=== PATIENT | female | born 1950 | race Caucasian/White ===

== ENCOUNTER → 2017-12-26 09:44 | Outpatient (CLI) | payer MEDICARE, BC, SELFPAY ==
--- NOTE | 2017-12-26 | DI.MG.S_ITS ---
BILATERAL DIGITAL SCREENING MAMMOGRAM 3D/2D WITH CAD: 12/26/2017 CLINICAL: Routine screening. Family history of breast cancer. Comparison is made to exams dated: 07/07/2016 mammogram, 05/31/2015 mammogram, and 03/17/2014 mammogram - [facility]. The tissue of both breasts is extremely dense, which lowers the sensitivity of mammography. Current study was also evaluated with a Computer Aided Detection (CAD) system. There is a biopsy clip in the left breast. No significant masses, calcifications, or other findings are seen in either breast. There has been no significant interval change. IMPRESSION: NEGATIVE There is no mammographic evidence of malignancy. A 1 year screening mammogram is recommended. This exam was interpreted at Station ID: [id number]. NOTE: For mammograms, a report in lay terms will be sent to the patient. Approximately 15% of breast malignancies will not be visualized mammographically. In the management of a palpable breast mass, a negative mammogram must not discourage biopsy of a clinically suspicious lesion. Electronically Signed By: Erica han/mikal:12/26/2017 10:27:17 copy to: Erica Jonas letter sent: Normal Exam ACR BI-RADS Category 1: Negative [id number]
== END ==
PROVIDERS: Family Provider Family Medicine; Visit Provider Family Medicine
DX: Z12.31 Encounter for screening mammogram for malignant neoplasm of breast (principal); Z80.3 Family history of malignant neoplasm of breast
CPT/HCPCS: 77063; 77067

== ENCOUNTER → 2018-03-28 11:24 | Outpatient (CLI) | payer MEDICARE, BC, SELFPAY ==
--- NOTE | 2018-03-28 11:29 | DI.RAD.S_ITS ---
PROCEDURE: XR HIP W PEL IF DONE RT 2V INDICATIONS: eval hip and neck of femur as well as acetetabullar match TECHNIQUE: 2 views of the hip were acquired. COMPARISON: [facility], , HIP 2V RIGHT, 04/16/2012, 10:57. FINDINGS: Bones: No fractures or dislocations. No suspicious bony lesions. The visualized pelvic ring appears intact. Moderate narrowing of the hip joint space with subchondral sclerosis and spurring, slightly progressed since 04/16/12 Soft tissues: No suspicious soft tissue calcifications or masses. IMPRESSION: Slight interval progression in moderate right hip joint degeneration since 04/16/12. Dictated by: Vj Palmer M.D. on 03/28/2018 at 13:06 Approved by: Vj Palmer M.D. on 03/28/2018 at 13:07
== END ==
PROVIDERS: PCP Family Medicine; Visit Provider Nurse Practitioner Family
DX: M25.551 Pain in right hip (principal); M16.11 Unilateral primary osteoarthritis, right hip
CPT/HCPCS: 73502

== ENCOUNTER → 2018-11-29 09:14 | Outpatient (CLI) | payer MEDICARE, BC, SELFPAY ==
[2018-11-29 10:11] LABS: Hematocrit 41.4 % (36-46); Hemoglobin 14.1 g/dL (12.0-16.0); Mean Corpuscular Hemoglobin 28.9 PG (26-34); Mean Corpuscular Volume 85.1 fL (80-100); Platelet Count 311 X10^3/uL (150-400); Red Blood Cell Count 4.87 X10^6/uL (4.0-5.2); Red Cell Distribution Width 13.6 % (11.6-14.8); White Blood Cell Count 3.9 X10^3/uL (4.5-11.0)
[2018-11-29 10:23] LABS: Alanine Aminotransferase 21 IU/L (9-52); Albumin 4.2 g/dL (3.5-5.0); Albumin Globulin Ratio 1.4 (1.0-2.8); Alkaline Phosphatase 60 U/L (38-126); Aspartate Aminotransferase 25 IU/L (14-36); BUN Creatinine Ratio 14.3 (6-22); Bilirubin Total 1.4 mg/dL (0.2-1.3); Blood Urea Nitrogen 10 mg/dL (7-17); Calcium 9.2 mg/dL (8.4-10.2); Carbon Dioxide 34 mmol/L (22-32); Chloride 99 mmol/L (98-107); Estimated Glomerular Filt Rate > 60.0 mL/min (>60); Globulin 2.9 g/dL (1.7-4.1); Glucose 87 mg/dL (80-110); HEMOLYSIS < 15 (0-50); Potassium 3.6 mmol/L (3.4-5.1); Sodium 140 mmol/L (137-145); Total Protein 7.1 g/dL (6.3-8.2)
[2018-11-29 11:06] LABS: TSH w/ Reflex to FT4 2.23 uIU/mL (0.47-4.68)
[2018-11-29 11:13] LABS: Vitamin B12 318 pg/mL (239-931)
== END ==
PROVIDERS: PCP Family Medicine; Visit Provider Nurse Practitioner Family
DX: R53.83 Other fatigue (principal)
CPT/HCPCS: 36415; 80053; 82607; 84443; 85027

== ENCOUNTER → 2018-12-30 11:09 | Outpatient (CLI) | payer MEDICARE, BC, SELFPAY ==
--- NOTE | 2018-12-30 11:12 | DI.MG.S_ITS ---
BILATERAL DIGITAL SCREENING MAMMOGRAM 3D/2D WITH CAD: 12/30/2018 CLINICAL: Routine screening. Family history of breast cancer. Comparison is made to exams dated: 12/26/2017 mammogram, 07/07/2016 mammogram, and 05/31/2015 mammogram - [facility]. The tissue of both breasts is extremely dense, which lowers the sensitivity of mammography. Current study was also evaluated with a Computer Aided Detection (CAD) system. There is a benign biopsy clip in the left breast. No significant masses, calcifications, or other findings are seen in either breast. There has been no significant interval change. IMPRESSION: NEGATIVE There is no mammographic evidence of malignancy. A 1 year screening mammogram is recommended. This exam was interpreted at Station ID: [id number]. NOTE: For mammograms, a report in lay terms will be sent to the patient. Approximately 15% of breast malignancies will not be visualized mammographically. In the management of a palpable breast mass, a negative mammogram must not discourage biopsy of a clinically suspicious lesion. Electronically Signed By: Gabriele brown/mikal:12/30/2018 12:01:33 letter sent: Normal Exam ACR BI-RADS Category 1: Negative [id number]
== END ==
PROVIDERS: PCP Family Medicine; Visit Provider Family Medicine
DX: Z12.31 Encounter for screening mammogram for malignant neoplasm of breast (principal); Z80.3 Family history of malignant neoplasm of breast
CPT/HCPCS: 77063; 77067

== ENCOUNTER → 2019-01-13 13:31 | Outpatient (CLI) | payer MEDICARE, BC, SELFPAY ==
--- NOTE | 2019-01-13 13:33 | DI.RAD.S_ITS ---
PROCEDURE: XR CHEST 2V INDICATIONS: Cough TECHNIQUE: 2 views of the chest were acquired. COMPARISON: None. FINDINGS: Surgical changes and devices: There is a surgical clip in the left breast. Lungs and pleura: Lungs are clear. No pleural effusions or pneumothorax. Mediastinum: Mediastinal contours are normal. Heart size is normal. Bones and chest wall: No suspicious bony abnormalities. Soft tissues appear unremarkable. IMPRESSION: No acute cardiopulmonary disease. Dictated by: Mae Samuel M.D. on 01/13/2019 at 14:40 Approved by: Mae Samuel M.D. on 01/13/2019 at 14:41
== END ==
PROVIDERS: PCP Family Medicine; Visit Provider Family Medicine
DX: R05 Cough (principal)
CPT/HCPCS: 71046

== ENCOUNTER → 2019-03-27 10:39 | Outpatient (CLI) | payer MEDICARE, BC, SELFPAY ==
--- NOTE | 2019-03-27 | DI.RAD.S_ITS ---
PROCEDURE: FL BARIUM SWALLOW W SPEECH INDICATIONS: COUGH TECHNIQUE: Examination was conducted in conjunction with speech pathology per standard protocol. In the lateral projection, filming was performed of the patient swallowing. AP projection filming may also be performed with patient swallowing. COMPARISON: CXR 01/13/2019. FINDINGS: Function: The oral preparatory phase appears normal, with proper containment. Increased effort for swallowing is noted. The subsequent oral propulsive phase, pharyngeal phase, and esophageal phase of swallowing are within normal limits with all proffered substances. There is increased residue in the pharynx. Trace intermittent laryngotracheal penetration. No erickson aspiration. Small amount of vallecular and piriform sinus pooling. The patient coughed repeatedly after swallows. Morphology: No cricopharyngeal bar is identified. No cervical esophageal webs. No Zenker's diverticulum. No strictures. IMPRESSION: Trace intermittent laryngotracheal penetration. No erickson aspiration identified. Increased effort with swallowing. The patient repeatedly coughs after swallows. Please see speech pathology report. Dictated by: Lv Garza M.D. on 03/27/2019 at 12:29 Approved by: Lv Garza M.D. on 03/27/2019 at 12:33
--- NOTE | 2019-04-02 15:43 | ST.SWALLOW ---
Visit Care Team Role Provider Type Referring Provider Specialty: Address: Phone: Fax: Email: Oliva Bo DO Primary Care Provider Physician Specialty: Family Practice Address: [address] [place] [address], [address], [place], [address] Email: [email or web address] Neptali Mart MD Attending Provider Non-Staff Specialty: Allergy & Immunology Address: [address] [place] [address], [address] Email: ST Modified Barium Swallow Study CELL RELINER Modified Barium Swallow Study Start: 03/27/19 14:06 Freq: Status: Active Protocol: Document 03/27/19 14:06 LNK (Rec: 03/27/19 14:50 LNK [email or web address]) Modified Barium Swallow Study Total Time Visit Start Time 11:00 Visit Stop Time 11:30 Total Visit Minutes [address] Neptali Mart Reason for Referral cough Setting Setting Outpatient Care Patient Information Identification Type Name,Date of Patient History Tamara Mcdaniel was seen for a Modified Barium Swallow Study (MBSS) at the referral of central lab technician, Dr. Neptali Mart. Tamara had seen Dr. Mart for a recurrent cough and to determine if her allergies were contributing to her cough . Tamara reports that she coughs all the time, especially when eating/ drinking. She reports a long history of chest tightness, occassional wheezing and proximal coughing. She was diagnoses with asthma as a child Tamara has a medical history that included asthma, rhinitis, ongoing reflux and thyroid surgery. In June 2018 she had an MRI following colon surgery. The results of the MRI noted RLL atelectasis/scaring. Tamara reported that she recently had a chest xray at [facility] on 01/13/19 with the results noting no acute cardiopulmonary disease. Subjective Observations Tamara was seated in the fluoroscopy chair. Explanation of the procedure and directions for the test were provided to the patient, who indicated she understood. Patient Positioning Position View Lateral Imaging Lateral View Textures Administered Trials Presented Thin Liquid via Spoon,Thin Liquid via Cup,[place] Liquid via Spoon,[place] Liquid via Cup,Honey Liquid via Spoon, Pudding Thick Liquid via Spoon ,Regular Textures Oral Phase Source: MBSIMP (TM) (C) Bolus Specific Scoring Grid Lip Closure WFL Tongue Control During Bolus Hold WFL Bolus Prep/Mastication WFL Bolus Transport/Lingual Motion WFL A/P Lingual Propulsion Delay No Oral Residue WFL Nasal Regurgitation No Additional Oral Phase Observations Informal observation of the OM structures and function appeared grossly WNL. Natural dentition was adequate in good hygeine. Mastication was WFL with a good rotary chew. No oral residue observed post- swallow. Pharyngeal Phase Source: MBSIMP (TM) (C) Bolus Specific Scoring Grid Delayed Initiation of Pharyngeal Swallow Yes: Bolus head to the valeculla pre-swallow Soft Palate Elevation WFL Residue Along the Tongue Base Yes Clearance of Residue Along Tongue Base Mild Impairment Laryngeal Elevation Mild Impairment Anterior Hyoid Movement Moderate Impairment Epiglottic Range of Motion Moderate Impairment Vallecular Residue Yes Clearance of Vallecular Residue Moderate Impairment Laryngeal Vestibular Closure Moderate Impairment Pharyngeal Stripping Wave Moderate Impairment Posterior Pharyngeal Wall Residue Yes Clearance of Posterior Pharyngeal Wall Moderate Impairment Residue Upper Esophageal Sphincter Opening Mild Impairment Residue in the Pyriform Sinuses No Clearance of Residue in the Pyriform Mild Impairment Sinuses Esophageal Clearance Upright Position Mild Impairment Pharyngoesophageal Backflow Observed No Additional Pharyngeal Phase Observations Premature spillage into the pharyngeal cavity. Swallow response delayed until the bolus head reached the valeculla. Epiglottis did not invert resulting in consistent pooling in the valeculla. Penetration was observed into the laryngeal vestibule several times during the MBSS especially with large and/or consecutive swallows of liquids. Penetration of the residual particulate was observed x1 with solid. No aspiration observed directly. Pharyngeal stripping was incomplete, resulting in poor bolus control to the UES. Hyolaryngeal elevation was incomplete with reduced forward motion of the hyoid bone affecting the epiglottic inversion. Post swallow pooling/residue observed in the valeculla, pyriform sinuses, at the tongue base, along the posterior pharyngeal wall and at the UES. Pt coughed after most swallows . Cough was dry and at times prolonged. Again, no aspiration wa observed. However, though this can be considered normal even in a healthy swallow, there may be some microscopic aspiration that is causing her to cough so much. A double swallow for the residue was recommended along with an ENT consult for further evaluation of the chronic cough. it is possible that the pt may have a hypersensitive larynx, especially when penetration occurs. A/P View Clinical Impressions Dysphagia Type pharyngeal phase dysphagia Rehabilitation Potential Good Patient Appropriate for Therapy Yes: linguapharyngeal exercises to reduce penetration/improve epiglottic inversi Recommendations Diet Liquids Order Thin Diet Order Regular Medication Recommendation As Tolerated Aspiration Precautions Recommended Precautions Upright at 90 Degrees,Small Bites/Sips,Double Swallow, Supraglottic Swallow, Edis Maneuvor Treatment Plan Therapy Recommendations Outpatient Speech Therapy, Lingual Exercises,Base of Tongue Exercises,Compensatory Strategy Education Recommended Referrals ENT Consult Compensatory Strategies Recommendations Double Swallow,Small Bites and Sips
== END ==
PROVIDERS: PCP Family Medicine; Visit Provider Internal Medicine
DX: R05 Cough (principal); R13.10 Dysphagia, unspecified
CPT/HCPCS: 74230; 92611

== ENCOUNTER 2019-08-07 10:30 | Outpatient (RCR) | payer MEDICARE, BC, SELFPAY ==
--- NOTE | 2019-05-21 15:31 | ST.IPDYTX ---
Visit Care Team Role Provider Type Oliva Bo DO Primary Care Provider Physician Specialty: Family Practice Address: [address] [place] [address], [address], [place], [address] Email: [email or web address] Neptali Mart MD Attending Provider Non-Staff Specialty: Allergy & Immunology Address: [address] [place] [address], [address] Email: GRAPHIC USER INTERFACE DESIGNER Dysphagia Treatment GRAPHIC USER INTERFACE DESIGNER Dysphagia Treatment Start: 05/21/19 14:10 Freq: Status: Active Protocol: Document 05/21/19 14:10 LNK (Rec: 05/21/19 14:17 LNK [email or web address]) Dysphagia Treatment Session Time Visit Start Time 14:30 Visit Stop Time 15:15 Total Visit Minutes 45 Visit Information Visit Number 1 Plan of Care Dates 05/21/19-08/20/19 Setting Assessment Location Outpatient Care Visit Type Note Type Initial Evaluation Next Note Type Next Note Type Treatment Note Patient Information Identification Type Name,Picture Subjective Observations Tamara was referred for swallowing assessment and treatment by her physician, Dr Christoph Mart, for a recurrent cough. Tamara reports that she coughs all the time, especially when eating/ drinking. On 03/27/19 Tamara had a Modified Barium Swallow Study which indicated the following: premature spillage into the pharyngeal cavity with the swallow response delayed until the bolus head reached the valeculla. Epiglottis did not invert resulting in consistent pooling in the valleculla. Penetration was observed into the laryngeal vestibule several times during the MBSS especially with large and/or consecutive swallows of liquids. Penetration of the residual particulate was observed x1 with solid. No aspiration observed directly. Linguapharyngeal exercises were discussed with a recommendation for outpatient dysphagia therapy. Treatment Treatment Activities The MBSS was reviewed with Tamara. Anatomy and physiology were described and explained relative to swallowing. Penetration instances into her airway were pointed out as well as the pooling of residue within the pharynx. A graphic video of a typical swallow was also presented as a reference for her MBSS results. Tamara indicated that she understood what the results demonstrated. Therapeutic exercises were introduced to strengthen the linguapharyngeal muscles. The Mussako and Shaker exercises were demonstrated and practiced. Written instructions for each were provided to the pt for HEP. Tamara was instructed to double swallow for each bite/ sip during meals/eating. A double swallow was observed on the MBSS to be effective in reducing pharyngeal residue. Additionally cough suppression exercises were demonstrated and practiced. Written instructions for relaxed abdominal breathing and sniff and blow exercises were provided for HEP. Assessment Patient Response to Treatment Excellent Rehab Potential Excellent Aspiration Precautions Recommended Precautions Double Swallow Treatment Plan Dysphagia Goals Pt will practice HEP for cough and dysphagia daily. The frequency of coughing will be reduced while eating as well as overall during the day per pt report.
--- NOTE | 2019-05-21 15:34 | ST.OPPOC ---
Visit Care Team Role Provider Type Oliva Bo DO Primary Care Provider Physician Address: [address] [place] [address], [address], [place], [address] Neptali Mart MD Attending Provider Non-Staff Address: [address], [address] Speech Pathology Plan of Care Plan of Care Dates 05/21/19-08/20/19 Rehabilitation Potential Excellent Please Sign and Return: I have reviewed this Plan of Care and certify that the skilled therapy services above are required to meet the patient?s needs. Physician Signature Date Printed Name and Credentials Clinical Instructor Signature Printed Name and Credentials
--- NOTE | 2019-06-02 16:20 | ST.IPDYTX ---
Visit Care Team Role Provider Type Oliva Bo DO Primary Care Provider Physician Specialty: Family Practice Address: [address] [place] [address], [address], [place], [address] Email: [email or web address] Neptali Mart MD Attending Provider Non-Staff Specialty: Allergy & Immunology Address: [address] [place] [address], [address] Email: TANK PUMPER PANELBOARD Dysphagia Treatment TANK PUMPER PANELBOARD Dysphagia Treatment Start: 05/21/19 14:10 Freq: Status: Active Protocol: Document 06/02/19 15:35 LNK (Rec: 06/02/19 16:20 LNK [email or web address]) Dysphagia Treatment Session Time Visit Start Time 15:30 Visit Stop Time 16:15 Total Visit Minutes 45 Visit Information Visit Number 1 Plan of Care Dates 05/21/19-08/20/19 Setting Assessment Location Outpatient Care Visit Type Note Type Initial Evaluation Next Note Type Next Note Type Treatment Note Patient Information Identification Type Name,Picture Subjective Observations Tamara was referred for swallowing assessment and treatment by her physician, Dr Christoph Mart, for a recurrent cough. Tamara reports that she coughs all the time, especially when eating/ drinking. On 03/27/19 Tamara had a Modified Barium Swallow Study which indicated the following: premature spillage into the pharyngeal cavity with the swallow response delayed until the bolus head reached the valeculla. Epiglottis did not invert resulting in consistent pooling in the valleculla. Penetration was observed into the laryngeal vestibule several times during the MBSS especially with large and/or consecutive swallows of liquids. Penetration of the residual particulate was observed x1 with solid. No aspiration observed directly. Lingua-pharyngeal exercises were discussed with a recommendation for outpatient dysphagia therapy. Treatment Treatment Activities Cough suppression exercises were reviewed. Abdominal breathing was difficult for Tamara. using gravity as assist, and in a reclined position. Tamara placed a heavy book on her abdomen. Targeting expansion of the abdomen vs the chest, she was eventually able to be successful with abd. breathing . Sitting up, she has more difficulty maintaining the abd . breathing. Set up hierarchy of breathing in reclined, slightly elevated, etc until she is able to maintain breathing adb. while sitting upright. Tamara was unable to practice her laryngo-pharyngeal exercises secondary to oral surgery and pain. Written instructions for relaxed abdominal breathing and sniff and blow exercises were provided for HEP. Assessment Patient Response to Treatment Excellent Rehab Potential Excellent Diet Recommendations Liquids Order Thin Diet Order Regular Medication Recommendations As Tolerated Aspiration Precautions Recommended Precautions Double Swallow Treatment Plan Dysphagia Goals Pt will practice HEP for cough and dysphagia daily. The frequency of coughing will be reduced while eating as well as overall during the day per pt report. Referrals/Other Recommended Referrals ENT Consult
--- NOTE | 2019-06-09 10:41 | ST.OPTN ---
Visit Care Team Role Provider Type Oliva Bo DO Primary Care Provider Physician Address: [address] [place] [address], [address], [place], [address] Neptali Mart MD Attending Provider Non-Staff Address: [address] [place] [address], [address]
--- NOTE | 2019-07-10 11:30 | ST.IPDYTX ---
Visit Care Team Role Provider Type Oliva Bo DO Primary Care Provider Physician Specialty: Family Practice Address: [address] [place] [address], [address], [place], [address] Email: [email or web address] Neptali Mart MD Attending Provider Non-Staff Specialty: Allergy & Immunology Address: [address] [place] [address], [address] Email: RURAL CARRIER ASSOCIATE Dysphagia Treatment RURAL CARRIER ASSOCIATE Dysphagia Treatment Start: 05/21/19 14:10 Freq: Status: Active Protocol: Document 07/10/19 09:33 LNK (Rec: 07/10/19 11:30 LNK [email or web address]) Dysphagia Treatment Session Time Visit Start Time 09:30 Visit Stop Time 10:00 Total Visit Minutes 30 Visit Information Visit Number 4 Plan of Care Dates 05/21/19-08/20/19 Setting Assessment Location Outpatient Care Visit Type Note Type Treatment Note Next Note Type Next Note Type Treatment Note Patient Information Identification Type Name,Picture Subjective Observations Tamara was referred for swallowing assessment and treatment by her physician, Dr Christoph Mart, for a recurrent cough. Tamara reports that she coughs all the time, especially when eating/ drinking. On 03/27/19 Tamara had a Modified Barium Swallow Study which indicated the following: premature spillage into the pharyngeal cavity with the swallow response delayed until the bolus head reached the valeculla. Epiglottis did not invert resulting in consistent pooling in the valleculla. Penetration was observed into the laryngeal vestibule several times during the MBSS especially with large and/or consecutive swallows of liquids. Penetration of the residual particulate was observed x1 with solid. No aspiration observed directly. Linguapharyngeal exercises were discussed with a recommendation for outpatient dysphagia therapy. Treatment Treatment Activities Tamara reported that her cough/throat clearing has nearly stopped. She has noticed a big improvement. She is continuing to do the Shaker exercise and the Mussako. Evidence/research is not supporting the Mussako. I discussed the literature an we have eliminated that exercise. However, there is evidence that rapid jaw opening (max opening) is effective in hyolaryngeal elevation; The pt is to open/ close the jaw x20 over 3 sets with 10 second rests between each set. Researchers have found a significant improvement in hyolaryngeal elevation in elderly population. Abdominal breathing has improved and she is able to use abdominal breathing sitting up in a chair. Tamara does not need a heavy book on her abdomen. Continued to target the expansion of the abdomen vs the chest, she demonstrated success with abd. breathing. breathing. Tamara was unable to practice her layngopharyngeal exercises secondary to oral surgery and pain. She reported her mouth is feeling better and she anticipates starting those exercises soon. This RURAL CARRIER ASSOCIATE observed and the pt reported that she is coughing and clearing her throat less frequently Written instructions for relaxed abdominal breathing and sniff and blow exercises were provided for HEP. Assessment Patient Response to Treatment Excellent Rehab Potential Excellent Diet Recommendations Liquids Order Thin Diet Order Regular Medication Recommendations As Tolerated Aspiration Precautions Recommended Precautions Double Swallow Treatment Plan Appropriate for Continued Therapy Yes Dysphagia Goals Pt will practice HEP for cough and dysphagia daily. The frequency of coughing will be reduced while eating as well as overall during the day per pt report. Referrals/Other Recommended Referrals ENT Consult
--- NOTE | 2019-08-07 11:40 | ST.IPDYTX ---
Visit Care Team Role Provider Type Oliva Bo DO Primary Care Provider Physician Specialty: Family Practice Address: [address] [place] [address], [address], [place], [address] Email: [email or web address] Neptali Mart MD Attending Provider Non-Staff Specialty: Allergy & Immunology Address: [address] [place] [address], [address] Email: PROGRESSIVE CARE UNIT REGISTERED NURSE Dysphagia Treatment PROGRESSIVE CARE UNIT REGISTERED NURSE Dysphagia Treatment Start: 05/21/19 14:10 Freq: Status: Active Protocol: Document 08/07/19 11:24 LNK (Rec: 08/07/19 11:40 LNK [id number]) Dysphagia Treatment Session Time Visit Start Time 10:30 Visit Stop Time 11:15 Total Visit Minutes 45 Visit Information Visit Number 5 Plan of Care Dates 05/21/19-08/20/19 Setting Assessment Location Outpatient Care Visit Type Note Type Treatment Note Next Note Type Next Note Type Treatment Note Patient Information Identification Type Name,Picture Subjective Observations Tamara was referred for swallowing assessment and treatment by her physician, Dr Christoph Mart, for a recurrent cough. Tamara reports that she coughs all the time, especially when eating/ drinking. On 03/27/19 Tamara had a Modified Barium Swallow Study which indicated the following: premature spillage into the pharyngeal cavity with the swallow response delayed until the bolus head reached the valeculla. Epiglottis did not invert resulting in consistent pooling in the valleculla. Penetration was observed into the laryngeal vestibule several times during the MBSS especially with large and/or consecutive swallows of liquids. Penetration of the residual particulate was observed x1 with solid. No aspiration observed directly. Linguapharyngeal exercises were discussed with a recommendation for outpatient dysphagia therapy. Treatment Treatment Activities Tamara reported that her cough/throat clearing has nearly stopped. She did note that when she talks on the phone, she begins to have a recurring cough. Suggested her posture while on the phone may be contributing to her cough. Additionally, she may be speaking more rapidly when on the phone. Suggested she examine possible contributory factors. Also suggested that she keep water by the phone. When she feels an urge to cough, drink water. She agreed she would examine these factors. She has noticed a big improvement in swallowing and cough reduction. She is continuing to do the Shaker exercise. She is no longer doing the Mussako exercise. She tried the rapid jaw opening, but it irritated her jaw, so she stopped that exercise. Assessment Patient Response to Treatment Excellent Rehab Potential Excellent Assessment of Improvement Big improvement. Anticipate discharge next session. Diet Recommendations Liquids Order Thin Diet Order Regular Medication Recommendations As Tolerated Aspiration Precautions Recommended Precautions Double Swallow Treatment Plan Appropriate for Continued Therapy Yes Dysphagia Goals Pt will practice HEP for cough and dysphagia daily. The frequency of coughing will be reduced while eating as well as overall during the day per pt report. Referrals/Other Recommended Referrals ENT Consult
== END 2020-01-14 10:58 ==
LOC: SP 10:30
PROVIDERS: PCP Family Medicine; Visit Provider Internal Medicine
DX: R05 Cough (principal)
CPT/HCPCS: 92507; 92610

== ENCOUNTER → 2020-02-17 09:29 | Outpatient (CLI) | payer MEDICARE, BC, SELFPAY ==
[2020-02-18 09:45] LABS: COVID19 Sendout Not Detected (Not Detect)
== END ==
PROVIDERS: PCP Family Medicine; Visit Provider Nurse Practitioner
DX: Z20.828 Contact with and (suspected) exposure to other viral communicable diseases (principal)
CPT/HCPCS: 87635

== ENCOUNTER → 2020-02-21 15:12 | Outpatient (CLI) | payer MEDICARE, BC, SELFPAY ==
--- NOTE | 2020-02-21 15:45 | DI.MG.S_ITS ---
Patient Name: FLORESITA GARNICA date: 1950 Sex: F Attending Physician: Linwood Indications: Date: 02/21/2020 15:40 At the request of: FLAVIA RAMOS Procedure: MM screening mammo BI BILATERAL DIGITAL SCREENING MAMMOGRAM 3D/2D WITH CAD: 02/21/2020 CLINICAL: Routine screening. Family history of breast cancer. Comparison is made to exams dated: 12/30/2018 mammogram, 12/26/2017 mammogram, and 07/07/2016 mammogram - [facility]. The tissue of both breasts is extremely dense, which lowers the sensitivity of mammography. Current study was also evaluated with a Computer Aided Detection (CAD) system. There is a biopsy clip in the left breast. No significant masses, calcifications, or other findings are seen in either breast. There has been no significant interval change. IMPRESSION: NEGATIVE There is no mammographic evidence of malignancy. A 1 year screening mammogram is recommended. This exam was interpreted at Station ID: [id number]. NOTE: For mammograms, a report in lay terms will be sent to the patient. Approximately 15% of breast malignancies will not be visualized mammographically. In the management of a palpable breast mass, a negative mammogram must not discourage biopsy of a clinically suspicious lesion. Electronically Signed By: Neptali maciel/mikal:02/24/2020 08:38:29 letter sent: Normal Exam ACR BI-RADS Category 1: Negative [id number]
== END ==
PROVIDERS: PCP Family Medicine; Referring Provider Family Medicine; Visit Provider Family Medicine
DX: Z12.31 Encounter for screening mammogram for malignant neoplasm of breast (principal); Z80.3 Family history of malignant neoplasm of breast
CPT/HCPCS: 77063; 77067

== ENCOUNTER → 2020-07-09 08:34 | Outpatient (CLI) | payer MEDICARE, BC, SELFPAY ==
[2020-07-09] MEDS: COVID-19 VACC #1, MRNA(MOD) 100 MCG/0.5 ML VIAL IM (08:38)
== END ==
PROVIDERS: PCP Family Medicine; Visit Provider Internal Medicine
DX: Z23 Encounter for immunization (principal)
CPT/HCPCS: 0011A; 91301

== ENCOUNTER → 2020-08-06 08:28 | Outpatient (CLI) | payer MEDICARE, BC, SELFPAY ==
[2020-08-06] MEDS: COVID-19 VACC #2, MRNA(MOD) 100 MCG/0.5 ML VIAL IM (08:32)
== END ==
PROVIDERS: PCP Family Medicine; Visit Provider Internal Medicine
DX: Z23 Encounter for immunization (principal)
CPT/HCPCS: 0012A; 91301

== ENCOUNTER → 2021-03-04 08:47 | Outpatient (CLI) | payer MEDICARE, BC, SELFPAY ==
--- NOTE | 2021-03-04 08:48 | DI.MG.S_ITS ---
BILATERAL DIGITAL SCREENING MAMMOGRAM 3D/2D WITH CAD: 03/04/2021 CLINICAL: Routine screening. Family history of breast cancer. Comparison is made to exams dated: 02/21/2020 mammogram, 12/30/2018 mammogram, and 12/26/2017 mammogram - [facility]. The tissue of both breasts is extremely dense, which lowers the sensitivity of mammography. Current study was also evaluated with a Computer Aided Detection (CAD) system. There is a cluster of masses in the left breast at 12 o'clock middle depth. No other significant masses, calcifications, or other findings are seen in either breast. IMPRESSION: INCOMPLETE: NEEDS ADDITIONAL IMAGING EVALUATION The cluster of masses in the left breast is indeterminate. Additional views with possible ultrasound are recommended. This exam was interpreted at Station ID: [id number]. NOTE: For mammograms, a report in lay terms will be sent to the patient. Approximately 15% of breast malignancies will not be visualized mammographically. In the management of a palpable breast mass, a negative mammogram must not discourage biopsy of a clinically suspicious lesion. Electronically Signed By: Michael Velasquez M.D., jr/mikal:03/04/2021 12:31:13 letter sent: Additional Imaging Needed ACR BI-RADS Category 0: Incomplete [id number]
== END ==
PROVIDERS: PCP Family Medicine; Referring Provider Family Medicine; Visit Provider Family Medicine
DX: Z12.31 Encounter for screening mammogram for malignant neoplasm of breast (principal)
CPT/HCPCS: 77063; 77067

== ENCOUNTER → 2021-03-21 13:11 | Outpatient (CLI) | payer MEDICARE, BC, SELFPAY ==
--- NOTE | 2021-03-21 13:13 | DI.MG.S_ITS ---
UNILATERAL LEFT DIGITAL DIAGNOSTIC MAMMOGRAM 3D/2D WITH ADDITIONAL VIEWS: 03/21/2021 CLINICAL: Additional evaluation requested from prior study. Comparison is made to exams dated: 03/04/2021 mammogram, 02/21/2020 mammogram, and 12/30/2018 mammogram - [facility]. The tissue of left breast is extremely dense, which lowers the sensitivity of mammography. There is a focal asymmetry in the left breast at 11 o'clock middle depth. The small clustered asymmetries in the central breast are unchanged from the previous screening mammogram. No other significant masses or calcifications are seen in the breast. IMPRESSION: INCOMPLETE: NEEDS ADDITIONAL IMAGING EVALUATION There is a focal asymmetry in the left breast at the 11 o'clock position. The small clustered asymmetries in the central breast are unchanged from the previous screening mammogram. The abnormalities are indeterminate. An ultrasound is recommended. This exam was interpreted at Station ID: [id number]. NOTE: For mammograms, a report in lay terms will be sent to the patient. Approximately 15% of breast malignancies will not be visualized mammographically. In the management of a palpable breast mass, a negative mammogram must not discourage biopsy of a clinically suspicious lesion. Electronically Signed By: Michael Velasquez M.D. jr/:03/21/2021 15:27:13 ACR BI-RADS Category 0: Incomplete [id number]
--- NOTE | 2021-03-21 13:13 | DI.US.S_ITS ---
LIMITED ULTRASOUND OF LEFT BREAST: 03/21/2021 CLINICAL: Patient returns today to evaluate a focal asymmetry in the left breast. Comparison is made to exams dated: 03/21/2021 mammogram, 03/04/2021 mammogram, 02/21/2020 mammogram, 12/30/2018 mammogram, 12/26/2017 mammogram, and 07/07/2016 mammogram - [facility]. Ultrasound of the left breast 1 o'clock and 5-7 o'clock regions was performed. There is a 0.7 cm irregular solid mass with an angular margin in the left breast at 11 o'clock middle depth 5 cm from the nipple. This irregular solid mass is hypoechoic with posterior acoustic shadowing. IMPRESSION: SUSPICIOUS OF MALIGNANCY The 0.7 cm irregular solid mass in the left breast is suspicious of malignancy. An ultrasound guided biopsy is recommended. There is no sonographic correlate for the small cluster of asymmetries in the central-inferior breast, thought to represent small cysts. These should be followed with diagnostic mammogram in 6 months if the biopsy results are negative. This exam was interpreted at Station ID: [id number]. Electronically Signed By: Michael Velasquez M.D., jr/:03/21/2021 15:30:09 letter sent: Biopsy Required Ultrasound BI-RADS: 4 Suspicious for malignancy
== END ==
PROVIDERS: PCP Family Medicine; Referring Provider Family Medicine; Visit Provider Family Medicine
DX: R92.8 Other abnormal and inconclusive findings on diagnostic imaging of breast (principal); Z80.3 Family history of malignant neoplasm of breast; N63.22 Unspecified lump in the left breast, upper inner quadrant
CPT/HCPCS: 76642; 77065; G0279

== ENCOUNTER → 2021-04-07 14:02 | Outpatient (CLI) | payer MEDICARE, BC, SELFPAY ==
--- NOTE | 2021-04-07 | DI.MG.S_ITS ---
UNILATERAL LEFT DIGITAL DIAGNOSTIC MAMMOGRAM 3D/2D: 04/07/2021 CLINICAL: Left post clip. Comparison is made to exams dated: 03/21/2021 mammogram, 03/04/2021 mammogram, and 02/21/2020 mammogram - [facility]. The tissue of left breast is extremely dense, which lowers the sensitivity of mammography. There is a marker clip in the appropriate position in the left breast at 11 o'clock middle depth. This marker clip placement is at the biopsy site. IMPRESSION: POST PROCEDURE MAMMOGRAM FOR MARKER PLACEMENT There was a successful marker clip placement in the left breast middle depth. This exam was interpreted at Station ID: [id number]. NOTE: For mammograms, a report in lay terms will be sent to the patient. Approximately 15% of breast malignancies will not be visualized mammographically. In the management of a palpable breast mass, a negative mammogram must not discourage biopsy of a clinically suspicious lesion. Electronically Signed By: Tasha Musa M.D. [facility]/:04/07/2021 15:42:34 ACR BI-RADS Category Post-procedure mammogram for marker placement
--- NOTE | 2021-04-07 | PATH_ITS ---
[facility] Accession Number: [id number] . 01 Material submitted: . breast - LEFT BREAST MASS 11:00 5 CMFN . 02 Diagnosis: Left Breast Mass, 11 o'clock, 5 cm FN, Needle Core Biopsies: Benign breast parenchyma. Negative for atypical hyperplasia, in situ or invasive carcinoma. Numerous deeper levels examined. MRV 04/13/2021 1421 Local . 02 Electronically signed: . Gurmeet Garcia MD, PhD, Pathologist NPI- [id number] . 01 Gross description: . Received in formalin, labeled with the patient's name and left breast mass 11 o'clock, 5 cm FN is a filter trap containing three yellow-flores fibrofatty cores, 0.6-1.5 cm length, 0.3 cm diameter, entirely submitted. . Sections: A1: Three pieces. ([id number]) /MRV 04/08/2021 1041 Local . 02 Pathologist provided ICD-10: R92.8 . 02 CPT . 110456 Performed at: 01 [facility] [address] [facility], [place], [place] [id number] MD Андрей Mosley MD Phone: [phone] Performed at: 02 [facility] [place] [place] [address] [place], [place] [id number] MD Aurelia Shen MD Phone: [phone]
--- NOTE | 2021-04-07 14:04 | DI.US.S_ITS ---
ULTRASOUND GUIDED BIOPSY LEFT BREAST USING VACUUM DEVICE WITH MARKING DEVICE INSERTED: 04/07/2021 CLINICAL: Left breast mass. PATIENT CONSENT: Risks (minor bleeding, infection, vasovagal reaction and repeat procedure), benefits and alternatives were explained to the patient and written informed consent was obtained. Correlation is made to exams dated: 03/21/2021 ultrasound, 03/21/2021 mammogram, 03/04/2021 mammogram, 02/21/2020 mammogram, 12/30/2018 mammogram, and 12/26/2017 mammogram - [facility]. An ultrasound guided biopsy using real-time ultrasound was performed for the irregular shaped mass located in the left breast at 11 o'clock middle depth. The skin was prepped in the usual manner. A 13 gauge biopsy needle was placed adjacent to the abnormality under ultrasound guidance. Once the needle was documented to be in the correct location, three specimens were obtained using the Mammotome biopsy system. A Vision biopsy clip was inserted into the biopsy cavity. The specimens were sent to the laboratory for pathological analysis. IMPRESSION: ULTRASOUND GUIDED BIOPSY BENIGN Ultrasound guided biopsy of the mass in the left breast at 11 o'clock middle depth was performed and images documented biopsy needle at site of interest labeled at the 11 o'clock position 5cm from nipple in the left breast. Post biopsy clip placement mammogram demonstrated that the biopsy marker is in close proximity to site of prior intervention as noted by a clip in the left breast. The current biopsy marker is noted in region of minimal architectural distortion and may represent sequela of prior intervention. However, pathology indicates benign breast parenchyma. Pathology results are discordant with imaging findings. Recommend follow up left breast ultrasound to re-evaluate location of biopsy marker relative to prior mass. If they are in the same location, then recommend follow up mammogram and ultrasound in 6 months to document stability of findings. If not, re-biopsy is recommended. This exam was interpreted at Station ID: [id number]. Tasha Gandhi M.D. [facility]/:04/18/2021 18:08:52
== END ==
PROVIDERS: PCP Family Medicine; Referring Provider Family Medicine; Visit Provider Family Medicine
DX: N63.22 Unspecified lump in the left breast, upper inner quadrant
CPT/HCPCS: 19083; 77065

== ENCOUNTER → 2021-04-20 15:39 | Outpatient (CLI) | payer MEDICARE, BC, SELFPAY ==
--- NOTE | 2021-04-20 15:42 | DI.US.S_ITS ---
LIMITED ULTRASOUND OF LEFT BREAST: 04/20/2021 CLINICAL: Post left breast ultrasound biopsy, clip placment imaging. Comparison is made to exams dated: 04/07/2021 ultrasound biopsy, 04/07/2021 mammogram, 03/21/2021 ultrasound, 03/21/2021 mammogram, 03/04/2021 mammogram, and 02/21/2020 mammogram - [facility]. Real-time ultrasound of the left breast 11 o'clock region was performed on the area of interest. There is a 0.3 cm x 0.3 cm x 0.3 cm oval mass with an indistinct margin in the left breast at 11 o'clock middle depth 5 cm from the nipple. This oval mass is hypoechoic. Color flow imaging demonstrates that there is no vascularity present. This appears similar to the prior ultrasound study preceding the biopsy. The biopsy marker is visualized slightly posterior and lateral to the mass. IMPRESSION: SUSPICIOUS OF MALIGNANCY The 0.3 cm x 0.3 cm x 0.3 cm oval mass in the left breast is suspicious of malignancy. A re-biopsy is recommended given discordant pathology findings. The findings were personally discussed with the patient at the conclusion of the study by telephone. This exam was interpreted at Station ID: [id number]. Electronically Signed By: Андрей ward/:04/20/2021 16:23:52 letter sent: Biopsy Required Ultrasound BI-RADS: 4 Suspicious for malignancy
== END ==
PROVIDERS: PCP Family Medicine; Referring Provider Family Medicine; Visit Provider Family Medicine
DX: N63.22 Unspecified lump in the left breast, upper inner quadrant (principal); Z98.890 Other specified postprocedural states
CPT/HCPCS: 76642

== ENCOUNTER → 2021-05-03 | Outpatient (CLI) | payer MEDICARE, BC, SELFPAY ==
--- NOTE | 2021-05-03 | DI.MG.S_ITS ---
UNILATERAL LEFT DIGITAL DIAGNOSTIC MAMMOGRAM 3D/2D POST-NEEDLE BIOPSY: 05/03/2021 CLINICAL: Post clip placement. Comparison is made to exams dated: 04/20/2021 ultrasound, 04/07/2021 ultrasound biopsy, 04/07/2021 mammogram, 03/21/2021 mammogram, and 03/04/2021 mammogram - [facility]. The tissue of left breast is extremely dense, which lowers the sensitivity of mammography. There is a marker clip in the appropriate position in the left breast at 11 o'clock This marker clip placement is at the biopsy site. IMPRESSION: POST PROCEDURE MAMMOGRAM FOR MARKER PLACEMENT There was a successful marker clip placement in the left breast This exam was interpreted at Station ID: [id number]. NOTE: For mammograms, a report in lay terms will be sent to the patient. Approximately 15% of breast malignancies will not be visualized mammographically. In the management of a palpable breast mass, a negative mammogram must not discourage biopsy of a clinically suspicious lesion. Electronically Signed By: Vj lundberg/:05/03/2021 15:10:34 ACR BI-RADS Category Post-procedure mammogram for marker placement
--- NOTE | 2021-05-03 | PATH_ITS ---
[facility] Accession Number: [id number] . 01 Material submitted: . breast - LEFT BREAST MASS 11:00 5CMFN RE-BIOPSY . 02 Diagnosis: Left Breast, Mass 11 o'clock 5 cm FN, Core Needle Biopsies: Benign breast parenchyma with fibrosis, adenosis, and focally disordered fibrous and adipose tissue. Please see comment. Microcalcifications present in association with nonneoplastic breast tissue. Negative for atypical hyperplasia, in situ and invasive carcinoma. MRV 05/06/2021 1427 Local . 02 Comment: Additional deeper levels were examined. A few areas in this benign breast tissue show dense fibrous breast tissue with admixed adipocytes and benign non-compressed ductules without a sharply demarcated border. The differential diganosis includes fibroadenomatoid changes or possibly a hamartoma, in the appropriate clinical and radiologic setting. . As part of routine assistant manager quality management. Dr. Luna also reviewed this case and agrees with the interpretation. . 02 Electronically signed: . Aurelia Shen MD, Pathologist NPI- [id number] . 01 Gross description: . Received in formalin and labeled with the patient's name and biopsy breast are multiple pieces of flores adipose tissue ranging in size from 1.4 x 0.5 x 0.4 to 0.5 x 0.3 x 0.2 cm. All tissue is entirely submitted in cassette A1. Collection date and time is listed as 05/03/2021 at 1426 hours for a total fixation time after processing of approximately 16 hours. (BJ:[id number]) /MRV 05/04/2021 0859 Local . 02 Pathologist provided ICD-10: N63.0 . 02 CPT . 788865 Performed at: 01 [facility] [address] [place] [address], [place], [place] [id number] MD Андрей Mosley MD Phone: [phone] Performed at: [address] [place] [id number] [place], [place] [id number] MD Aurelia Shen MD Phone: [phone]
--- NOTE | 2021-05-03 13:08 | DI.US.S_ITS ---
ULTRASOUND GUIDED BIOPSY LEFT BREAST USING VACUUM DEVICE WITH MARKING DEVICE INSERTED AND POST DIGITAL MAMMOGRAPHIC IMAGIN05/03/2021 CLINICAL: Left breast mass 11:00 5cmfn repeat. PATIENT CONSENT: Risks (minor bleeding, infection, vasovagal reaction and repeat procedure), benefits and alternatives were explained to the patient and written informed consent was obtained. Correlation is made to exams dated: 04/20/2021 ultrasound, 04/07/2021 ultrasound biopsy, 04/07/2021 mammogram, 03/21/2021 ultrasound, 03/21/2021 mammogram, and 03/04/2021 mammogram - [facility]. An ultrasound guided biopsy using real-time ultrasound was performed for the irregular shaped mass located in the left breast at 11 o'clock. The skin was prepped in the usual manner. Local anesthetic was administered to the access site. A small incision was made in the breast. The abnormality was approached from the lateral aspect. A biopsy needle was placed adjacent to the abnormality under ultrasound guidance. Once the needle was documented to be in the correct location, multiple specimens were obtained using the Mammotome biopsy system. A CELERO clip was inserted into the biopsy cavity. The specimens were sent to the laboratory for pathological analysis. IMPRESSION: ULTRASOUND GUIDED BIOPSY BENIGN Ultrasound guided re-biopsy of the mass in the left breast at 11 o'clock was successful (with CELERO clip placement). Pathology demonstrate Benign breast parenchyma with fibrosis, adenosis, and focally disordered fibrous and adipose tissue. Pathology results are concordant with imaging findings. Recommend left breast mammogram and possible ultrasound in 6 months for asymmetries described on prior US 03/21/2021. This exam was interpreted at Station ID: [id number]. Vj lundberg,slc/:05/11/2021 10:44:08
== END ==
LOC: US 13:08
PROVIDERS: PCP Family Medicine; Referring Provider Family Medicine; Visit Provider Family Medicine
DX: N60.32 Fibrosclerosis of left breast (principal); N60.22 Fibroadenosis of left breast
CPT/HCPCS: 77065

== ENCOUNTER → 2021-11-11 09:25 | Outpatient (CLI) | payer MEDICARE, BC, SELFPAY ==
--- NOTE | 2021-11-11 09:26 | DI.MG.S_ITS ---
UNILATERAL LEFT DIGITAL DIAGNOSTIC MAMMOGRAM 3D/2D: 11/11/2021 CLINICAL: Short term follow up for the left breast. Comparison is made to exams dated: 05/03/2021 ultrasound biopsy, 05/03/2021 mammogram, 04/20/2021 ultrasound, 04/07/2021 ultrasound biopsy, 04/07/2021 mammogram, and 03/21/2021 mammogram - [facility]. The tissue of left breast is extremely dense, which lowers the sensitivity of mammography. Prior asymmetry is no longer seen in the left breast central to the nipple. There is a focal asymmetry biopsy proven to be fibrosis and adenosis in the left breast at 12 o'clock middle depth. This is not significantly changed. There are biopsy clips and architectural distortion associated with the focal asymmetry. Other clustered asymmetries in the central breast are not seen on the current exam. No other significant masses or calcifications are seen in the breast. IMPRESSION: PROBABLY BENIGN The biopsied architectural distortion and focal asymmetry in the left breast are consistent with fibrosis and adenosis and are stable. No other definite asymmetries. A follow-up left mammogram in 6 months is recommended to demonstrate stability. Findings and recommendations were conveyed to the patient at time of exam. This exam was interpreted at Station ID: [id number]. NOTE: For mammograms, a report in lay terms will be sent to the patient. Approximately 15% of breast malignancies will not be visualized mammographically. In the management of a palpable breast mass, a negative mammogram must not discourage biopsy of a clinically suspicious lesion. Electronically Signed By: Shanna sanches/:11/11/2021 10:31:02 letter sent: Followup Recommended ACR BI-RADS Category 3: Probably benign [id number]
== END ==
PROVIDERS: PCP Family Medicine; Referring Provider Family Medicine; Visit Provider Family Medicine
DX: N63.20 Unspecified lump in the left breast, unspecified quadrant (principal); Z98.890 Other specified postprocedural states; N64.89 Other specified disorders of breast
CPT/HCPCS: 77065; G0279

== ENCOUNTER → 2021-12-23 17:40 | Outpatient (CLI) | payer MEDICARE, BC, SELFPAY ==
[2021-12-23 18:01] LABS: Add Manual Diff / Slide Review NO; Basophils Absolute Auto 0 /uL (0-100); Basophils Percent Auto 0.6 % (0-2); Eosinophils Absolute Auto 100 /uL (0-450); Eosinophils Percent Auto 1.2 % (2-4); Hematocrit 40.1 % (36-46); Hemoglobin 13.7 g/dL (12.0-16.0); Lymphocytes Absolute Auto 1700 /uL (1100-4500); Lymphocytes Percent Auto 33.5 % (25-40); Mean Corpuscular HGB Conc 34.3 % (30-36); Mean Corpuscular Hemoglobin 30.2 PG (26-34); Monocytes Absolute Auto 500 /uL (0-900); Monocytes Percent Auto 9.6 % (3-14); Neutrophils Absolute Auto 2700 /uL (1500-7000); Neutrophils Percent Auto 55.1 % (50-75); Platelet Count 292 X10^3/uL (150-400); Red Blood Cell Count 4.55 X10^6/uL (4.0-5.2); Red Cell Distribution Width 13.3 % (11.6-14.8)
[2021-12-23 18:15] LABS: Alanine Aminotransferase 20 IU/L (<35); Albumin 4.4 g/dL (3.5-5.0); Albumin Globulin Ratio 1.5 (1.0-2.8); Alkaline Phosphatase 70 U/L (38-126); Aspartate Aminotransferase 30 IU/L (14-36); BUN Creatinine Ratio 16.1 (6-22); Bilirubin Total 1.5 mg/dL (0.2-1.3); Blood Urea Nitrogen 10 mg/dL (7-17); Carbon Dioxide 35 mmol/L (22-32); Chloride 100 mmol/L (98-107); Estimated Glomerular Filt Rate > 60 mL/min (>60); Globulin 2.9 g/dL (1.7-4.1); Glucose 82 mg/dL (80-110); HEMOLYSIS < 15 (0-50); Potassium 3.6 mmol/L (3.4-5.1); Sodium 140 mmol/L (137-145); Total Protein 7.3 g/dL (6.3-8.2)
[2021-12-23 18:33] LABS: Appearance Urine UA CLEAR; Bilirubin Urine UA NEGATIVE (NEGATIVE); Color Urine UA YELLOW; Glucose Urine UA NEGATIVE (Negative); Ketones Urine UA TRACE (NEGATIVE); Leukocyte Esterase Urine UA TRACE (NEGATIVE); Nitrite Urine UA NEGATIVE (Negative); Occult Blood Urine UA NEGATIVE (Negative); Protein Urine UA NEGATIVE (Negative); Specific Gravity Urine UA <=1.005 (1.000-1.035); Urobilinogen Urine UA 0.2 E.U./dL (0.2)
[2021-12-23 18:46] LABS: pH Urine UA 6.5 (4.5-8.0)
[2021-12-23 18:47] LABS: Bacteria Urine Occasional (0-1); Culture Indicated Urine Cult Not Indicated; RBC Urine 0-1/HPF (0-5/HPF); Squamous Epithelial Cell Urine 1-5 /HPF (0-5/HPF); WBC Urine 0-1/HPF (0-5/HPF)
[2021-12-23 20:56] LABS: TSH w/ Reflex to FT4 1.88 uIU/mL (0.47-4.68)
== END ==
PROVIDERS: PCP Family Medicine; Referring Provider Pediatrics; Visit Provider Pediatrics
DX: R03.0 Elevated blood-pressure reading, without diagnosis of hypertension (principal); R53.83 Other fatigue
CPT/HCPCS: 36415; 80053; 81001; 84443; 85025

== ENCOUNTER → 2022-05-02 13:17 | Outpatient (CLI) | payer MEDICARE, BC, SELFPAY ==
--- NOTE | 2022-05-02 13:19 | DI.MG.S_ITS ---
BILATERAL DIGITAL DIAGNOSTIC MAMMOGRAM 3D/2D SHORT-TERM FOLLOW-UP: 05/02/2022 CLINICAL: Short term follow up of the left breast, due for bilateral imaging. Comparison is made to exams dated: 11/11/2021 mammogram, 03/21/2021 mammogram, 03/04/2021 mammogram, and 02/21/2020 mammogram - [facility]. Both breasts are extremely dense, which lowers the sensitivity of mammography (category d />75% glandular tissue). There is a stable focal asymmetry in the left breast at 11 o'clock middle depth. This is demonstrated by prior biopsy to be benign fibrosis. There are biopsy clips and architectural distortion associated with the focal asymmetry. No other significant masses, calcifications, or other findings are seen in either breast. Mammograms are otherwise stable. IMPRESSION: BENIGN The focal asymmetry in the left breast is stable, consistent with fibrosis and is benign. There is no mammographic evidence of malignancy. Return to annual mammogram screening schedule is recommended. Findings and recommendations were conveyed to the patient at time of exam. Based on the Tyrer Cuzick model (a risk assessment model) the patient's lifetime risk is 12.6% and her 10 year risk is 7.5%. According to the ACR, ACS, and NCCN guidelines, an annual breast MRI exam along with mammogram is recommended if the patient's lifetime risk is 20% or greater. This exam was interpreted at Station ID: [id number]. NOTE: For mammograms, a report in lay terms will be sent to the patient. Approximately 15% of breast malignancies will not be visualized mammographically. In the management of a palpable breast mass, a negative mammogram must not discourage biopsy of a clinically suspicious lesion. Electronically Signed By: Shanna sanches/:05/02/2022 13:59:13 letter sent: Normal Exam ACR BI-RADS Category 2: Benign Finding(s) 3342F
== END ==
PROVIDERS: PCP Family Medicine; Referring Provider Family Medicine; Visit Provider Family Medicine
DX: R92.8 Other abnormal and inconclusive findings on diagnostic imaging of breast (principal); N64.89 Other specified disorders of breast
CPT/HCPCS: 77066; G0279

== ENCOUNTER → 2023-01-03 12:04 | Outpatient (CLI) | payer MEDICARE, BC, SELFPAY ==
[2023-01-03 13:32] LABS: Add Manual Diff / Slide Review NO; Basophils Absolute Auto 0 /uL (0-100); Basophils Percent Auto 0.4 % (0-2); Eosinophils Absolute Auto 100 /uL (0-450); Eosinophils Percent Auto 1.9 % (2-4); Hematocrit 38.9 % (36-46); Hemoglobin 13.4 g/dL (12.0-16.0); Lymphocytes Absolute Auto 1800 /uL (1100-4500); Lymphocytes Percent Auto 39.4 % (25-40); Mean Corpuscular HGB Conc 34.4 % (30-36); Mean Corpuscular Hemoglobin 29.8 PG (26-34); Mean Corpuscular Volume 86.6 fL (80-100); Monocytes Absolute Auto 400 /uL (0-900); Monocytes Percent Auto 9.7 % (3-14); Neutrophils Absolute Auto 2200 /uL (1500-7000); Neutrophils Percent Auto 48.6 % (50-75); Platelet Count 294 X10^3/uL (150-400); Red Blood Cell Count 4.49 X10^6/uL (4.0-5.2); Red Cell Distribution Width 13.4 % (11.6-14.8); White Blood Cell Count 4.5 X10^3/uL (4.5-11.0)
[2023-01-03 13:42] LABS: Alanine Aminotransferase 19 IU/L (<35); Albumin 3.9 g/dL (3.5-5.0); Albumin Globulin Ratio 1.4 (1.0-2.8); Alkaline Phosphatase 67 U/L (38-126); Aspartate Aminotransferase 24 IU/L (14-36); BUN Creatinine Ratio 17.7 (6-22); Bilirubin Total 1.5 mg/dL (0.2-1.3); Blood Urea Nitrogen 11 mg/dL (7-17); Calcium 8.8 mg/dL (8.4-10.2); Carbon Dioxide 34 mmol/L (22-32); Chloride 100 mmol/L (98-107); Cholesterol 201 mg/dL (140-199); Estimated Glomerular Filt Rate > 60 mL/min (>60); Globulin 2.7 g/dL (1.7-4.1); Glucose 95 mg/dL (80-110); HDL Cholesterol 81 mg/dL (40-60); HEMOLYSIS < 15 (0-50); LDL Cholesterol Calculated 107 mg/dL (<100); Potassium 3.9 mmol/L (3.4-5.1); Sodium 136 mmol/L (137-145); Total Protein 6.6 g/dL (6.3-8.2); Triglycerides 64 mg/dL (35-150)
== END ==
PROVIDERS: PCP Family Medicine; Referring Provider Family Medicine; Visit Provider Family Medicine
DX: I10 Essential (primary) hypertension (principal)
CPT/HCPCS: 36415; 80053; 80061; 85025

== ENCOUNTER → 2023-05-01 11:31 | Outpatient (CLI) | payer MEDICARE, BC, SELFPAY ==
--- NOTE | 2023-05-01 11:32 | DI.RAD.S_ITS ---
Bone Density Report Name: FLORESITA GARNICA Age: 72 Sex: Female Ethnicity: White Date of : 1950 Indication: postmenopausal; screening for osteoporosis; Referring Provider: MICHAEL RAMOS Study: Bone densitometry was performed. Exam Date: May 01, 2023 Accession number: [id number] Bone Density: Region BMD T-score Z-score Classification AP Spine(L1-L4) 1.244 1.8 3.9 Normal Femoral Neck (Left) 0.604 -2.2 -0.4 Osteopenia Total Hip (Left) 0.758 -1.5 0.0 Osteopenia Femoral Neck (Right) 0.606 -2.2 -0.4 Osteopenia Total Hip (Right) 0.752 -1.6 0.0 Osteopenia Total Hip Mean 0.755 -1.6 0.0 Osteopenia World Health Organization criteria for BMD impression classify patients as: Normal (T-score at or above -1.0), Osteopenia (T-score between -1.0 and -2.5), or Osteoporosis (T-score at or below -2.5). 10-year Fracture Risk(1): Major Osteoporotic Fracture 13% Hip Fracture 2.7% Reported Risk Factors: [place] (), Neck BMD=0.604, BMI=24.3 (1) FRAX(R) Version 3.08. Fracture probability calculated for an untreated patient. Fracture probability may be lower if the patient has received treatment. Impression: The patient has low bone mass, based on the Left Femoral Neck T-score. The patient has an estimated ten-year risk of hip fracture of 2.7% and an estimated ten-year risk of major fracture of 13%, based on the WHO FRAX algorithm. Discussion: BONE DENSITY IS LOW AT ONE OR MORE SKELETAL SITES. This patient's lowest T-score is low at one or more skeletal sites. It meets the World Health Organization's (WHO) criteria for low bone mass (T-score between -1.0 and -2.5). The patient's 10-year risk of fracture as calculated by FRAX is less than the threshold where pharmacological therapy is recommended by the National Osteoporosis Foundation (NOF). However, all treatment decisions require clinical judgment and consideration of individual patient factors, including patient preferences, comorbidities, previous drug use, risk factors not captured in the FRAX model (e.g., frailty, falls, vitamin D deficiency, increased bone turnover, interval significant decline in bone density) and possible under or overestimation of fracture risk by FRAX. The patient should follow a healthful lifestyle (good nutrition with adequate calcium and vitamin D, and appropriate weight-bearing exercise). Follow-Up: Consider repeating this study in 2 to 3 years to reassess this patient's status, or sooner if there is some new clinical indication. Reported by: MIKE GANNON M.D. on 05/01/2023 11:47:00 AM.
== END ==
PROVIDERS: PCP Family Medicine; Referring Provider Family Medicine; Visit Provider Family Medicine
DX: M85.88 Other specified disorders of bone density and structure, other site (principal); Z13.820 Encounter for screening for osteoporosis
CPT/HCPCS: 77080

== ENCOUNTER → 2023-05-08 17:12 | Outpatient (CLI) | payer MEDICARE, BC, SELFPAY ==
--- NOTE | 2023-05-08 17:15 | DI.MG.S_ITS ---
BILATERAL DIGITAL SCREENING MAMMOGRAM 3D/2D WITH CAD: 05/08/2023 CLINICAL: Routine screening. Family history of breast cancer. Comparison is made to exams dated: 05/02/2022 mammogram, 11/11/2021 mammogram, 03/21/2021 mammogram, 03/04/2021 mammogram, 02/21/2020 mammogram, and 12/30/2018 mammogram - [facility]. Both breasts are extremely dense, which lowers the sensitivity of mammography (category d />75% glandular tissue). Current study was also evaluated with a Computer Aided Detection (CAD) system. There are benign vascular calcifications in both breasts. There also are benign post operative findings and biopsy clip in the left breast. No significant masses, calcifications, or other findings are seen in either breast. There has been no significant interval change. IMPRESSION: BENIGN There is no mammographic evidence of malignancy. A 1 year screening mammogram is recommended. Based on the Tyrer Cuzick model (a risk assessment model) the patient's lifetime risk is 11.9% and her 10 year risk is 7.6%. According to the ACR, ACS, and NCCN guidelines, an annual breast MRI exam along with mammogram is recommended if the patient's lifetime risk is 20% or greater. This exam was interpreted at Station ID: [id number]. NOTE: For mammograms, a report in lay terms will be sent to the patient. Approximately 15% of breast malignancies will not be visualized mammographically. In the management of a palpable breast mass, a negative mammogram must not discourage biopsy of a clinically suspicious lesion. Electronically Signed By: Lv leigh/mikal:05/09/2023 09:04:59 letter sent: Normal Exam ACR BI-RADS Category 2: Benign Finding(s) 3342F
== END ==
PROVIDERS: PCP Family Medicine; Referring Provider Family Medicine; Visit Provider Family Medicine
DX: Z12.31 Encounter for screening mammogram for malignant neoplasm of breast (principal); Z80.3 Family history of malignant neoplasm of breast
CPT/HCPCS: 77063; 77067

== ENCOUNTER → 2023-05-25 10:23 | Outpatient (CLI) | payer MEDICARE, BC, SELFPAY ==
--- NOTE | 2023-05-25 10:24 | DI.RAD.S_ITS ---
PROCEDURE: XR LUMBAR SPINE 2-3V INDICATIONS: back pain TECHNIQUE: 3 views of the lumbar spine were acquired. COMPARISON: [facility], , -SPINE 2-3 VIEWS, 10/10/2016, 12:46. FINDINGS: Bones: 5 [id number] vertebrae are present. There is normal bony alignment. No vertebral body compression fractures. No suspicious bony lesions. Disc space narrowing hypertrophic facet joints noted the lower lumbar spine Soft tissues: Overlying bowel gas pattern is normal. No suspicious soft tissue calcifications. IMPRESSION: Lower lumbar spine degenerative disc disease and arthropathy without fracture or malalignment Approved by: Santhosh Wagner M.D. on 05/25/2023 at 18:41
== END ==
PROVIDERS: PCP Family Medicine; Referring Provider Family Medicine; Visit Provider Family Medicine
DX: M51.36 Other intervertebral disc degeneration, lumbar region (principal); M47.816 Spondylosis without myelopathy or radiculopathy, lumbar region; M54.9 Dorsalgia, unspecified
CPT/HCPCS: 72100

== ENCOUNTER 2023-09-27 14:30 | Outpatient (RCR) | payer MEDICARE, BC, SELFPAY ==
--- NOTE | 2023-07-10 17:35 | PT.OIE ---
Current Diagnoses Other chronic pain (07/10/23) Low back pain, unspecified (07/10/23) Past Medical History (Last Updated 04/27/23 @ 09:58 by Anne Marie Lynch DO) Bilateral low back pain without sciatica Body posture problem Breast mass, left Cervical somatic dysfunction Chronic back pain Chronic pelvic pain in female Chronic recurrent sinusitis Chronic zinc deficiency Colon cancer (~2018) Cranial somatic dysfunction Dehydration after exertion Dupuytren's contracture of left hand Episodic lightheadedness Fatigue Fingernail abnormalities Grief Hypertension Iliotibial band syndrome, left leg Inflamed seborrheic keratosis Lumbar region somatic dysfunction Nevus Pelvic somatic dysfunction Piriformis syndrome of left side Sacral region somatic dysfunction Segmental and somatic dysfunction of abdomen and other regions Somatic dysfunction of lower extremity Strain of gluteus medius Swallowing problem Thoracic region somatic dysfunction TMJ dysfunction Viral respiratory illness Past Surgical History (Last Updated 04/27/23 @ 09:58 by Anne Marie Lynch DO) History of colectomy (~2018) Status post breast biopsy Visit Care Team Role Provider Type Naldo Palumbo DO Attending Provider Physician Family Provider Primary Care Provider Referring Provider Specialty: Family Practice Address: [address] [place] [address], [facility] Email: Physical Therapy Initial Evaluation PT-OP-A Visit Information Start: 07/05/23 16:16 Freq: Status: Active Protocol: Document 07/10/23 13:48 LRN (Rec: 07/10/23 14:33 LRN [id number]) Out-Patient Physical Therapy Visit Information Visit Information Visit Type Initial Evaluation Visit Start Time 13:48 Visit Stop Time 14:32 Total Visit Minutes 44 Visit Number 1 Evaluation Information Evaluation Date 07/10/23 Precautions Precautions Colon CA with resection 2019, back/neck pain history, HBP controlled by meds PT-OP-B Current Condition Start: 07/05/23 16:16 Freq: Status: Active Protocol: Document 07/10/23 13:48 LRN (Rec: 07/10/23 14:33 LRN [id number]) Current Condition History of Current Condition Onset Date 05/2023 Current Complaints Sciatic pain in rashawn hips, sharp stabbing. History of Current Condition Last week saw Cancer MD and is scheduled 07/20/[address] scan of pelvis and MRI of back . Has pain in L ASIS all the time that is dull achy, but with pressure pain is sharp. States that is the location of the colon resection incision (10 removal of descending colon for cancer removal, 2019 ). Developmental History Developmental History Week before Xmas was helping to decorate the [facility] ( helping little kids making snowflakes & was leaning over a lot), next day in kitchen twisted and had sharp stabbing pain. Pain decreased with rest and Advil & Alleve. A week later was sitting wrong on high bar stool (@ kitchen counter) had return of sharp pain return and had to use walker and raised toilet seat for a couple of days. R ASIS pain onset within the past 2 weeks. PMH: Per intake form: Mild high BP controlled by meds, TMJ pain, Neck pain from computer work. Treatment Goals Patient/Caregiver Goals PT goal: Finish washing dishes without onset of back pain. Have a ex program to improve hip mobility to move around in bed without pain. Vacuuming with modified posturing. Current Functional Impairments (Reported) Functional Limitations- ADL's Not able to complete washing dishes unless she takes a break, because of sharp pain. Able to last 10 minutes. Personal Factors Other Personal Factors That May Effect Colon CA 2019 w/resection of Therapy/Recovery descending colon. PT-OP-C Subjective Start: 07/05/23 16:16 Freq: Status: Active Protocol: Document 07/10/23 13:48 LRN (Rec: 07/10/23 14:33 LRN [id number]) Patient Questionnaires Oswestry Low Back Index Oswestry Score 30/100 Oswestry Impairment 20 to 39% Impaired (Score 20- 39) OP-PT Pain Assessment Pain Assessment Grid Paper Pain Assessment Grid Completed Yes Location L ASIS Pain Location Details L ASIS Intensity 5 Scale Used Numeric (0 - 10) Description Aching,Sharp Description- Other Touch/poke sharp, Achy pain is 2/10. Frequency Constant Low Back Pain Location Details Across LB/butoock pain bilaterally Intensity 4 Scale Used Numeric (0 - 10) Description Sharp Pain Aggravating Factors Lifting PT-OP-J Posture/Palpation/Skin Start: 07/05/23 16:16 Freq: Status: Active Protocol: Document 07/10/23 13:48 LRN (Rec: 07/10/23 14:33 LRN [id number]) Posture Evaluation Position Standing Head/C-Spine Posture Forward Head T-Spine Posture Increased Kyphosis L-Spine Posture Decreased Lordosis Shoulder Posture (R) Elevated Pelvis Posture (R) PSIS Posterior,(L) PSIS Inferior,(R) ASIS Inferior Weight Distribution Balanced Knee Posture (L) Genu Valgus,(R) Genu Valgus Comments Posture Comments L innominate is posterly rotated and inflared. Palpation Assessment Location ASIS' Palpation Location Rashawn ASIS, L>R Palpation Findings Tenderness Low Back Palpation Findings Tenderness PT-OP-K Range of Motion Start: 07/05/23 16:16 Freq: Status: Active Protocol: Document 07/10/23 13:48 LRN (Rec: 07/10/23 14:33 LRN [id number]) Lumbar Spine Range of Motion Lumbar Spine Active Degrees Testing Position Standing Flexion 50 Extension 7 Rotation Left 10 Rotation Right 10 Lateral Flexion Left 8 Lateral Flexion Right 8 ROM Limitations Pain Comments Flex, rot & L SB is painful. Hip Goniometric Range of Motion Hip Right Passive Testing Position Supine Internal Rotation 20 External Rotation 45 Left Passive Testing Position Supine Internal Rotation 20 External Rotation 40 PT-OP-L Special Tests Start: 07/05/23 16:16 Freq: Status: Active Protocol: Document 07/10/23 13:48 LRN (Rec: 07/10/23 14:33 LRN [id number]) Special Tests Lumbar Spine Special Tests Miky Test Results + bilaterally Comments Mild hip flexor tightnesss Prone Press Up Test Results - Manual Traction Test Results - Straight Leg Raise Test Results + at 45 deg's left, + 60 right Comments L: lat hip pain, R: gastroc pain Slump Test Results - bilaterally Vertical Spine Loading Test Results - PT-OP-M Strength Start: 07/05/23 16:16 Freq: Status: Active Protocol: Document 07/10/23 13:48 LRN (Rec: 07/10/23 14:33 LRN [id number]) Trunk Strength Trunk Manual Muscle Testing Extension 3 Fair Rotation Right 3 Fair Comments Strength is 5/5 except as indicated above. Hip Strength Hip Manual Muscle Testing Right External Rotation 3+ Fair+ Internal Rotation 5 Normal Left External Rotation 3 Fair Internal Rotation 5 Normal PT-OP-Q Treatments Start: 07/05/23 16:16 Freq: Status: Active Protocol: Document 07/10/23 13:48 LRN (Rec: 07/10/23 14:33 LRN [id number]) Therapeutic Exercises Sitting Exercises Gluteal stretch Sitting Exercise Name KTC stretch Side left Reps/Minutes 1' Comments Pt I/S to do bilaterally Hip ER stretch Sitting Exercise Name Ankle over knee stretch Side right Reps/Minutes 1' Comments Pt I/S to do bilaterally Self-Care/Home Management Treatment Education Patient Education Home Exercise Program Other Education Discussed results of evaluation, goals, and plan of care (POC). Pt agreeable to goals and POC. Activities Self-Care/Home Management Activities I/S pt in self care stretches: Sitting hip ER (knee over ankle) stretch and KTC stretch . PT-OP-T Assessment and Plan Start: 07/05/23 16:16 Freq: Status: Active Protocol: Document 07/10/23 13:48 LRN (Rec: 07/10/23 14:33 LRN [id number]) Physical Therapy Assessment Rehab Potential Rehabilitation Potential Good Evaluation Complexity Number of Personal Factors/Comorbidities 1-2 Number of Body Systems Impaired 4 or More Clinical Presentation at Evaluation Evolving Impairments Impairments Activity Tolerance,Pain, Posture,ROM,Soft Tissue Mobility,Strength,Transfers Goals Three Impairment Decreased function per TAL score of 30/100 (20-39% impaired, score 20-). Impairment TAL score of 30/100 (20-39% impaired, score 20-39). Short Term Goal (STG) Improve core/hip/pelvic stability and strength with pt able to wash dishes > 10 minutes to finish dishes without back pain. STG Duration 4 wks-08/10/23 Avionics Systems Engineer Goal (LTG) Pt is able to vacuum with proper body mechanics without LBP/R hip pain, TAL score 1-19 (1-19% impaired). LTG Duration 8 wks-09/04/23 Two Impairment Decreased core/hip mobility Impairment Pain with moving around in bed . Short Term Goal (STG) Pt will be educated in self soft tissue mob to hips abdomen and educated in pain management techniques. STG Duration 4 wks-08/10/23 Avionics Systems Engineer Goal (LTG) Pt will improve hip mobility to be able to move around in bed without pain. LTG Duration 8 wks-09/04/23 One Impairment Pt lacks appropriate self care HEP. Short Term Goal (STG) Pt will be educated in log roll transfers, proper body mechanics for ADLs, proper sitting/standing posture. STG Duration 2 wks-07/27/23 Custodial Goal (LTG) Pt will be independent in an effective self care HEP for LB /abdomen/hip mobility and LB/ core/hip strengthening, L/S, and shoulder/scapular stabilization. LTG Duration 10/02/23 Assessment Summary Assessment Pt is a 72 yo female who presents soft tissue dysfunction of the spine and abdomen, with onset of LBP and bilateral ASIS pain with palpation, probably associated with her colon resection. She is negative for neural tissue provocation of lumbar spine, but demonstrates abdominal soft tissue tenderness and exteme LE soft tissue tension with PSLR 45 deg's L, 60 deg's R. Her trunk and hip mobility is decreased as well as trunk and hip strength. Further testing for L/S radiculopathy will be done at her next visit . The pt will benefit from skilled physical therapy to reduce soft tissue dysfunction and reduce pain with core/LE strengthening. Physical Therapy Plan Frequency and Duration Frequency of Treatment 2x/Week Duration of treatment (weeks) 12 Plan of Care Start Date 07/10/23 Plan of Care End Date 10/02/23 Therapeutic Interventions Therapeutic Interventions Home Exercise Program,Joint Mobilizations,Manual Therapy, Neuromuscular Re-education, Self-Care/Home Management,Soft Tissue Mobilization, Therapeutic Activities, Therapeutic Exercises Modalities Cold Pack/Ice Massage,Hot Packs Next Visit Focus/Plan Next Note Type Treatment Note Next Visit Plan Next: Assess LE DTR's, sensation, & LE myotomal strength. POC: Manual therapy & exer to improve LB/abdomen/hip mobility and LB/core/hip strengthening for C/S, L/S, hips and shoulder/scapular stabilization, HEP, Modalities as needed for pain relief, education fof body proper mechanics and posturing (sit, stand).
--- NOTE | 2023-07-10 17:35 | PT.OPPOC ---
Physical, Occupational & Speech Therapy At [facility] Current Diagnoses Other chronic pain (07/10/23) Low back pain, unspecified (07/10/23) Visit Care Team Role Provider Type Naldo Palumbo DO Attending Provider Physician Family Provider Primary Care Provider Referring Provider Specialty: Family Practice Address: [address] [place] [address], [facility] Email: Plan Of Care PT-OP-T Assessment and Plan Start: 07/05/23 16:16 Freq: Status: Active Protocol: Document 07/10/23 13:48 LRN (Rec: 07/10/23 14:33 LRN [id number]) Physical Therapy Assessment Rehab Potential Rehabilitation Potential Good Evaluation Complexity Number of Personal Factors/Comorbidities 1-2 Number of Body Systems Impaired 4 or More Clinical Presentation at Evaluation Evolving Impairments Impairments Activity Tolerance,Pain, Posture,ROM,Soft Tissue Mobility,Strength,Transfers Goals Three Impairment Decreased function per TAL score of 30/100 (20-39% impaired, score 20-). Impairment TAL score of 30/100 (20-39% impaired, score 20-39). Short Term Goal (STG) Improve core/hip/pelvic stability and strength with pt able to wash dishes > 10 minutes to finish dishes without back pain. STG Duration 4 wks-08/10/23 Soybean Specialties Cook Goal (LTG) Pt is able to vacuum with proper body mechanics without LBP/R hip pain, TAL score 1-19 (1-19% impaired). LTG Duration 8 wks-09/04/23 Two Impairment Decreased core/hip mobility Impairment Pain with moving around in bed . Short Term Goal (STG) Pt will be educated in self soft tissue mob to hips abdomen and educated in pain management techniques. STG Duration 4 wks-08/10/23 Alf Goal (LTG) Pt will improve hip mobility to be able to move around in bed without pain. LTG Duration 8 wks-09/04/23 One Impairment Pt lacks appropriate self care HEP. Short Term Goal (STG) Pt will be educated in log roll transfers, proper body mechanics for ADLs, proper sitting/standing posture. STG Duration 2 wks-07/27/23 [employer]oybean Specialties Cook Goal (LTG) Pt will be independent in an effective self care HEP for LB /abdomen/hip mobility and LB/ core/hip strengthening, L/S, and shoulder/scapular stabilization. LTG Duration 10/02/23 Assessment Summary Assessment Pt is a 72 yo female who presents soft tissue dysfunction of the spine and abdomen, with onset of LBP and bilateral ASIS pain with palpation, probably associated with her colon resection. She is negative for neural tissue provocation of lumbar spine, but demonstrates abdominal soft tissue tenderness and exteme LE soft tissue tension with PSLR 45 deg's L, 60 deg's R. Her trunk and hip mobility is decreased as well as trunk and hip strength. Further testing for L/S radiculopathy will be done at her next visit . The pt will benefit from skilled physical therapy to reduce soft tissue dysfunction and reduce pain with core/LE strengthening. Physical Therapy Plan Frequency and Duration Frequency of Treatment 2x/Week Duration of treatment (weeks) 12 Plan of Care Start Date 07/10/23 Plan of Care End Date 10/02/23 Therapeutic Interventions Therapeutic Interventions Home Exercise Program,Joint Mobilizations,Manual Therapy, Neuromuscular Re-education, Self-Care/Home Management,Soft Tissue Mobilization, Therapeutic Activities, Therapeutic Exercises Modalities Cold Pack/Ice Massage,Hot Packs Next Visit Focus/Plan Next Note Type Treatment Note Next Visit Plan Next: Assess LE DTR's, sensation, & LE myotomal strength. POC: Manual therapy & exer to improve LB/abdomen/hip mobility and LB/core/hip strengthening for C/S, L/S, hips and shoulder/scapular stabilization, HEP, Modalities as needed for pain relief, education fof body proper mechanics and posturing (sit, stand). Plan of Care Dates Plan of Care Start Date 07/10/23 Plan of Care End Date 10/02/23 Electronically Signed by: Erica Vickers, PT 07/10/23 9203 If you are in agreement with this Plan of Care, please return a signed and dated copy. I have reviewed this Plan of Care and certify that the skilled therapy services above are required to meet the patient?s needs. Physician Signature Date Printed Name and Credentials Clinical Instructor Signature Printed Name and Credentials
--- NOTE | 2023-07-12 13:47 | PT.OTN ---
Current Diagnoses Other chronic pain (07/17/23) Low back pain, unspecified (07/17/23) Physical Therapy Treatment Note PT-OP-A Visit Information Start: 07/05/23 16:16 Freq: Status: Active Protocol: Document 07/17/23 13:47 LRN (Rec: 07/12/23 14:30 LRN [id number]) Out-Patient Physical Therapy Visit Information Visit Information Visit Start Time 13:47 Visit Stop Time 14:25 Visit Number 2 Evaluation Information Evaluation Date 07/10/23 Precautions Precautions Colon CA with resection 2019, back/neck pain history, HBP controlled by meds PT-OP-B Current Condition Start: 07/05/23 16:16 Freq: Status: Active Protocol: Document 07/10/23 13:48 LRN (Rec: 07/10/23 14:33 LRN [id number]) Current Condition History of Current Condition Onset Date 05/2023 Current Complaints Sciatic pain in vazquez hips, sharp stabbing. History of Current Condition Last week saw Cancer MD and is scheduled 07/20/[address] scan of pelvis and MRI of back . Has pain in L ASIS all the time that is dull achy, but with pressure pain is sharp. States that is the location of the colon resection incision (10 removal of descending colon for cancer removal, 2019 ). Developmental History Developmental History Week before Xmas was helping to decorate the [employer] ( helping little kids making snowflakes & was leaning over a lot), next day in kitchen twisted and had sharp stabbing pain. Pain decreased with rest and Advil & Alleve. A week later was sitting wrong on high bar stool (@ kitchen counter) had return of sharp pain return and had to use walker and raised toilet seat for a couple of days. R ASIS pain onset within the past 2 weeks. PMH: Per intake form: Mild high BP controlled by meds, TMJ pain, Neck pain from computer work. Treatment Goals Patient/Caregiver Goals PT goal: Finish washing dishes without onset of back pain. Have a ex program to improve hip mobility to move around in bed without pain. Vacuuming with modified posturing. Current Functional Impairments (Reported) Functional Limitations- ADL's Not able to complete washing dishes unless she takes a break, because of sharp pain. Able to last 10 minutes. Personal Factors Other Personal Factors That May Effect Colon CA 2019 w/resection of Therapy/Recovery descending colon. PT-OP-C Subjective Start: 07/05/23 16:16 Freq: Status: Active Protocol: Document 07/17/23 13:47 LRN (Rec: 07/12/23 14:30 LRN [id number]) OP-PT Subjective Patient Comments Patient Reported Progress Same PT-OP-H Neuro Start: 07/05/23 16:16 Freq: Status: Active Protocol: Document 07/17/23 13:47 LRN (Rec: 07/12/23 17:29 LRN [id number]) Sensation Evaluation Gross Sensation Gross Sensation WNL Deep Tendon Reflex & Clonus Assessment Deep Tendon Reflex Bilateral Achilles Deep Tendon Reflex 3+ Normal But Brisk Bilateral Patellar Deep Tendon Reflex 3+ Normal But Brisk PT-OP-J Posture/Palpation/Skin Start: 07/05/23 16:16 Freq: Status: Active Protocol: Document 07/10/23 13:48 LRN (Rec: 07/10/23 14:33 LRN [id number]) Posture Evaluation Position Standing Head/C-Spine Posture Forward Head T-Spine Posture Increased Kyphosis L-Spine Posture Decreased Lordosis Shoulder Posture (R) Elevated Pelvis Posture (R) PSIS Posterior,(L) PSIS Inferior,(R) ASIS Inferior Weight Distribution Balanced Knee Posture (L) Genu Valgus,(R) Genu Valgus Comments Posture Comments L innominate is posterly rotated and inflared. Palpation Assessment Location ASIS' Palpation Location Vazquez ASIS, L>R Palpation Findings Tenderness Low Back Palpation Findings Tenderness PT-OP-K Range of Motion Start: 07/05/23 16:16 Freq: Status: Active Protocol: Document 07/10/23 13:48 LRN (Rec: 07/10/23 14:33 LRN [id number]) Lumbar Spine Range of Motion Lumbar Spine Active Degrees Testing Position Standing Flexion 50 Extension 7 Rotation Left 10 Rotation Right 10 Lateral Flexion Left 8 Lateral Flexion Right 8 ROM Limitations Pain Comments Flex, rot & L SB is painful. Hip Goniometric Range of Motion Hip Right Passive Testing Position Supine Internal Rotation 20 External Rotation 45 Left Passive Testing Position Supine Internal Rotation 20 External Rotation 40 PT-OP-L Special Tests Start: 07/05/23 16:16 Freq: Status: Active Protocol: Document 07/10/23 13:48 LRN (Rec: 07/10/23 14:33 LRN [id number]) Special Tests Lumbar Spine Special Tests Miky Test Results + bilaterally Comments Mild hip flexor tightnesss Prone Press Up Test Results - Manual Traction Test Results - Straight Leg Raise Test Results + at 45 deg's left, + 60 right Comments L: lat hip pain, R: gastroc pain Slump Test Results - bilaterally Vertical Spine Loading Test Results - PT-OP-M Strength Start: 07/05/23 16:16 Freq: Status: Active Protocol: Document 07/17/23 13:47 LRN (Rec: 07/12/23 17:31 LRN [id number]) Hip Strength Hip Manual Muscle Testing Right Flexion (L2) 5 Normal External Rotation 3+ Fair+ Internal Rotation 5 Normal Left Flexion (L2) 5 Normal External Rotation 3 Fair Internal Rotation 5 Normal Knee Strength Knee Manual Muscle Testing Right Flexion (S2) 4+ Good+ Extension (L3) 5 Normal Left Comments 5/5 in all ms groups Ankle/Foot Strength Ankle and Foot Manual Muscle Testing Right Comments 5/5 in all ms groups Left Comments 5/5 in all ms groups PT-OP-Q Treatments Start: 07/05/23 16:16 Freq: Status: Active Protocol: Document 07/17/23 13:47 LRN (Rec: 07/12/23 14:30 LRN [id number]) Therapeutic Exercises Supine Exercises Lateral hip stretch Side bilateral Reps/Minutes 4' Piriformis stretch Side right Reps/Minutes 3' Comments Both hips tight KTC stretch Side right Reps/Minutes 3' Sitting Exercises Gluteal stretch Sitting Exercise Name KTC stretch Side left Reps/Minutes 2x Comments Pt I/S to do bilaterally, retrain on ex Hip ER stretch Sitting Exercise Name Ankle over knee stretch Side right Reps/Minutes 2x Comments Pt I/S to do bilaterally, cuing to not overstretch Other Exercises Transfer training sit<>stand Other Exercise Name Sit<>stand with stick Equipment Used cane Reps/Minutes 8' Comments Much cuing and phy cues to keep back straight and pivot at hips Transfers sit<>sup Other Exercise Name Transfer training sit<>sup w/ log roll method. Reps/Minutes x 3 Self-Care/Home Management Treatment Education Patient Education Home Exercise Program Activities Self-Care/Home Management Activities HEP: R>L Hip ER stretch (Fig 4), Piformis stretch, and lateral hip stretch. Gluteal L>R KTC stretch. I/S pt in HEP of hip hinge exer with stick. I/S Self care: log roll transfer in/out of bed. PT-OP-T Assessment and Plan Start: 07/05/23 16:16 Freq: Status: Active Protocol: Document 07/17/23 13:47 LRN (Rec: 07/12/23 14:30 LRN [id number]) Physical Therapy Assessment Goals Three Impairment Decreased function per TAL score of 30/100 (20-39% impaired, score 20-). Impairment TAL score of 30/100 (20-39% impaired, score 20-39). Short Term Goal (STG) Improve core/hip/pelvic stability and strength with pt able to wash dishes > 10 minutes to finish dishes without back pain. STG Duration 4 wks-08/10/23 Animal Scientist Goal (LTG) Pt is able to vacuum with proper body mechanics without LBP/R hip pain, TAL score 1-19 (1-19% impaired). LTG Duration 8 wks-09/04/23 Two Impairment Decreased core/hip mobility Impairment Pain with moving around in bed . Short Term Goal (STG) Pt will be educated in self soft tissue mob to hips abdomen and educated in pain management techniques. STG Duration 4 wks-08/10/23 Correction Goal (LTG) Pt will improve hip mobility to be able to move around in bed without pain. LTG Duration 8 wks-09/04/23 One Impairment Pt lacks appropriate self care HEP. Short Term Goal (STG) Pt will be educated in log roll transfers, proper body mechanics for ADLs, proper sitting/standing posture. 07/12/23: Pt educated in log roll technique for transfers in/out of bed and for hip hinging with sit<>stand. STG Duration 2 wks-07/27/23 progressed (need body mech ADLs, ed posture) Correction Goal (LTG) Pt will be independent in an effective self care HEP for LB /abdomen/hip mobility and LB/ core/hip strengthening, L/S, and shoulder/scapular stabilization. 07/12/23: HEP: R>L Hip ER stretch (Fig 4), Piformis stretch, and lateral hip stretch. 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 She tolerated hip stretches well, but shows poor ability to hip hinge for sit<>stand transfers. She needed much repetitive training before being able to perform a log roll transfer in/out of bed for LBP. Physical Therapy Plan Frequency and Duration Frequency of Treatment 2x/Week Duration of treatment (weeks) 12 Plan of Care Start Date 07/10/23 Plan of Care End Date 10/02/23 Next Visit Focus/Plan Next Note Type Treatment Note Next Visit Plan Next: Review log roll and hip hinging for transfers. Add body [facility] ADLs & posture (sit/ stand) training. Start manual therapy to improve abdominal/ LB mobility. POC: Manual therapy & exer to improve LB/abdomen/hip mobility and LB/core/hip strengthening for C/S, L/S, hips and shoulder/scapular stabilization, HEP, Modalities as needed for pain relief, education fof body proper mechanics and posturing (sit, stand).
--- NOTE | 2023-07-17 13:45 | PT.OTN ---
Current Diagnoses Other chronic pain (07/17/23) Low back pain, unspecified (07/17/23) Physical Therapy Treatment Note PT-OP-A Visit Information Start: 07/05/23 16:16 Freq: Status: Active Protocol: Document 07/17/23 13:07 SP (Rec: 07/17/23 13:47 SP [id number]) Out-Patient Physical Therapy Visit Information Visit Information Visit Type Treatment Note Visit Start Time 13:07 Visit Stop Time 13:45 Visit Number 3 Number of ETHANOL OPERATOR Visits 1 Evaluation Information Evaluation Date 07/10/23 Precautions Precautions Colon CA with resection 2018, back/neck pain history, HBP controlled by meds PT-OP-B Current Condition Start: 07/05/23 16:16 Freq: Status: Active Protocol: Document 07/10/23 13:48 LRN (Rec: 07/10/23 14:33 LRN [id number]) Current Condition History of Current Condition Onset Date 05/2023 Current Complaints Sciatic pain in vazquez hips, sharp stabbing. History of Current Condition Last week saw Cancer MD and is scheduled 07/20/[address] scan of pelvis and MRI of back . Has pain in L ASIS all the time that is dull achy, but with pressure pain is sharp. States that is the location of the colon resection incision (10 removal of descending colon for cancer removal, 2019 ). Developmental History Developmental History Week before Xmas was helping to decorate the [employer] ( helping little kids making snowflakes & was leaning over a lot), next day in kitchen twisted and had sharp stabbing pain. Pain decreased with rest and Advil & Alleve. A week later was sitting wrong on high bar stool (@ kitchen counter) had return of sharp pain return and had to use walker and raised toilet seat for a couple of days. R ASIS pain onset within the past 2 weeks. PMH: Per intake form: Mild high BP controlled by meds, TMJ pain, Neck pain from computer work. Treatment Goals Patient/Caregiver Goals PT goal: Finish washing dishes without onset of back pain. Have a ex program to improve hip mobility to move around in bed without pain. Vacuuming with modified posturing. Current Functional Impairments (Reported) Functional Limitations- ADL's Not able to complete washing dishes unless she takes a break, because of sharp pain. Able to last 10 minutes. Personal Factors Other Personal Factors That May Effect Colon CA 2019 w/resection of Therapy/Recovery descending colon. PT-OP-C Subjective Start: 07/05/23 16:16 Freq: Status: Active Protocol: Document 07/17/23 13:07 SP (Rec: 07/17/23 13:47 SP [id number]) OP-PT Subjective Patient Comments Patient Comments Pt reports doing well, brought HOs. This Fri appt [place]/ [place] MRI, CT scan. PT-OP-H Neuro Start: 07/05/23 16:16 Freq: Status: Active Protocol: Document 07/12/23 13:47 LRN (Rec: 07/12/23 17:29 LRN [id number]) Sensation Evaluation Gross Sensation Gross Sensation WNL Deep Tendon Reflex & Clonus Assessment Deep Tendon Reflex Bilateral Achilles Deep Tendon Reflex 3+ Normal But Brisk Bilateral Patellar Deep Tendon Reflex 3+ Normal But Brisk PT-OP-J Posture/Palpation/Skin Start: 07/05/23 16:16 Freq: Status: Active Protocol: Document 07/10/23 13:48 LRN (Rec: 07/10/23 14:33 LRN [id number]) Posture Evaluation Position Standing Head/C-Spine Posture Forward Head T-Spine Posture Increased Kyphosis L-Spine Posture Decreased Lordosis Shoulder Posture (R) Elevated Pelvis Posture (R) PSIS Posterior,(L) PSIS Inferior,(R) ASIS Inferior Weight Distribution Balanced Knee Posture (L) Genu Valgus,(R) Genu Valgus Comments Posture Comments L innominate is posterly rotated and inflared. Palpation Assessment Location ASIS' Palpation Location Vazquez ASIS, L>R Palpation Findings Tenderness Low Back Palpation Findings Tenderness PT-OP-K Range of Motion Start: 07/05/23 16:16 Freq: Status: Active Protocol: Document 07/10/23 13:48 LRN (Rec: 07/10/23 14:33 LRN [id number]) Lumbar Spine Range of Motion Lumbar Spine Active Degrees Testing Position Standing Flexion 50 Extension 7 Rotation Left 10 Rotation Right 10 Lateral Flexion Left 8 Lateral Flexion Right 8 ROM Limitations Pain Comments Flex, rot & L SB is painful. Hip Goniometric Range of Motion Hip Right Passive Testing Position Supine Internal Rotation 20 External Rotation 45 Left Passive Testing Position Supine Internal Rotation 20 External Rotation 40 PT-OP-L Special Tests Start: 07/05/23 16:16 Freq: Status: Active Protocol: Document 07/10/23 13:48 LRN (Rec: 07/10/23 14:33 LRN [id number]) Special Tests Lumbar Spine Special Tests Miky Test Results + bilaterally Comments Mild hip flexor tightnesss Prone Press Up Test Results - Manual Traction Test Results - Straight Leg Raise Test Results + at 45 deg's left, + 60 right Comments L: lat hip pain, R: gastroc pain Slump Test Results - bilaterally Vertical Spine Loading Test Results - PT-OP-M Strength Start: 07/05/23 16:16 Freq: Status: Active Protocol: Document 07/12/23 13:47 LRN (Rec: 07/12/23 17:31 LRN [id number]) Hip Strength Hip Manual Muscle Testing Right Flexion (L2) 5 Normal External Rotation 3+ Fair+ Internal Rotation 5 Normal Left Flexion (L2) 5 Normal External Rotation 3 Fair Internal Rotation 5 Normal Knee Strength Knee Manual Muscle Testing Right Flexion (S2) 4+ Good+ Extension (L3) 5 Normal Left Comments 5/5 in all ms groups Ankle/Foot Strength Ankle and Foot Manual Muscle Testing Right Comments 5/5 in all ms groups Left Comments 5/5 in all ms groups PT-OP-Q Treatments Start: 07/05/23 16:16 Freq: Status: Active Protocol: Document 07/17/23 13:07 SP (Rec: 07/17/23 13:47 SP [id number]) Therapeutic Exercises Supine Exercises FIg 4 Side bilateral Equipment Used pillow under head Reps/Minutes 60 each Comments reviewed opp pelvis toward table awareness Lateral hip stretch Supine Exercise Name reviewed Side bilateral Equipment Used pillow under head Reps/Minutes 60 Comments cued opp LE straight, keep hip toward table/not lumbar roll Piriformis stretch Supine Exercise Name reviewed Side right Equipment Used pillow under head Reps/Minutes 3' Comments Both hips tight KTC stretch Supine Exercise Name reviewed Side right Equipment Used pillow under head Reps/Minutes 60 Comments reviewed, good form Sitting Exercises Hip ER stretch Sitting Exercise Name Ankle over knee stretch Side bilateral Reps/Minutes 60 Comments Pt I/S to do bilaterally, cuing to not overstretch Other Exercises Transfer training sit<>stand Other Exercise Name Sit<>stand posture Equipment Used dowel along spine> grasp hands behind back (similar) Reps/Minutes 4' Comments Mod cues / head up/neutral CS- improves with reps by end tx Transfers sit<>sup Other Exercise Name Transfer training sit<>sup w/ log roll method. 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 Impairment TAL score of 30/100 (20-39% impaired, score 20-39). Short Term Goal (STG) Improve core/hip/pelvic stability and strength with pt able to wash dishes > 10 minutes to finish dishes without back pain. STG Duration 4 wks-08/10/23 Care Home Goal (LTG) Pt is able to vacuum with proper body mechanics without LBP/R hip pain, TAL score 1-19 (1-19% impaired). LTG Duration 8 wks-09/04/23 Two Impairment Decreased core/hip mobility Impairment Pain with moving around in bed . Short Term Goal (STG) Pt will be educated in self soft tissue mob to hips abdomen and educated in pain management techniques. STG Duration 4 wks-08/10/23 Prune Washer Goal (LTG) Pt will improve hip mobility to be able to move around in bed without pain. LTG Duration 8 wks-09/04/23 One Impairment Pt lacks appropriate self care HEP. Short Term Goal (STG) Pt will be educated in log roll transfers, proper body mechanics for ADLs, proper sitting/standing posture. 07/12/23: Pt educated in log roll technique for transfers in/out of bed and for hip hinging with sit<>stand. STG Duration 2 wks-07/27/23 progressed [facility], ed posture) Prune Washer Goal (LTG) Pt will be independent in an effective self care HEP for LB /abdomen/hip mobility and LB/ core/hip strengthening, L/S, and shoulder/scapular stabilization. 07/12/23: HEP: R>L Hip ER stretch (Fig 4), Piformis stretch, and lateral hip stretch. Gluteal L>R KTC stretch LTG Duration 10/02/23 progressed 07/12/23 Assessment Summary Assessment Pt good response to stretching HEP review, feels helping with less hip tension, cues as needed for set up and use HOs . Pt improved postural alignment, better STS use of stick with cues for head up/ forward and demonstrates similarity with grasp behind back BUEs for carryover home, not having small enough dowel. Some time spent use of postural alignment into proper body mechanics squat and lifting wt laundry basket and asd/desc stair as has to do at home, able to progress receiprocal stepping in PT ( can see step between slits in basket) without UE support, cued R LE TKE/heel/glut drive ascend without need for UE support today. Pt stated felt more confident with review HEP today and continue use during ADLs. Physical Therapy Plan Frequency and Duration Frequency of Treatment 2x/Week Duration of treatment (weeks) 12 Plan of Care Start Date 07/10/23 Plan of Care End Date 10/02/23 Therapeutic Interventions Therapeutic Interventions Home Exercise Program,Joint Mobilizations,Manual Therapy, Neuromuscular Re-education, Self-Care/Home Management,Soft Tissue Mobilization, Therapeutic Activities, Therapeutic Exercises Modalities Cold Pack/Ice Massage,Hot Packs Next Visit Focus/Plan Next Note Type Treatment Note Next Visit Plan Review body mechanics lifting laundry basket and stair mgt. Next: Start manual therapy to improve abdominal/LB mobility . POC: Manual therapy & exer to improve LB/abdomen/hip mobility and LB/core/hip strengthening for C/S, L/S, hips and shoulder/scapular stabilization, HEP, Modalities as needed for pain relief, education fof body proper mechanics and posturing (sit, stand).
--- NOTE | 2023-07-19 16:05 | PT.OTN ---
Current Diagnoses Other chronic pain (07/19/23) Low back pain, unspecified (07/19/23) Physical Therapy Treatment Note PT-OP-A Visit Information Start: 07/05/23 16:16 Freq: Status: Active Protocol: Document 07/19/23 13:48 LRN (Rec: 07/19/23 14:32 LRN [id number]) Out-Patient Physical Therapy Visit Information Visit Information Visit Type Treatment Note Visit Start Time 13:48 Visit Stop Time 14:27 Visit Number 4 Evaluation Information Evaluation Date 07/10/23 Precautions Precautions Colon CA with resection 2019, back/neck pain history, HBP controlled by meds PT-OP-B Current Condition Start: 07/05/23 16:16 Freq: Status: Active Protocol: Document 07/10/23 13:48 LRN (Rec: 07/10/23 14:33 LRN [id number]) Current Condition History of Current Condition Onset Date 05/2023 Current Complaints Sciatic pain in rashawn hips, sharp stabbing. History of Current Condition Last week saw Cancer MD and is scheduled 07/20/[address] scan of pelvis and MRI of back . Has pain in L ASIS all the time that is dull achy, but with pressure pain is sharp. States that is the location of the colon resection incision (10 removal of descending colon for cancer removal, 2019 ). Developmental History Developmental History Week before Xmas was helping to decorate the [employer] ( helping little kids making snowflakes & was leaning over a lot), next day in kitchen twisted and had sharp stabbing pain. Pain decreased with rest and Advil & Alleve. A week later was sitting wrong on high bar stool (@ kitchen counter) had return of sharp pain return and had to use walker and raised toilet seat for a couple of days. R ASIS pain onset within the past 2 weeks. PMH: Per intake form: Mild high BP controlled by meds, TMJ pain, Neck pain from computer work. Treatment Goals Patient/Caregiver Goals PT goal: Finish washing dishes without onset of back pain. Have a ex program to improve hip mobility to move around in bed without pain. Vacuuming with modified posturing. Current Functional Impairments (Reported) Functional Limitations- ADL's Not able to complete washing dishes unless she takes a break, because of sharp pain. Able to last 10 minutes. Personal Factors Other Personal Factors That May Effect Colon CA 2019 w/resection of Therapy/Recovery descending colon. PT-OP-C Subjective Start: 07/05/23 16:16 Freq: Status: Active Protocol: Document 07/19/23 13:48 LRN (Rec: 07/19/23 14:32 LRN [id number]) OP-PT Subjective Patient Comments Patient Comments States she has not been using a pole for transfers sit<> stand but has been practicing sit<>supine. PT-OP-H Neuro Start: 07/05/23 16:16 Freq: Status: Active Protocol: Document 07/12/23 13:47 LRN (Rec: 07/12/23 17:29 LRN [id number]) Sensation Evaluation Gross Sensation Gross Sensation WNL Deep Tendon Reflex & Clonus Assessment Deep Tendon Reflex Bilateral Achilles Deep Tendon Reflex 3+ Normal But Brisk Bilateral Patellar Deep Tendon Reflex 3+ Normal But Brisk PT-OP-J Posture/Palpation/Skin Start: 07/05/23 16:16 Freq: Status: Active Protocol: Document 07/10/23 13:48 LRN (Rec: 07/10/23 14:33 LRN [id number]) Posture Evaluation Position Standing Head/C-Spine Posture Forward Head T-Spine Posture Increased Kyphosis L-Spine Posture Decreased Lordosis Shoulder Posture (R) Elevated Pelvis Posture (R) PSIS Posterior,(L) PSIS Inferior,(R) ASIS Inferior Weight Distribution Balanced Knee Posture (L) Genu Valgus,(R) Genu Valgus Comments Posture Comments L innominate is posterly rotated and inflared. Palpation Assessment Location ASIS' Palpation Location Rashawn ASIS, L>R Palpation Findings Tenderness Low Back Palpation Findings Tenderness PT-OP-K Range of Motion Start: 07/05/23 16:16 Freq: Status: Active Protocol: Document 07/10/23 13:48 LRN (Rec: 07/10/23 14:33 LRN [id number]) Lumbar Spine Range of Motion Lumbar Spine Active Degrees Testing Position Standing Flexion 50 Extension 7 Rotation Left 10 Rotation Right 10 Lateral Flexion Left 8 Lateral Flexion Right 8 ROM Limitations Pain Comments Flex, rot & L SB is painful. Hip Goniometric Range of Motion Hip Right Passive Testing Position Supine Internal Rotation 20 External Rotation 45 Left Passive Testing Position Supine Internal Rotation 20 External Rotation 40 PT-OP-L Special Tests Start: 07/05/23 16:16 Freq: Status: Active Protocol: Document 07/10/23 13:48 LRN (Rec: 07/10/23 14:33 LRN [id number]) Special Tests Lumbar Spine Special Tests Miky Test Results + bilaterally Comments Mild hip flexor tightnesss Prone Press Up Test Results - Manual Traction Test Results - Straight Leg Raise Test Results + at 45 deg's left, + 60 right Comments L: lat hip pain, R: gastroc pain Slump Test Results - bilaterally Vertical Spine Loading Test Results - PT-OP-M Strength Start: 07/05/23 16:16 Freq: Status: Active Protocol: Document 07/12/23 13:47 LRN (Rec: 07/12/23 17:31 LRN [id number]) Hip Strength Hip Manual Muscle Testing Right Flexion (L2) 5 Normal External Rotation 3+ Fair+ Internal Rotation 5 Normal Left Flexion (L2) 5 Normal External Rotation 3 Fair Internal Rotation 5 Normal Knee Strength Knee Manual Muscle Testing Right Flexion (S2) 4+ Good+ Extension (L3) 5 Normal Left Comments 5/5 in all ms groups Ankle/Foot Strength Ankle and Foot Manual Muscle Testing Right Comments 5/5 in all ms groups Left Comments 5/5 in all ms groups PT-OP-Q Treatments Start: 07/05/23 16:16 Freq: Status: Active Protocol: Document 07/19/23 13:48 LRN (Rec: 07/19/23 14:32 LRN [id number]) Therapeutic Exercises Supine Exercises Thoracic Ext Supine Exercise Name Thoracic ext, pivoting at shoulders and LB. Reps/Minutes 6' Standing Exercises Scap retract/arms ER Standing Exercise Name Thoracic Ext: Scap retract/ arms ER Side bilateral Reps/Minutes 5' Comments Extra time for determining max rossy stretch, using model to teach mvmt Other Exercises Transfers sit<>sup Other Exercise Name Transfer training sit<>sup w/ log roll method. Reps/Minutes 3x Comments good form Manual Therapy Treatment Soft Tissue Mobilization L abdomen Body Location L abdominal upper quadrant, static and MWM knee rolls R Mobilization Type Myofascial Release,Sustained Pressure Intensity/Depth Superficial Body Position Hooklying Comments H hand on L upper and upper lateral trunk Neuro Re-Education Treatment Movement Re-Education Movement Re-education Activities Postural training with sit<> stand (hip hinging, as neutral as possible in spine), with dowel along spine> grasp hands behind back (similar). Sitting & standing postural training. : Hands behind back , rolling shoulders back and into ER. PT-OP-T Assessment and Plan Start: 07/05/23 16:16 Freq: Status: Active Protocol: Document 07/19/23 13:48 LRN (Rec: 07/19/23 14:32 LRN [id number]) Physical Therapy Assessment Goals Three Impairment Decreased function per TAL score of 30/100 (20-39% impaired, score 20-). Impairment TAL score of 30/100 (20-39% impaired, score 20-39). Short Term Goal (STG) Improve core/hip/pelvic stability and strength with pt able to wash dishes > 10 minutes to finish dishes without back pain. STG Duration 4 wks-08/10/23 Stained Glass Artist Goal (LTG) Pt is able to vacuum with proper body mechanics without LBP/R hip pain, TAL score 1-19 (1-19% impaired). LTG Duration 8 wks-09/04/23 Two Impairment Decreased core/hip mobility Impairment Pain with moving around in bed . Short Term Goal (STG) Pt will be educated in self soft tissue mob to hips, abdomen and educated in pain management techniques. 07/19/23: Pt educated in self manual MFR to L abdominal upper quadrant. STG Duration 4 wks-08/10/23 progressed (need mobs of hips and pn mgmt educ) Mcfp Goal (LTG) Pt will improve hip mobility to be able to move around in bed without pain. LTG Duration 8 wks-09/04/23 One Impairment Pt lacks appropriate self care HEP. Short Term Goal (STG) Pt will be educated in log roll transfers, proper body mechanics for ADLs, proper sitting/standing posture. 07/12/23: Pt educated in log roll technique for transfers in/out of bed and for hip hinging with sit<>stand. 07/19/23: Pt educated in ex to promote proper sit/stand posture. STG Duration 2 wks-07/27/23 progressed (need body mech ADLs, ed posture) Stained Glass Artist Goal (LTG) Pt will be independent in an effective self care HEP for LB /abdomen/hip mobility and LB/ core/hip strengthening, L/S, and shoulder/scapular stabilization. 07/12/23: HEP: R>L Hip ER stretch (Fig 4), Piriformis stretch, and lateral hip stretch. Gluteal L>R KTC stretch 07/19/23: HEP I/S: Sup/stand T/S ext and LTG Duration 10/02/23 progressed 07/12/23 Assessment Summary Assessment Pt has soft tissue tightness of spine and abdomen into flexion, causing LBP; and bilateral ASIS pain, probably associated with her colon resection. Pt not able to fully hip hinge with neutral spine with sit<>stand. She has difficulty with thoracic ext as expected. Physical Therapy Plan Frequency and Duration Frequency of Treatment 2x/Week Duration of treatment (weeks) 12 Plan of Care Start Date 07/10/23 Plan of Care End Date 10/02/23 Next Visit Focus/Plan Next Note Type Treatment Note Next Visit Plan Review body mechanics lifting laundry basket and stair mgt. Review hip hinging for sit<> supine. Next: Cont manual therapy to improve abdominal/LB mobility. POC: Manual therapy & exer to improve LB/abdomen/hip mobility and LB/core/hip strengthening for C/S, L/S, hips and shoulder/scapular stabilization, HEP, Modalities as needed for pain relief.
--- NOTE | 2023-07-23 15:15 | PT.OTN ---
Current Diagnoses Other chronic pain (07/23/23) Low back pain, unspecified (07/23/23) Physical Therapy Treatment Note PT-OP-A Visit Information Start: 07/05/23 16:16 Freq: Status: Active Protocol: Document 07/23/23 14:34 SP (Rec: 07/23/23 15:42 SP [id number]) Out-Patient Physical Therapy Visit Information Visit Information Visit Type Treatment Note Visit Start Time 14:34 Visit Stop Time 15:15 Visit Number 5 Number of KALSOMINER Visits 1 Evaluation Information Evaluation Date 07/10/23 Precautions Precautions Colon CA with resection 2018, back/neck pain history, HBP controlled by meds PT-OP-B Current Condition Start: 07/05/23 16:16 Freq: Status: Active Protocol: Document 07/10/23 13:48 LRN (Rec: 07/10/23 14:33 LRN [id number]) Current Condition History of Current Condition Onset Date 05/2023 Current Complaints Sciatic pain in rashawn hips, sharp stabbing. History of Current Condition Last week saw Cancer MD and is scheduled 07/20/[address] scan of pelvis and MRI of back . Has pain in L ASIS all the time that is dull achy, but with pressure pain is sharp. States that is the location of the colon resection incision (10 removal of descending colon for cancer removal, 2019 ). Developmental History Developmental History Week before Xmas was helping to decorate the [employer] ( helping little kids making snowflakes & was leaning over a lot), next day in kitchen twisted and had sharp stabbing pain. Pain decreased with rest and Advil & Alleve. A week later was sitting wrong on high bar stool (@ kitchen counter) had return of sharp pain return and had to use walker and raised toilet seat for a couple of days. R ASIS pain onset within the past 2 weeks. PMH: Per intake form: Mild high BP controlled by meds, TMJ pain, Neck pain from computer work. Treatment Goals Patient/Caregiver Goals PT goal: Finish washing dishes without onset of back pain. Have a ex program to improve hip mobility to move around in bed without pain. Vacuuming with modified posturing. Current Functional Impairments (Reported) Functional Limitations- ADL's Not able to complete washing dishes unless she takes a break, because of sharp pain. Able to last 10 minutes. Personal Factors Other Personal Factors That May Effect Colon CA 2019 w/resection of Therapy/Recovery descending colon. PT-OP-C Subjective Start: 07/05/23 16:16 Freq: Status: Active Protocol: Document 07/23/23 14:34 SP (Rec: 07/23/23 15:42 SP [id number]) OP-PT Subjective Patient Comments Patient Comments Pt reports got MRI and CT abdomen completed, printed to scan into EMR from [facility]. PT-OP-H Neuro Start: 07/05/23 16:16 Freq: Status: Active Protocol: Document 07/12/23 13:47 LRN (Rec: 07/12/23 17:29 LRN [id number]) Sensation Evaluation Gross Sensation Gross Sensation WNL Deep Tendon Reflex & Clonus Assessment Deep Tendon Reflex Bilateral Achilles Deep Tendon Reflex 3+ Normal But Brisk Bilateral Patellar Deep Tendon Reflex 3+ Normal But Brisk PT-OP-J Posture/Palpation/Skin Start: 07/05/23 16:16 Freq: Status: Active Protocol: Document 07/10/23 13:48 LRN (Rec: 07/10/23 14:33 LRN [id number]) Posture Evaluation Position Standing Head/C-Spine Posture Forward Head T-Spine Posture Increased Kyphosis L-Spine Posture Decreased Lordosis Shoulder Posture (R) Elevated Pelvis Posture (R) PSIS Posterior,(L) PSIS Inferior,(R) ASIS Inferior Weight Distribution Balanced Knee Posture (L) Genu Valgus,(R) Genu Valgus Comments Posture Comments L innominate is posterly rotated and inflared. Palpation Assessment Location ASIS' Palpation Location Rashawn ASIS, L>R Palpation Findings Tenderness Low Back Palpation Findings Tenderness PT-OP-K Range of Motion Start: 07/05/23 16:16 Freq: Status: Active Protocol: Document 07/10/23 13:48 LRN (Rec: 07/10/23 14:33 LRN [id number]) Lumbar Spine Range of Motion Lumbar Spine Active Degrees Testing Position Standing Flexion 50 Extension 7 Rotation Left 10 Rotation Right 10 Lateral Flexion Left 8 Lateral Flexion Right 8 ROM Limitations Pain Comments Flex, rot & L SB is painful. Hip Goniometric Range of Motion Hip Right Passive Testing Position Supine Internal Rotation 20 External Rotation 45 Left Passive Testing Position Supine Internal Rotation 20 External Rotation 40 PT-OP-L Special Tests Start: 01/18/24 16:16 Freq: Status: Active Protocol: Document 07/10/23 13:48 LRN (Rec: 07/10/23 14:33 LRN [id number]) Special Tests Lumbar Spine Special Tests Miky Test Results + bilaterally Comments Mild hip flexor tightnesss Prone Press Up Test Results - Manual Traction Test Results - Straight Leg Raise Test Results + at 45 deg's left, + 60 right Comments L: lat hip pain, R: gastroc pain Slump Test Results - bilaterally Vertical Spine Loading Test Results - PT-OP-M Strength Start: 07/05/23 16:16 Freq: Status: Active Protocol: Document 07/12/23 13:47 LRN (Rec: 07/12/23 17:31 LRN [id number]) Hip Strength Hip Manual Muscle Testing Right Flexion (L2) 5 Normal External Rotation 3+ Fair+ Internal Rotation 5 Normal Left Flexion (L2) 5 Normal External Rotation 3 Fair Internal Rotation 5 Normal Knee Strength Knee Manual Muscle Testing Right Flexion (S2) 4+ Good+ Extension (L3) 5 Normal Left Comments 5/5 in all ms groups Ankle/Foot Strength Ankle and Foot Manual Muscle Testing Right Comments 5/5 in all ms groups Left Comments 5/5 in all ms groups PT-OP-Q Treatments Start: 07/05/23 16:16 Freq: Status: Active Protocol: Document 07/23/23 14:34 SP (Rec: 07/23/23 15:42 SP [id number]) Therapeutic Exercises Supine Exercises Miky stretch Supine Exercise Name trialed in PT Side left Equipment Used LLE off table Reps/Minutes 60 Comments good feedback prox quad and TFL stretch painfree Thoracic Ext Supine Exercise Name Thoracic ext, pivoting at shoulders and LB. Equipment Used hooklying, arms at side press into table Reps/Minutes 10 SH x10 Comments cued rhomboid & post arm/ posterior chain engagment- no LB arch FIg 4 Side left Equipment Used pillow under head Reps/Minutes 60 each Comments reviewed opp pelvis toward table awareness Standing Exercises Scap retract/arms ER Standing Exercise Name Thoracic Ext: Scap retract/ arms ER Side bilateral Resistance AROM> TB #1- added to HEP Reps/Minutes 5 SH x10 Comments improved elongated alignment LS/TS/CS neutral, humeral ER- good rhomboid fa Other Exercises Transfers sit<>sup Other Exercise Name Transfer training sit<>sup w/ log roll method. Reps/Minutes 3 Comments good form Therapeutic Activity Therapeutic Activity body mechanics Name laundry basket Reps/Minutes crate + 5 lbs Comments 1.log roll sup>sit 2 reps- good form I 2.hip hinge pick and shovel man from floor 3.carrying up/down MAP bldg 28 stairs- receiprocal stepping -Cues for straight back/head neutral, hip hinge, lift legs. Manual Therapy Treatment Soft Tissue Mobilization L hip Body Location L TFL Mobilization Type Strumming,Sustained Pressure, Other Intensity/Depth Moderate Body Position Hooklying & Standing Comments manual strumming, reports little tingle feeling over TFL hooklying, good response painfree and no tingling ball at wall self STMs L abdomen Body Location L abdominal upper quadrant, static and MWM knee rolls R Mobilization Type Myofascial Release,Sustained Pressure Intensity/Depth Superficial Body Position Hooklying Comments L upper and upper lateral trunk, breath sink depth rossy with exhale PT-OP-T Assessment and Plan Start: 07/05/23 16:16 Freq: Status: Active Protocol: Document 07/23/23 14:34 SP (Rec: 07/23/23 15:42 SP [id number]) Physical Therapy Assessment Goals Three Impairment Decreased function per TAL score of 30/100 (20-39% impaired, score 20-). Impairment TAL score of 30/100 (20-39% impaired, score 20-39). Short Term Goal (STG) Improve core/hip/pelvic stability and strength with pt able to wash dishes > 10 minutes to finish dishes without back pain. STG Duration 4 wks-08/10/23 Mcfp Goal (LTG) Pt is able to vacuum with proper body mechanics without LBP/R hip pain, TAL score 1-19 (1-19% impaired). LTG Duration 8 wks-09/04/23 Two Impairment Decreased core/hip mobility Impairment Pain with moving around in bed . Short Term Goal (STG) Pt will be educated in self soft tissue mob to hips, abdomen and educated in pain management techniques. 07/19/23: Pt educated in self manual MFR to L abdominal upper quadrant. 07/23/23: self STM L TFL decreased anterior hip tension . STG Duration 4 wks-08/10/23 progressed (need mobs of hips and pn mgmt educ) Mold Chipper Goal (LTG) Pt will improve hip mobility to be able to move around in bed without pain. LTG Duration 8 wks-09/04/23 One Impairment Pt lacks appropriate self care HEP. Short Term Goal (STG) Pt will be educated in log roll transfers, proper body mechanics for ADLs, proper sitting/standing posture. 07/12/23: Pt educated in log roll technique for transfers in/out of bed and for hip hinging with sit<>stand. 07/19/23: Pt educated in ex to promote proper sit/stand posture. 07/23/23: ed for continued seated and standing posture, use wall and added TB resisted shld ER, improved self corrections. STG Duration 2 wks-07/27/23 progressed (need body mech ADLs, ed posture) Mold Chipper Goal (LTG) Pt will be independent in an effective self care HEP for LB /abdomen/hip mobility and LB/ core/hip strengthening, L/S, and shoulder/scapular stabilization. 07/12/23: HEP: R>L Hip ER stretch (Fig 4), Piriformis stretch, and lateral hip stretch. Gluteal L>R KTC stretch 07/19/23: HEP I/S: Sup/stand T/S ext and 07/23/23: added postural TB #1 to shld ER. LTG Duration 10/02/23 progressed 07/23/23 Assessment Summary Assessment Pt improved muscle tension softening post manual L abdominal quadrant by KALSOMINER releases with breath instruction and TFL manual then self demo use bal wall good response painfree, I will use my tennis ball at home. Pt demonstrated more elongated posture by end tx post issued resisted band and postural corrections self by pt, no pain reports leaving tx . Continue ed on body mechanics to support activity without pain increased. Recheck MRI & CT scan reports disc bulging and spinal canal narrowing. Physical Therapy Plan Frequency and Duration Frequency of Treatment 2x/Week Duration of treatment (weeks) 12 Plan of Care Start Date 07/10/23 Plan of Care End Date 10/02/23 Therapeutic Interventions Therapeutic Interventions Home Exercise Program,Joint Mobilizations,Manual Therapy, Neuromuscular Re-education, Self-Care/Home Management,Soft Tissue Mobilization, Therapeutic Activities, Therapeutic Exercises Modalities Cold Pack/Ice Massage,Hot Packs Next Visit Focus/Plan Next Note Type Treatment Note Next Visit Plan Review scanned in/hard copy MRI LS, CT scan abdomen. Next: Cont manual therapy to improve abdominal/LB mobility. POC: Manual therapy & exer to improve LB/abdomen/hip mobility and LB/core/hip strengthening for C/S, L/S, hips and shoulder/scapular stabilization, HEP, Modalities as needed for pain relief.
--- NOTE | 2023-07-25 15:24 | PT.OTN ---
Current Diagnoses Other chronic pain (07/25/23) Low back pain, unspecified (07/25/23) Physical Therapy Treatment Note PT-OP-A Visit Information Start: 07/05/23 16:16 Freq: Status: Active Protocol: Document 07/25/23 14:36 SP (Rec: 07/25/23 15:56 SP [id number]) Out-Patient Physical Therapy Visit Information Visit Information Visit Type Treatment Note Visit Start Time 14:34 Visit Stop Time 15:24 Visit Number 6 Number of SKOOG OPERATOR Visits 2 Evaluation Information Evaluation Date 07/10/23 Precautions Precautions Colon CA with resection 2018, back/neck pain history, HBP controlled by meds PT-OP-B Current Condition Start: 07/05/23 16:16 Freq: Status: Active Protocol: Document 07/10/23 13:48 LRN (Rec: 07/10/23 14:33 LRN [id number]) Current Condition History of Current Condition Onset Date 05/2023 Current Complaints Sciatic pain in rashawn hips, sharp stabbing. History of Current Condition Last week saw Cancer MD and is scheduled 07/20/[address] scan of pelvis and MRI of back . Has pain in L ASIS all the time that is dull achy, but with pressure pain is sharp. States that is the location of the colon resection incision (10 removal of descending colon for cancer removal, 2019 ). Developmental History Developmental History Week before Xmas was helping to decorate the [employer] ( helping little kids making snowflakes & was leaning over a lot), next day in kitchen twisted and had sharp stabbing pain. Pain decreased with rest and Advil & Alleve. A week later was sitting wrong on high bar stool (@ kitchen counter) had return of sharp pain return and had to use walker and raised toilet seat for a couple of days. R ASIS pain onset within the past 2 weeks. PMH: Per intake form: Mild high BP controlled by meds, TMJ pain, Neck pain from computer work. Treatment Goals Patient/Caregiver Goals PT goal: Finish washing dishes without onset of back pain. Have a ex program to improve hip mobility to move around in bed without pain. Vacuuming with modified posturing. Current Functional Impairments (Reported) Functional Limitations- ADL's Not able to complete washing dishes unless she takes a break, because of sharp pain. Able to last 10 minutes. Personal Factors Other Personal Factors That May Effect Colon CA 2019 w/resection of Therapy/Recovery descending colon. PT-OP-C Subjective Start: 07/05/23 16:16 Freq: Status: Active Protocol: Document 07/25/23 14:36 SP (Rec: 07/25/23 15:56 SP [id number]) OP-PT Subjective Patient Comments Patient Comments Pt reports got results of MRI and CT scan. L5 seems to be poking spinal cord, L1 as well . Having a Pet Scan Fri with results on Wed at [facility]. She stated was sore after last tx , good stretch though. PT-OP-H Neuro Start: 07/05/23 16:16 Freq: Status: Active Protocol: Document 07/12/23 13:47 LRN (Rec: 07/12/23 17:29 LRN [id number]) Sensation Evaluation Gross Sensation Gross Sensation WNL Deep Tendon Reflex & Clonus Assessment Deep Tendon Reflex Bilateral Achilles Deep Tendon Reflex 3+ Normal But Brisk Bilateral Patellar Deep Tendon Reflex 3+ Normal But Brisk PT-OP-J Posture/Palpation/Skin Start: 07/05/23 16:16 Freq: Status: Active Protocol: Document 07/10/23 13:48 LRN (Rec: 07/10/23 14:33 LRN [id number]) Posture Evaluation Position Standing Head/C-Spine Posture Forward Head T-Spine Posture Increased Kyphosis L-Spine Posture Decreased Lordosis Shoulder Posture (R) Elevated Pelvis Posture (R) PSIS Posterior,(L) PSIS Inferior,(R) ASIS Inferior Weight Distribution Balanced Knee Posture (L) Genu Valgus,(R) Genu Valgus Comments Posture Comments L innominate is posterly rotated and inflared. Palpation Assessment Location ASIS' Palpation Location [place] ASIS, L>R Palpation Findings Tenderness Low Back Palpation Findings Tenderness PT-OP-K Range of Motion Start: 07/05/23 16:16 Freq: Status: Active Protocol: Document 07/10/23 13:48 LRN (Rec: 07/10/23 14:33 LRN [id number]) Lumbar Spine Range of Motion Lumbar Spine Active Degrees Testing Position Standing Flexion 50 Extension 7 Rotation Left 10 Rotation Right 10 Lateral Flexion Left 8 Lateral Flexion Right 8 ROM Limitations Pain Comments Flex, rot & L SB is painful. Hip Goniometric Range of Motion Hip Right Passive Testing Position Supine Internal Rotation 20 External Rotation 45 Left Passive Testing Position Supine Internal Rotation 20 External Rotation 40 PT-OP-L Special Tests Start: 07/05/23 16:16 Freq: Status: Active Protocol: Document 07/10/23 13:48 LRN (Rec: 07/10/23 14:33 LRN [id number]) Special Tests Lumbar Spine Special Tests Miky Test Results + bilaterally Comments Mild hip flexor tightnesss Prone Press Up Test Results - Manual Traction Test Results - Straight Leg Raise Test Results + at 45 deg's left, + 60 right Comments L: lat hip pain, R: gastroc pain Slump Test Results - bilaterally Vertical Spine Loading Test Results - PT-OP-M Strength Start: 07/05/23 16:16 Freq: Status: Active Protocol: Document 07/12/23 13:47 LRN (Rec: 07/12/23 17:31 LRN [id number]) Hip Strength Hip Manual Muscle Testing Right Flexion (L2) 5 Normal External Rotation 3+ Fair+ Internal Rotation 5 Normal Left Flexion (L2) 5 Normal External Rotation 3 Fair Internal Rotation 5 Normal Knee Strength Knee Manual Muscle Testing Right Flexion (S2) 4+ Good+ Extension (L3) 5 Normal Left Comments 5/5 in all ms groups Ankle/Foot Strength Ankle and Foot Manual Muscle Testing Right Comments 5/5 in all ms groups Left Comments 5/5 in all ms groups PT-OP-Q Treatments Start: 07/05/23 16:16 Freq: Status: Active Protocol: Document 07/25/23 14:36 SP (Rec: 07/25/23 15:56 SP [id number]) Therapeutic Exercises Supine Exercises Miky stretch Supine Exercise Name added to HEP: Side left Equipment Used LLE off table Reps/Minutes 30 x2 for recovery between sets Comments good feedback prox quad and TFL stretch painfree Thoracic Ext Supine Exercise Name Thoracic ext, posture press Resistance towel roll under neck Equipment Used hooklying, arms at side press into table Reps/Minutes 10 SH x10 Comments cued rhomboid & post arm engage into table- no LB arch FIg 4 Supine Exercise Name HEP reviewed Side left Equipment Used pillow under head Reps/Minutes 30 x2 for recovery between sets Comments reviewed opp pelvis toward table awareness Lateral hip stretch Supine Exercise Name reviewed HEP Side bilateral Equipment Used pillow under head Reps/Minutes 30 x2 for recovery between sets Comments cued opp LE straight, keep hip toward table/not lumbar roll Piriformis stretch Supine Exercise Name reviewed Side right Equipment Used pillow under head Reps/Minutes 30 x2 for recovery between sets Comments Both hips tight KTC stretch Supine Exercise Name reviewed HEP Side right Equipment Used pillow under head Reps/Minutes 30 x2 for recovery between sets Comments reviewed, good form Sidelying Exercises hip abd Sidelying Exercise Name added to HEP Side bilateral Resistance top hand front ont able kickstand Reps/Minutes x10 each Comments cued stacked on side, B legs straight, core and hip abd engage- painfre Standing Exercises Scap retract/arms ER Standing Exercise Name Thoracic Ext: Scap retract/ arms ER- HEP reviewed Side bilateral Resistance AROM> TB #1- added to HEP Equipment Used back to wall, towel roll behind head Reps/Minutes 5 SH x10 Comments improved elongated alignment LS/TS/CS neutral, humeral ER- good rhomboid fa Manual Therapy Treatment Soft Tissue Mobilization L hip Body Location L TFL Mobilization Type Strumming,Sustained Pressure, Other Intensity/Depth Moderate Body Position Hooklying & Standing Comments manual strumming, reports no tingling feeling over TFL today. Hasn't tried self ball at wall STMs yet. L abdomen Body Location L abdominal upper quadrant, static and MWM knee rolls R Mobilization Type Myofascial Release,Sustained Pressure Intensity/Depth Superficial Body Position Hooklying Comments Manual and hand over had self application for home carryover : L upper and upper lateral trunk, breath sink depth rossy with exhale Self-Care/Home Management Treatment Education Other Education added TA hip abd on side, reviewed resisted shld ER with wall posture support and unlocked knees allowed decrease lumbar recruitment and increase TA engagement. Continued education for postural alignment seated/ standing in conversation carryover to support decrease lumbar strain against gravity. PT-OP-T Assessment and Plan Start: 07/05/23 16:16 Freq: Status: Active Protocol: Document 07/25/23 14:36 SP (Rec: 07/25/23 15:56 SP [id number]) Physical Therapy Assessment Goals Three Impairment Decreased function per TAL score of 30/100 (20-39% impaired, score 20-). Impairment TAL score of 30/100 (20-39% impaired, score 20-39). Short Term Goal (STG) Improve core/hip/pelvic stability and strength with pt able to wash dishes > 10 minutes to finish dishes without back pain. STG Duration 4 wks-08/10/23 Halfway Goal (LTG) Pt is able to vacuum with proper body mechanics without LBP/R hip pain, TAL score 1-19 (1-19% impaired). LTG Duration 8 wks-09/04/23 Two Impairment Decreased core/hip mobility Impairment Pain with moving around in bed . Short Term Goal (STG) Pt will be educated in self soft tissue mob to hips, abdomen and educated in pain management techniques. 07/19/23: Pt educated in self manual MFR to L abdominal upper quadrant. 07/23/23: self STM L TFL decreased anterior hip tension . STG Duration 4 wks-08/10/23 progressed (need mobs of hips and pn mgmt educ) Skin Carver Goal (LTG) Pt will improve hip mobility to be able to move around in bed without pain. LTG Duration 8 wks-09/04/23 One Impairment Pt lacks appropriate self care HEP. Short Term Goal (STG) Pt will be educated in log roll transfers, proper body mechanics for ADLs, proper sitting/standing posture. 07/12/23: Pt educated in log roll technique for transfers in/out of bed and for hip hinging with sit<>stand. 07/19/23: Pt educated in ex to promote proper sit/stand posture. 07/23/23: ed for continued seated and standing posture, use wall and added TB resisted shld ER, improved self corrections. 07/25/23: continued ed stand/sit posture. STG Duration 2 wks-07/27/23 progressed (need body mech ADLs, ed posture) Halfway Goal (LTG) Pt will be independent in an effective self care HEP for LB /abdomen/hip mobility and LB/ core/hip strengthening, L/S, and shoulder/scapular stabilization. 07/12/23: HEP: R>L Hip ER stretch (Fig 4), Piriformis stretch, and lateral hip stretch. Gluteal L>R KTC stretch 07/19/23: HEP I/S: Sup/stand T/S ext and 07/23/23: added postural TB #1 to shld ER. 07/25/23: added side hip abd AROM. LTG Duration 10/02/23 progressed 07/25/23 Assessment Summary Assessment Pt improved scapular and TA engagement during posture press and added hip abd this tx. Discussed and performed decrease length stretches to 30 and 2nd set vs 60 sec and see if improves decrease soreness. Improved postural alignment and TA/periscapular strengthening resisted shld ER with use towel behind head, cued unlock knees allowed for TA and neutral LS reports. Pt reports felt better alignment end tx. Education carryover seated and standing in conversation awareness. Physical Therapy Plan Frequency and Duration Frequency of Treatment 2x/Week Duration of treatment (weeks) 12 Plan of Care Start Date 07/10/23 Plan of Care End Date 10/02/23 Therapeutic Interventions Therapeutic Interventions Home Exercise Program,Joint Mobilizations,Manual Therapy, Neuromuscular Re-education, Self-Care/Home Management,Soft Tissue Mobilization, Therapeutic Activities, Therapeutic Exercises Modalities Cold Pack/Ice Massage,Hot Packs Next Visit Focus/Plan Next Note Type Treatment Note Next Visit Plan *Show posture/pounds image for alignment. Review HEP: hip abd added, hip stretching PRN. Next: Cont manual therapy to improve abdominal/LB mobility. POC: Manual therapy & exer to improve LB/abdomen/hip mobility and LB/core/hip strengthening for C/S, L/S, hips and shoulder/scapular stabilization, HEP, Modalities as needed for pain relief.
--- NOTE | 2023-07-31 10:25 | PT.OTN ---
Current Diagnoses Other chronic pain (07/31/23) Low back pain, unspecified (07/31/23) Physical Therapy Treatment Note PT-OP-A Visit Information Start: 07/05/23 16:16 Freq: Status: Active Protocol: Document 07/31/23 08:08 AB (Rec: 07/31/23 10:25 AB [id number]) Out-Patient Physical Therapy Visit Information Visit Information Visit Type Treatment Note Visit Note Access Code: [email or web address] for HEP Visit Start Time 09:00 Visit Stop Time 09:51 Visit Number 7 Number of PHYSICIAN SCRIBE Visits 3 Evaluation Information Evaluation Date 07/10/23 Precautions Precautions Colon CA with resection 2018, back/neck pain history, HBP controlled by meds PT-OP-B Current Condition Start: 07/05/23 16:16 Freq: Status: Active Protocol: Document 07/10/23 13:48 LRN (Rec: 07/10/23 14:33 LRN [id number]) Current Condition History of Current Condition Onset Date 05/2023 Current Complaints Sciatic pain in [place]quez hips, sharp stabbing. History of Current Condition Last week saw Cancer MD and is scheduled 07/20/[address] scan of pelvis and MRI of back . Has pain in L ASIS all the time that is dull achy, but with pressure pain is sharp. States that is the location of the colon resection incision (10 removal of descending colon for cancer removal, 2019 ). Developmental History Developmental History Week before Xmas was helping to decorate the [employer] ( helping little kids making snowflakes & was leaning over a lot), next day in kitchen twisted and had sharp stabbing pain. Pain decreased with rest and Advil & Alleve. A week later was sitting wrong on high bar stool (@ kitchen counter) had return of sharp pain return and had to use walker and raised toilet seat for a couple of days. R ASIS pain onset within the past 2 weeks. PMH: Per intake form: Mild high BP controlled by meds, TMJ pain, Neck pain from computer work. Treatment Goals Patient/Caregiver Goals PT goal: Finish washing dishes without onset of back pain. Have a ex program to improve hip mobility to move around in bed without pain. Vacuuming with modified posturing. Current Functional Impairments (Reported) Functional Limitations- ADL's Not able to complete washing dishes unless she takes a break, because of sharp pain. Able to last 10 minutes. Personal Factors Other Personal Factors That May Effect Colon CA 2019 w/resection of Therapy/Recovery descending colon. PT-OP-C Subjective Start: 07/05/23 16:16 Freq: Status: Active Protocol: Document 07/31/23 08:08 AB (Rec: 07/31/23 10:25 AB [id number]) OP-PT Subjective Patient Comments Patient Comments Patient into session with PET results, reports no cancer, nothing wrong with bones. Patient comments she didn't do a lot of exercises last weekend, but did do stretches. PT-OP-H Neuro Start: 07/05/23 16:16 Freq: Status: Active Protocol: Document 07/12/23 13:47 LRN (Rec: 07/12/23 17:29 LRN [id number]) Sensation Evaluation Gross Sensation Gross Sensation WNL Deep Tendon Reflex & Clonus Assessment Deep Tendon Reflex Bilateral Achilles Deep Tendon Reflex 3+ Normal But Brisk Bilateral Patellar Deep Tendon Reflex 3+ Normal But Brisk PT-OP-J Posture/Palpation/Skin Start: 07/05/23 16:16 Freq: Status: Active Protocol: Document 07/10/23 13:48 LRN (Rec: 07/10/23 14:33 LRN [id number]) Posture Evaluation Position Standing Head/C-Spine Posture Forward Head T-Spine Posture Increased Kyphosis L-Spine Posture Decreased Lordosis Shoulder Posture (R) Elevated Pelvis Posture (R) PSIS Posterior,(L) PSIS Inferior,(R) ASIS Inferior Weight Distribution Balanced Knee Posture (L) Genu Valgus,(R) Genu Valgus Comments Posture Comments L innominate is posterly rotated and inflared. Palpation Assessment Location ASIS' Palpation Location [place] ASIS, L>R Palpation Findings Tenderness Low Back Palpation Findings Tenderness PT-OP-K Range of Motion Start: 07/05/23 16:16 Freq: Status: Active Protocol: Document 07/10/23 13:48 LRN (Rec: 07/10/23 14:33 LRN [id number]) Lumbar Spine Range of Motion Lumbar Spine Active Degrees Testing Position Standing Flexion 50 Extension 7 Rotation Left 10 Rotation Right 10 Lateral Flexion Left 8 Lateral Flexion Right 8 ROM Limitations Pain Comments Flex, rot & L SB is painful. Hip Goniometric Range of Motion Hip Right Passive Testing Position Supine Internal Rotation 20 External Rotation 45 Left Passive Testing Position Supine Internal Rotation 20 External Rotation 40 PT-OP-L Special Tests Start: 07/05/23 16:16 Freq: Status: Active Protocol: Document 07/10/23 13:48 LRN (Rec: 07/10/23 14:33 LRN [id number]) Special Tests Lumbar Spine Special Tests Miky Test Results + bilaterally Comments Mild hip flexor tightnesss Prone Press Up Test Results - Manual Traction Test Results - Straight Leg Raise Test Results + at 45 deg's left, + 60 right Comments L: lat hip pain, R: gastroc pain Slump Test Results - bilaterally Vertical Spine Loading Test Results - PT-OP-M Strength Start: 07/05/23 16:16 Freq: Status: Active Protocol: Document 07/12/23 13:47 LRN (Rec: 07/12/23 17:31 LRN [id number]) Hip Strength Hip Manual Muscle Testing Right Flexion (L2) 5 Normal External Rotation 3+ Fair+ Internal Rotation 5 Normal Left Flexion (L2) 5 Normal External Rotation 3 Fair Internal Rotation 5 Normal Knee Strength Knee Manual Muscle Testing Right Flexion (S2) 4+ Good+ Extension (L3) 5 Normal Left Comments 5/5 in all ms groups Ankle/Foot Strength Ankle and Foot Manual Muscle Testing Right Comments 5/5 in all ms groups Left Comments 5/5 in all ms groups PT-OP-Q Treatments Start: 07/05/23 16:16 Freq: Status: Active Protocol: Document 07/31/23 08:08 AB (Rec: 07/31/23 10:25 AB [id number]) Therapeutic Exercises Supine Exercises hamstring stretch Supine Exercise Name from hooklying post manual therapy Side bilateral Reps/Minutes 60 seconds left and right X 2 Miky stretch Supine Exercise Name post manual therapy Side bilateral Equipment Used off side of table Reps/Minutes 90 sec X 2 left LE X 1 right LE Comments Verbal cues and tactile cues for breathing from diaphragm Standing Exercises squat with hip hinge Standing Exercise Name Squat !/2 to 1[address] chair Side bilateral Reps/Minutes X10 Comments Verbal cues to hip hinge and squat 1/2 to chair seat ( raised seat) Therapeutic Activity Therapeutic Activity sit to stand Name sit to stand with hip hinge Reps/Minutes X7 Comments Verbal cues to flex knees just past 90 deg, patient ed use of self tactile cues for hip hinge Manual Therapy Treatment Soft Tissue Mobilization STM hip flexor Body Location left hip flexor Mobilization Type Cross-Friction Intensity/Depth Moderate Body Position Hooklying Comments monitored for pain, performed prior to stretch STM hamstring Body Location hamstring left Mobilization Type Cross-Friction,Rolling Intensity/Depth Moderate Body Position Prone Comments monitored for pain, prior to stretch STM to piriformis Body Location left gluteal /piriformis area Mobilization Type Cross-Friction,Rolling Intensity/Depth Moderate Comments monitored for pain, prior to stretch Manual Techniques contract relax into left hip IR Type PROM contract relax into IR Body Location left hip Body Position Prone Reps/Duration X1 Comments Verbal cues Self-Care/Home Management Treatment Activities Self-Care/Home Management Activities hip hinge squat, breathing from diaphragm, and hamstring stretch from hooklying added to HEP PT-OP-T Assessment and Plan Start: 07/05/23 16:16 Freq: Status: Active Protocol: Document 07/31/23 08:08 AB (Rec: 07/31/23 10:25 AB [id number]) Physical Therapy Assessment Goals Three Impairment Decreased function per TAL score of 30/100 (20-39% impaired, score 20-). Impairment TAL score of 30/100 (20-39% impaired, score 20-39). Short Term Goal (STG) Improve core/hip/pelvic stability and strength with pt able to wash dishes > 10 minutes to finish dishes without back pain. STG Duration 4 wks-08/10/23 Jail Goal (LTG) Pt is able to vacuum with proper body mechanics without LBP/R hip pain, TAL score 1-19 (1-19% impaired). LTG Duration 8 wks-09/04/23 Two Impairment Decreased core/hip mobility Impairment Pain with moving around in bed . Short Term Goal (STG) Pt will be educated in self soft tissue mob to hips, abdomen and educated in pain management techniques. 07/19/23: Pt educated in self manual MFR to L abdominal upper quadrant. 07/23/23: self STM L TFL decreased anterior hip tension . STG Duration 4 wks-08/10/23 progressed (need mobs of hips and pn mgmt educ) Jail Goal (LTG) Pt will improve hip mobility to be able to move around in bed without pain. 07/31/2023 Observed patient perform log roll with good tech no grimacing during session LTG Duration 8 wks-09/04/23 One Impairment Pt lacks appropriate self care HEP. Short Term Goal (STG) Pt will be educated in log roll transfers, proper body mechanics for ADLs, proper sitting/standing posture. 07/12/23: Pt educated in log roll technique for transfers in/out of bed and for hip hinging with sit<>stand. 07/19/23: Pt educated in ex to promote proper sit/stand posture. 07/23/23: ed for continued seated and standing posture, use wall and added TB resisted shld ER, improved self corrections. 07/25/23: continued ed stand/sit posture. STG Duration 2 wks-07/27/23 progressed (need body mech ADLs, ed posture) Jail Goal (LTG) Pt will be independent in an effective self care HEP for LB /abdomen/hip mobility and LB/ core/hip strengthening, L/S, and shoulder/scapular stabilization. 07/12/23: HEP: R>L Hip ER stretch (Fig 4), Piriformis stretch, and lateral hip stretch. Gluteal L>R KTC stretch 07/19/23: HEP I/S: Sup/stand T/S ext and 07/23/23: added postural TB #1 to shld ER. 07/25/23: added side hip abd AROM. LTG Duration 10/02/23 progressed 07/25/23 Assessment Summary Assessment Patient reports feeling a little light headed end of session. BP 140/71 HR 58 BP. Patient reports she didn't take her heart medication yet or eat much. Patient reports back feels good ambulating out of session and was able to transfer sit to stand with improved mechanics end of session ( increased hip hinge, knees flexed just past 90 deg ) Physical Therapy Plan Frequency and Duration Frequency of Treatment 2x/Week Duration of treatment (weeks) 12 Plan of Care Start Date 07/10/23 Plan of Care End Date 10/02/23 Next Visit Focus/Plan Next Note Type Treatment Note Next Visit Plan *Show posture/pounds image for alignment. Review HEP: hip abd added, hip stretching PRN. Next: Cont manual therapy to improve abdominal/LB mobility. POC: Manual therapy & exer to improve LB/abdomen/hip mobility and LB/core/hip strengthening for C/S, L/S, hips and shoulder/scapular stabilization, HEP, Modalities as needed for pain relief.
--- NOTE | 2023-08-02 10:16 | PT.OTN ---
Current Diagnoses Other chronic pain (08/02/23) Low back pain, unspecified (08/02/23) Physical Therapy Treatment Note PT-OP-A Visit Information Start: 07/05/23 16:16 Freq: Status: Active Protocol: Document 08/02/23 09:10 LRN (Rec: 08/02/23 10:15 LRN [id number]) Out-Patient Physical Therapy Visit Information Visit Information Visit Type Treatment Note Visit Start Time 09:10 Visit Stop Time 09:56 Visit Number 8 Evaluation Information Evaluation Date 07/10/23 Precautions Precautions Colon CA with resection 2019, back/neck pain history, HBP controlled by meds PT-OP-B Current Condition Start: 07/05/23 16:16 Freq: Status: Active Protocol: Document 07/10/23 13:48 LRN (Rec: 07/10/23 14:33 LRN [id number]) Current Condition History of Current Condition Onset Date 05/2023 Current Complaints Sciatic pain in vazquez hips, sharp stabbing. History of Current Condition Last week saw Cancer MD and is scheduled 07/20/[address] scan of pelvis and MRI of back . Has pain in L ASIS all the time that is dull achy, but with pressure pain is sharp. States that is the location of the colon resection incision (10 removal of descending colon for cancer removal, 2019 ). Developmental History Developmental History Week before Xmas was helping to decorate the [facility] ( helping little kids making snowflakes & was leaning over a lot), next day in kitchen twisted and had sharp stabbing pain. Pain decreased with rest and Advil & Alleve. A week later was sitting wrong on high bar stool (@ kitchen counter) had return of sharp pain return and had to use walker and raised toilet seat for a couple of days. R ASIS pain onset within the past 2 weeks. PMH: Per intake form: Mild high BP controlled by meds, TMJ pain, Neck pain from computer work. Treatment Goals Patient/Caregiver Goals PT goal: Finish washing dishes without onset of back pain. Have a ex program to improve hip mobility to move around in bed without pain. Vacuuming with modified posturing. Current Functional Impairments (Reported) Functional Limitations- ADL's Not able to complete washing dishes unless she takes a break, because of sharp pain. Able to last 10 minutes. Personal Factors Other Personal Factors That May Effect Colon CA 2019 w/resection of Therapy/Recovery descending colon. PT-OP-C Subjective Start: 07/05/23 16:16 Freq: Status: Active Protocol: Document 08/02/23 09:10 LRN (Rec: 08/02/23 10:15 LRN [id number]) OP-PT Subjective Patient Comments Patient Comments Pt states doing sit<>stands is doable if she has the right posture. PT-OP-H Neuro Start: 07/05/23 16:16 Freq: Status: Active Protocol: Document 07/12/23 13:47 LRN (Rec: 07/12/23 17:29 LRN [id number]) Sensation Evaluation Gross Sensation Gross Sensation WNL Deep Tendon Reflex & Clonus Assessment Deep Tendon Reflex Bilateral Achilles Deep Tendon Reflex 3+ Normal But Brisk Bilateral Patellar Deep Tendon Reflex 3+ Normal But Brisk PT-OP-J Posture/Palpation/Skin Start: 07/05/23 16:16 Freq: Status: Active Protocol: Document 07/10/23 13:48 LRN (Rec: 07/10/23 14:33 LRN [id number]) Posture Evaluation Position Standing Head/C-Spine Posture Forward Head T-Spine Posture Increased Kyphosis L-Spine Posture Decreased Lordosis Shoulder Posture (R) Elevated Pelvis Posture (R) PSIS Posterior,(L) PSIS Inferior,(R) ASIS Inferior Weight Distribution Balanced Knee Posture (L) Genu Valgus,(R) Genu Valgus Comments Posture Comments L innominate is posterly rotated and inflared. Palpation Assessment Location ASIS' Palpation Location Vazquez ASIS, L>R Palpation Findings Tenderness Low Back Palpation Findings Tenderness PT-OP-K Range of Motion Start: 07/05/23 16:16 Freq: Status: Active Protocol: Document 07/10/23 13:48 LRN (Rec: 07/10/23 14:33 LRN [id number]) Lumbar Spine Range of Motion Lumbar Spine Active Degrees Testing Position Standing Flexion 50 Extension 7 Rotation Left 10 Rotation Right 10 Lateral Flexion Left 8 Lateral Flexion Right 8 ROM Limitations Pain Comments Flex, rot & L SB is painful. Hip Goniometric Range of Motion Hip Right Passive Testing Position Supine Internal Rotation 20 External Rotation 45 Left Passive Testing Position Supine Internal Rotation 20 External Rotation 40 PT-OP-L Special Tests Start: 07/05/23 16:16 Freq: Status: Active Protocol: Document 07/10/23 13:48 LRN (Rec: 07/10/23 14:33 LRN [id number]) Special Tests Lumbar Spine Special Tests Miky Test Results + bilaterally Comments Mild hip flexor tightnesss Prone Press Up Test Results - Manual Traction Test Results - Straight Leg Raise Test Results + at 45 deg's left, + 60 right Comments L: lat hip pain, R: gastroc pain Slump Test Results - bilaterally Vertical Spine Loading Test Results - PT-OP-M Strength Start: 07/05/23 16:16 Freq: Status: Active Protocol: Document 07/12/23 13:47 LRN (Rec: 07/12/23 17:31 LRN [id number]) Hip Strength Hip Manual Muscle Testing Right Flexion (L2) 5 Normal External Rotation 3+ Fair+ Internal Rotation 5 Normal Left Flexion (L2) 5 Normal External Rotation 3 Fair Internal Rotation 5 Normal Knee Strength Knee Manual Muscle Testing Right Flexion (S2) 4+ Good+ Extension (L3) 5 Normal Left Comments 5/5 in all ms groups Ankle/Foot Strength Ankle and Foot Manual Muscle Testing Right Comments 5/5 in all ms groups Left Comments 5/5 in all ms groups PT-OP-Q Treatments Start: 07/05/23 16:16 Freq: Status: Active Protocol: Document 08/02/23 09:10 LRN (Rec: 08/02/23 10:15 LRN [id number]) Therapeutic Exercises Supine Exercises hamstring stretch Supine Exercise Name from hooklying post manual therapy Side bilateral Reps/Minutes 60 seconds right, then sitting (see sitting ex) Miky stretch Supine Exercise Name Hip flexor stretch Side bilateral Equipment Used off side of table Reps/Minutes 90 sec X 2 left LE X 1 right LE Comments Cuing for PPT and opp KTC to prevent LBP, FIg 4 Supine Exercise Name HEP reviewed Side left Equipment Used pillow under head Reps/Minutes 30 x2 for recovery between sets Comments reviewed opp pelvis toward table awareness Sidelying Exercises hip abd Sidelying Exercise Name added to HEP Side bilateral Resistance top hand front ont able kickstand Reps/Minutes x10 each Comments Cued to move leg towards ceiling and not fwd, extra time needed for trainin Sitting Exercises SL long sit Sitting Exercise Name SL on plinth for long sit stretch Side bilateral Reps/Minutes 60SH each Comments Cuing to keep arch in back and to do ankle pumps after each 10 sec hold Therapeutic Activity Therapeutic Activity sit to stand Name sit to stand with hip hinge Reps/Minutes 10' Comments EXTra time taken for education and training for getting feet under her COG in standing before she tries to stand. Much verbal cues to start of flexed knees just past 90 deg, patient ed use of self tactile cues for hip hinge Neuro Re-Education Treatment Coordination Activities Deep breathing coordinating abdominal breathing Details Coordininating abdominal excursion with inhale and relaxation of abdomen Equipment self palp, PT palp of posterior LB, and use of mirror for feedback. Reps/Duration 21' Comments Positions of treatment: Sup, Mostly in sidelie & 4 pt. Pt able to somewhat coordinate breath with belly breathing after much training and pt self palp of abominals during breath (mainly tightening with inhale in order to relax with exhale). PT-OP-T Assessment and Plan Start: 07/05/23 16:16 Freq: Status: Active Protocol: Document 08/02/23 09:10 LRN (Rec: 08/02/23 10:15 LRN [id number]) Physical Therapy Assessment Goals Three Impairment Decreased function per TAL score of 30/100 (20-39% impaired, score 20-). Impairment TAL score of 30/100 (20-39% impaired, score 20-39). Short Term Goal (STG) Improve core/hip/pelvic stability and strength with pt able to wash dishes > 10 minutes to finish dishes without back pain. STG Duration 4 wks-08/10/23 Assisted Goal (LTG) Pt is able to vacuum with proper body mechanics without LBP/R hip pain, TAL score 1-19 (1-19% impaired). LTG Duration 8 wks-09/04/23 Two Impairment Decreased core/hip mobility Impairment Pain with moving around in bed . Short Term Goal (STG) Pt will be educated in self soft tissue mob to hips, abdomen and educated in pain management techniques. 07/19/23: Pt educated in self manual MFR to L abdominal upper quadrant. 07/23/23: self STM L TFL decreased anterior hip tension . STG Duration 4 wks-08/10/23 progressed (need mobs of hips and pn mgmt educ) Sample Maker Hand Goal (LTG) Pt will improve hip mobility to be able to move around in bed without pain. 07/31/2023 Observed patient perform log roll with good tech no grimacing during session LTG Duration 8 wks-09/04/23 One Impairment Pt lacks appropriate self care HEP. Short Term Goal (STG) Pt will be educated in log roll transfers, proper body mechanics for ADLs, proper sitting/standing posture. 07/12/23: Pt educated in log roll technique for transfers in/out of bed and for hip hinging with sit<>stand. 07/19/23: Pt educated in ex to promote proper sit/stand posture. 07/23/23: ed for continued seated and standing posture, use wall and added TB resisted shld ER, improved self corrections. 07/25/23: continued ed stand/sit posture. STG Duration 2 wks-07/27/23 progressed (need body mech ADLs, ed posture) Assisted Goal (LTG) Pt will be independent in an effective self care HEP for LB /abdomen/hip mobility and LB/ core/hip strengthening, L/S, and shoulder/scapular stabilization. 07/12/23: HEP: R>L Hip ER stretch (Fig 4), Piriformis stretch, and lateral hip stretch. Gluteal L>R KTC stretch 07/19/23: HEP I/S: Sup/stand T/S ext and 07/23/23: added postural TB #1 to shld ER. 07/25/23: added side hip abd AROM. LTG Duration 10/02/23 progressed 07/25/23 Assessment Summary Assessment Pt with soft tissue dysfunction of spine & abdomen , resulting in LBP and vazquez ASIS pain with palpation, probably associated with her descending colon resection. Pt needed much coordination training for hip hinging with sit<>stand transfers to start and was able to perform with much greater ease afterwards. Deep breathing, abdominal breathing is extremely difficult due to not being able to relax abdominals on command for excursion during breath. Hamstrings are very tight and too difficult to hold stretch in supine; better tolerated in long sit with postural cuing. Not able to do posture education today due to extended time taken on training for deep breathing. Physical Therapy Plan Frequency and Duration Frequency of Treatment 2x/Week Duration of treatment (weeks) 12 Plan of Care Start Date 07/10/23 Plan of Care End Date 10/02/23 Next Visit Focus/Plan Next Note Type Treatment Note Next Visit Plan Next: Review HEP: hip stretching (hamstring long sit ) PRN. *Show posture/pounds image for alignment and educ body mech ADLs (STG 1). Educ: Pain management - RICE, discuss use of hot pack/ex use (STG 2) Cont manual therapy to improve abdominal/LB mobility. POC: Manual therapy & exer to improve LB/abdomen/hip mobility and LB/core/hip strengthening for C/S, L/S, hips and shoulder/scapular stabilization, HEP, Modalities as needed for pain relief.
--- NOTE | 2023-08-08 13:42 | PT.OTN ---
Current Diagnoses Other chronic pain (08/08/23) Low back pain, unspecified (08/08/23) Physical Therapy Treatment Note PT-OP-A Visit Information Start: 07/05/23 16:16 Freq: Status: Active Protocol: Document 08/08/23 13:02 SP (Rec: 08/08/23 13:48 SP [id number]) Out-Patient Physical Therapy Visit Information Visit Information Visit Type Treatment Note Visit Start Time 13:02 Visit Stop Time 13:42 Visit Number 9 Number of COOLER SERVICER Visits 1 Evaluation Information Evaluation Date 07/10/23 Precautions Precautions Colon CA with resection 2018, back/neck pain history, HBP controlled by meds PT-OP-B Current Condition Start: 07/05/23 16:16 Freq: Status: Active Protocol: Document 07/10/23 13:48 LRN (Rec: 07/10/23 14:33 LRN [id number]) Current Condition History of Current Condition Onset Date 05/2023 Current Complaints Sciatic pain in rashawn hips, sharp stabbing. History of Current Condition Last week saw Cancer MD and is scheduled 07/20/[address] scan of pelvis and MRI of back . Has pain in L ASIS all the time that is dull achy, but with pressure pain is sharp. States that is the location of the colon resection incision (10 removal of descending colon for cancer removal, 2019 ). Developmental History Developmental History Week before Xmas was helping to decorate the [employer] ( helping little kids making snowflakes & was leaning over a lot), next day in kitchen twisted and had sharp stabbing pain. Pain decreased with rest and Advil & Alleve. A week later was sitting wrong on high bar stool (@ kitchen counter) had return of sharp pain return and had to use walker and raised toilet seat for a couple of days. R ASIS pain onset within the past 2 weeks. PMH: Per intake form: Mild high BP controlled by meds, TMJ pain, Neck pain from computer work. Treatment Goals Patient/Caregiver Goals PT goal: Finish washing dishes without onset of back pain. Have a ex program to improve hip mobility to move around in bed without pain. Vacuuming with modified posturing. Current Functional Impairments (Reported) Functional Limitations- ADL's Not able to complete washing dishes unless she takes a break, because of sharp pain. Able to last 10 minutes. Personal Factors Other Personal Factors That May Effect Colon CA 2019 w/resection of Therapy/Recovery descending colon. PT-OP-C Subjective Start: 07/05/23 16:16 Freq: Status: Active Protocol: Document 08/08/23 13:02 SP (Rec: 08/08/23 13:48 SP [id number]) OP-PT Subjective Patient Comments Patient Comments Pt reports didnt perform STS and breathing HEP since last tx. She said woke up and L hip hurting, not sure what did. Her PET scans came out ok, blob in middle continue to assess more testing MRI LS, October. PT-OP-H Neuro Start: 07/05/23 16:16 Freq: Status: Active Protocol: Document 07/12/23 13:47 LRN (Rec: 07/12/23 17:29 LRN [id number]) Sensation Evaluation Gross Sensation Gross Sensation WNL Deep Tendon Reflex & Clonus Assessment Deep Tendon Reflex Bilateral Achilles Deep Tendon Reflex 3+ Normal But Brisk Bilateral Patellar Deep Tendon Reflex 3+ Normal But Brisk PT-OP-J Posture/Palpation/Skin Start: 07/05/23 16:16 Freq: Status: Active Protocol: Document 07/10/23 13:48 LRN (Rec: 07/10/23 14:33 LRN [id number]) Posture Evaluation Position Standing Head/C-Spine Posture Forward Head T-Spine Posture Increased Kyphosis L-Spine Posture Decreased Lordosis Shoulder Posture (R) Elevated Pelvis Posture (R) PSIS Posterior,(L) PSIS Inferior,(R) ASIS Inferior Weight Distribution Balanced Knee Posture (L) Genu Valgus,(R) Genu Valgus Comments Posture Comments L innominate is posterly rotated and inflared. Palpation Assessment Location ASIS' Palpation Location Rashawn ASIS, L>R Palpation Findings Tenderness Low Back Palpation Findings Tenderness PT-OP-K Range of Motion Start: 07/05/23 16:16 Freq: Status: Active Protocol: Document 07/10/23 13:48 LRN (Rec: 07/10/23 14:33 LRN [id number]) Lumbar Spine Range of Motion Lumbar Spine Active Degrees Testing Position Standing Flexion 50 Extension 7 Rotation Left 10 Rotation Right 10 Lateral Flexion Left 8 Lateral Flexion Right 8 ROM Limitations Pain Comments Flex, rot & L SB is painful. Hip Goniometric Range of Motion Hip Right Passive Testing Position Supine Internal Rotation 20 External Rotation 45 Left Passive Testing Position Supine Internal Rotation 20 External Rotation 40 PT-OP-L Special Tests Start: 07/05/23 16:16 Freq: Status: Active Protocol: Document 07/10/23 13:48 LRN (Rec: 07/10/23 14:33 LRN [id number]) Special Tests Lumbar Spine Special Tests Miky Test Results + bilaterally Comments Mild hip flexor tightnesss Prone Press Up Test Results - Manual Traction Test Results - Straight Leg Raise Test Results + at 45 deg's left, + 60 right Comments L: lat hip pain, R: gastroc pain Slump Test Results - bilaterally Vertical Spine Loading Test Results - PT-OP-M Strength Start: 07/05/23 16:16 Freq: Status: Active Protocol: Document 07/12/23 13:47 LRN (Rec: 07/12/23 17:31 LRN [id number]) Hip Strength Hip Manual Muscle Testing Right Flexion (L2) 5 Normal External Rotation 3+ Fair+ Internal Rotation 5 Normal Left Flexion (L2) 5 Normal External Rotation 3 Fair Internal Rotation 5 Normal Knee Strength Knee Manual Muscle Testing Right Flexion (S2) 4+ Good+ Extension (L3) 5 Normal Left Comments 5/5 in all ms groups Ankle/Foot Strength Ankle and Foot Manual Muscle Testing Right Comments 5/5 in all ms groups Left Comments 5/5 in all ms groups PT-OP-Q Treatments Start: 07/05/23 16:16 Freq: Status: Active Protocol: Document 08/08/23 13:02 SP (Rec: 08/08/23 13:48 SP [id number]) Therapeutic Exercises Supine Exercises Miky stretch Supine Exercise Name Hip flexor stretch Side bilateral Equipment Used off side of table Reps/Minutes 90 sec X 2 left LE X 1 right LE Comments Cuing for PPT and opp KTC to prevent LBP, FIg 4 Supine Exercise Name HEP reviewed Side left Equipment Used pillow under head Reps/Minutes 60 sec Comments reviewed opp pelvis toward table awareness Sidelying Exercises hip abd Sidelying Exercise Name reviewed HEP Side bilateral Resistance top hand front ont able kickstand Reps/Minutes x10 each Comments cued stacked alignement on side, not see LE, post greater trochan mus tire Sitting Exercises SL long sit Sitting Exercise Name SL on plinth for long sit distalHS/Prox gastroc stretch Side bilateral Reps/Minutes 60SH each Comments Cuing to keep arch in back and to do ankle pumps after each 10 sec hold Therapeutic Activity Therapeutic Activity sit to stand Name sit to stand with hip hinge Reps/Minutes multiple reps Comments EXTra time taken for education and training for gregorio cárdenas, feet under her COG in standing before she tries to stand. Much verbal cues to start hip hinge trunk flexion andflexed knees carry rest of level to seat. Flops last 1 mesh 18 chair. body mechanics Name laundry basket standing/ stairs Reps/Minutes crate + 10 lbs Comments -log roll -STS from chair/slow descend sit -hip hinge pickers material handlers from floor -carrying up 6-8 steps -Cues for straight back/head neutral, hip hinge, lift legs. Manual Therapy Treatment Soft Tissue Mobilization STM to piriformis Body Location left gluteal /piriformis area Mobilization Type Cross-Friction,Rolling, Sustained Pressure,Other Intensity/Depth Moderate Comments sensitive to pressure glut med & max, pirif, improved MWM clamshell L hip Body Location L TFL Mobilization Type Strumming,Sustained Pressure, Other Comments strumming and MWM long axis LE IR/ ER AROM Manual Traction LLE Details long axis leg pull Body Position Supine Reps/Duration 30 x2 Comments good feedback stretch in R hip PT-OP-T Assessment and Plan Start: 07/05/23 16:16 Freq: Status: Active Protocol: Document 08/08/23 13:02 SP (Rec: 08/08/23 13:48 SP [id number]) Physical Therapy Assessment Goals Three Impairment Decreased function per TAL score of 30/100 (20-39% impaired, score 20-). Impairment TAL score of 30/100 (20-39% impaired, score 20-39). Short Term Goal (STG) Improve core/hip/pelvic stability and strength with pt able to wash dishes > 10 minutes to finish dishes without back pain. STG Duration 4 wks-08/10/23 Nursing Project Coordinator Goal (LTG) Pt is able to vacuum with proper body mechanics without LBP/R hip pain, TAL score 1-19 (1-19% impaired). LTG Duration 8 wks-09/04/23 Two Impairment Decreased core/hip mobility Impairment Pain with moving around in bed . Short Term Goal (STG) Pt will be educated in self soft tissue mob to hips, abdomen and educated in pain management techniques. 07/19/23: Pt educated in self manual MFR to L abdominal upper quadrant. 07/23/23: self STM L TFL decreased anterior hip tension . STG Duration 4 wks-08/10/23 progressed (need mobs of hips and pn mgmt educ) Mcfp Goal (LTG) Pt will improve hip mobility to be able to move around in bed without pain. 07/31/2023 Observed patient perform log roll with good tech no grimacing during session 08/08/23: GOAL METpt ableto bridge and good log roll technique to move around in, sup<> sit in bed. LTG Duration 8 wks-09/04/23 G OAL MET One Impairment Pt lacks appropriate self care HEP. Short Term Goal (STG) Pt will be educated in log roll transfers, proper body mechanics for ADLs, proper sitting/standing posture. 07/12/23: Pt educated in log roll technique for transfers in/out of bed and for hip hinging with sit<>stand. 07/19/23: Pt educated in ex to promote proper sit/stand posture. 07/23/23: ed for continued seated and standing posture, use wall and added TB resisted shld ER, improved self corrections. 07/25/23: continued ed stand/sit posture. 08/08/23: coontinued ed side sleeping use pillows betwn BLEs and behind back, then body mechanics log roll, STS and hip hinge fwd pickers material handlers basket and walk up /down stairs. STG Duration 2 wks-07/27/23 progressed (need body mech ADLs, ed posture) Mcfp Goal (LTG) Pt will be independent in an effective self care HEP for LB /abdomen/hip mobility and LB/ core/hip strengthening, L/S, and shoulder/scapular stabilization. 07/12/23: HEP: R>L Hip ER stretch (Fig 4), Piriformis stretch, and lateral hip stretch. Gluteal L>R KTC stretch 07/19/23: HEP I/S: Sup/stand T/S ext and 07/23/23: added postural TB #1 to shld ER. 07/25/23: added side hip abd AROM. LTG Duration 10/02/23 progressed 07/25/23 Progress Towards Goals Progress Towards Goals Progressing Toward Goals Progress Comments MET LTG #2 Assessment Summary Assessment Pt reports still but less/ little soreness over L TFL but less tension post manual and stretching. Painfree during ther ex, cues and education as needed for postural and trunk alignment for body mechanics lifting/carrying basket from floor and stair mgt. Pt good demonstration spinal and LE mobilty alignment during bed mobility. Physical Therapy Plan Frequency and Duration Frequency of Treatment 2x/Week Duration of treatment (weeks) 12 Plan of Care Start Date 07/10/23 Plan of Care End Date 10/02/23 Therapeutic Interventions Therapeutic Interventions Home Exercise Program,Joint Mobilizations,Manual Therapy, Neuromuscular Re-education, Self-Care/Home Management,Soft Tissue Mobilization, Therapeutic Activities, Therapeutic Exercises Modalities Cold Pack/Ice Massage,Hot Packs Next Visit Focus/Plan Next Note Type Treatment Note Next Visit Plan Review HEP: Continue review LS ext neutral during hip stretching (hamstring long sit ) PRN. *Show posture/pounds image for alignment and educ body mech ADLs (STG 1). Educ: Pain management - RICE, discuss use of hot pack/ex use (STG 2) Cont manual therapy to improve abdominal/LB mobility. POC: Manual therapy & exer to improve LB/abdomen/hip mobility and LB/core/hip strengthening for C/S, L/S, hips and shoulder/scapular stabilization, HEP, Modalities as needed for pain relief.
--- NOTE | 2023-08-10 08:59 | PT.OTN ---
Current Diagnoses Other chronic pain (08/10/23) Low back pain, unspecified (08/10/23) Physical Therapy Treatment Note PT-OP-A Visit Information Start: 07/05/23 16:16 Freq: Status: Active Protocol: Document 08/10/23 08:17 SP (Rec: 08/10/23 09:05 SP [id number]) Out-Patient Physical Therapy Visit Information Visit Information Visit Type Treatment Note Visit Note PN next tx Visit Start Time 08:17 Visit Stop Time 08:59 Visit Number 10 Number of SCIENTIFIC DATABASE CURATOR Visits 2 Evaluation Information Evaluation Date 07/10/23 Precautions Precautions Colon CA with resection 2018, back/neck pain history, HBP controlled by meds PT-OP-B Current Condition Start: 07/05/23 16:16 Freq: Status: Active Protocol: Document 07/10/23 13:48 LRN (Rec: 07/10/23 14:33 LRN [id number]) Current Condition History of Current Condition Onset Date 05/2023 Current Complaints Sciatic pain in rashawn hips, sharp stabbing. History of Current Condition Last week saw Cancer MD and is scheduled 07/20/[address] scan of pelvis and MRI of back . Has pain in L ASIS all the time that is dull achy, but with pressure pain is sharp. States that is the location of the colon resection incision (10 removal of descending colon for cancer removal, 2019 ). Developmental History Developmental History Week before Xmas was helping to decorate the [employer] ( helping little kids making snowflakes & was leaning over a lot), next day in kitchen twisted and had sharp stabbing pain. Pain decreased with rest and Advil & Alleve. A week later was sitting wrong on high bar stool (@ kitchen counter) had return of sharp pain return and had to use walker and raised toilet seat for a couple of days. R ASIS pain onset within the past 2 weeks. PMH: Per intake form: Mild high BP controlled by meds, TMJ pain, Neck pain from computer work. Treatment Goals Patient/Caregiver Goals PT goal: Finish washing dishes without onset of back pain. Have a ex program to improve hip mobility to move around in bed without pain. Vacuuming with modified posturing. Current Functional Impairments (Reported) Functional Limitations- ADL's Not able to complete washing dishes unless she takes a break, because of sharp pain. Able to last 10 minutes. Personal Factors Other Personal Factors That May Effect Colon CA 2019 w/resection of Therapy/Recovery descending colon. PT-OP-C Subjective Start: 07/05/23 16:16 Freq: Status: Active Protocol: Document 08/10/23 08:17 SP (Rec: 08/10/23 09:05 SP [id number]) OP-PT Subjective Patient Comments Patient Comments Pt reports she was gardening small pots on elevated table and didn't last long before looses energy and back and L starts to hurt. PT-OP-H Neuro Start: 07/05/23 16:16 Freq: Status: Active Protocol: Document 07/12/23 13:47 LRN (Rec: 07/12/23 17:29 LRN [id number]) Sensation Evaluation Gross Sensation Gross Sensation WNL Deep Tendon Reflex & Clonus Assessment Deep Tendon Reflex Bilateral Achilles Deep Tendon Reflex 3+ Normal But Brisk Bilateral Patellar Deep Tendon Reflex 3+ Normal But Brisk PT-OP-J Posture/Palpation/Skin Start: 07/05/23 16:16 Freq: Status: Active Protocol: Document 07/10/23 13:48 LRN (Rec: 07/10/23 14:33 LRN [id number]) Posture Evaluation Position Standing Head/C-Spine Posture Forward Head T-Spine Posture Increased Kyphosis L-Spine Posture Decreased Lordosis Shoulder Posture (R) Elevated Pelvis Posture (R) PSIS Posterior,(L) PSIS Inferior,(R) ASIS Inferior Weight Distribution Balanced Knee Posture (L) Genu Valgus,(R) Genu Valgus Comments Posture Comments L innominate is posterly rotated and inflared. Palpation Assessment Location ASIS' Palpation Location Rashawn ASIS, L>R Palpation Findings Tenderness Low Back Palpation Findings Tenderness PT-OP-K Range of Motion Start: 07/05/23 16:16 Freq: Status: Active Protocol: Document 07/10/23 13:48 LRN (Rec: 07/10/23 14:33 LRN [id number]) Lumbar Spine Range of Motion Lumbar Spine Active Degrees Testing Position Standing Flexion 50 Extension 7 Rotation Left 10 Rotation Right 10 Lateral Flexion Left 8 Lateral Flexion Right 8 ROM Limitations Pain Comments Flex, rot & L SB is painful. Hip Goniometric Range of Motion Hip Right Passive Testing Position Supine Internal Rotation 20 External Rotation 45 Left Passive Testing Position Supine Internal Rotation 20 External Rotation 40 PT-OP-L Special Tests Start: 07/05/23 16:16 Freq: Status: Active Protocol: Document 07/10/23 13:48 LRN (Rec: 07/10/23 14:33 LRN [id number]) Special Tests Lumbar Spine Special Tests Miyk Test Results + bilaterally Comments Mild hip flexor tightnesss Prone Press Up Test Results - Manual Traction Test Results - Straight Leg Raise Test Results + at 45 deg's left, + 60 right Comments L: lat hip pain, R: gastroc pain Slump Test Results - bilaterally Vertical Spine Loading Test Results - PT-OP-M Strength Start: 07/05/23 16:16 Freq: Status: Active Protocol: Document 07/12/23 13:47 LRN (Rec: 07/12/23 17:31 LRN [id number]) Hip Strength Hip Manual Muscle Testing Right Flexion (L2) 5 Normal External Rotation 3+ Fair+ Internal Rotation 5 Normal Left Flexion (L2) 5 Normal External Rotation 3 Fair Internal Rotation 5 Normal Knee Strength Knee Manual Muscle Testing Right Flexion (S2) 4+ Good+ Extension (L3) 5 Normal Left Comments 5/5 in all ms groups Ankle/Foot Strength Ankle and Foot Manual Muscle Testing Right Comments 5/5 in all ms groups Left Comments 5/5 in all ms groups PT-OP-Q Treatments Start: 07/05/23 16:16 Freq: Status: Active Protocol: Document 08/10/23 08:17 SP (Rec: 08/10/23 09:05 SP [id number]) Therapeutic Exercises Supine Exercises TA sequencial august Supine Exercise Name added to HEP Side bilateral Reps/Minutes 5 reps leading with eachLE Comments cued TA draw in, slow 2nd LE elevate no LB arch/momentum- improved pnfree Miky stretch Supine Exercise Name Hip flexor stretch Side bilateral Equipment Used off side of table Reps/Minutes 90 sec X 2 left LE X 1 right LE Comments Cuing for PPT and opp KTC to prevent LBP, KTC stretch Supine Exercise Name opp side Miky stretch Side bilateral Reps/Minutes 30 Comments good stretch response Sidelying Exercises hip abd Sidelying Exercise Name reviewed HEP Side bilateral Resistance top hand front ont able kickstand Reps/Minutes 2x10 each Comments impro stacked alignment on side, not see LE, post greater trochan mus tire Standing Exercises Self STMs Standing Exercise Name reviewed self STMs: L TFL Equipment Used ball wall Reps/Minutes 1 min Comments good feedback response resisted Shld ext Standing Exercise Name added toHEP Resistance Tb #3 green Reps/Minutes 2x10 Comments cued postural alignment, CS ext/nod tuck, scap set wall posture Standing Exercise Name TA arms anatomical position palms fwd Resistance added toHEP Reps/Minutes 10 SH x5 reps Comments good core, inter scap and core engage, Self-Care/Home Management Treatment Education Patient Education Body Mechanics,Home Exercise Program Other Education ed wall sit, stand posture gardening chin tuck, scap engage and wt shift between BLEs. Use of pillow between BLEs sleeping for spinal alignment. Added resisted shld ext and wall posture Ed review self STMs: TFL ball wall PT-OP-T Assessment and Plan Start: 07/05/23 16:16 Freq: Status: Active Protocol: Document 08/10/23 08:17 SP (Rec: 08/10/23 09:05 SP [id number]) Physical Therapy Assessment Goals Three Impairment Decreased function per TAL score of 30/100 (20-39% impaired, score 20-). Impairment TAL score of 30/100 (20-39% impaired, score 20-39). Short Term Goal (STG) Improve core/hip/pelvic stability and strength with pt able to wash dishes > 10 minutes to finish dishes without back pain. STG Duration 4 wks-08/10/23 [facility] Goal (LTG) Pt is able to vacuum with proper body mechanics without LBP/R hip pain, TAL score 1-19 (1-19% impaired). LTG Duration 8 wks-09/04/23 Two Impairment Decreased core/hip mobility Impairment Pain with moving around in bed . Short Term Goal (STG) Pt will be educated in self soft tissue mob to hips, abdomen and educated in pain management techniques. 07/19/23: Pt educated in self manual MFR to L abdominal upper quadrant. 07/23/23: self STM L TFL decreased anterior hip tension . STG Duration 4 wks-08/10/23 progressed (need mobs of hips and pn mgmt educ) [facility] Goal (LTG) Pt will improve hip mobility to be able to move around in bed without pain. 07/31/2023 Observed patient perform log roll with good tech no grimacing during session 08/08/23: GOAL METpt ableto bridge and good log roll technique to move around in, sup<> sit in bed. LTG Duration 8 wks-09/04/23 G OAL MET One Impairment Pt lacks appropriate self care HEP. Short Term Goal (STG) Pt will be educated in log roll transfers, proper body mechanics for ADLs, proper sitting/standing posture. 07/12/23: Pt educated in log roll technique for transfers in/out of bed and for hip hinging with sit<>stand. 07/19/23: Pt educated in ex to promote proper sit/stand posture. 07/23/23: ed for continued seated and standing posture, use wall and added TB resisted shld ER, improved self corrections. 07/25/23: continued ed stand/sit posture. 08/08/23: coontinued ed side sleeping use pillows betwn BLEs and behind back, then body mechanics log roll, STS and hip hinge fwd pick up man basket and walk up /down stairs. STG Duration 2 wks-07/27/23 progressed (need body mech ADLs, ed posture) [facility] Goal (LTG) Pt will be independent in an effective self care HEP for LB /abdomen/hip mobility and LB/ core/hip strengthening, L/S, and shoulder/scapular stabilization. 07/12/23: HEP: R>L Hip ER stretch (Fig 4), Piriformis stretch, and lateral hip stretch. Gluteal L>R KTC stretch 07/19/23: HEP I/S: Sup/stand T/S ext and 07/23/23: added postural TB #1 to shld ER. 07/25/23: added side hip abd AROM. 08/08/23: added wall posture holds and can add resisted shld ER and resisted shld ext, sequencial TA august. . LTG Duration 10/02/23 progressed 08/10/23 Assessment Summary Assessment Pt responded well to addition of wall posture hold with corrections carryover into resisted shld ext for HEP and mechanics for lifting reaching for gardening education during tx. Reminded of use pillows for spinal alignment. Pt reports back and L hip feel better leaving. Physical Therapy Plan Frequency and Duration Frequency of Treatment 2x/Week Duration of treatment (weeks) 12 Plan of Care Start Date 07/10/23 Plan of Care End Date 10/02/23 Therapeutic Interventions Therapeutic Interventions Home Exercise Program,Joint Mobilizations,Manual Therapy, Neuromuscular Re-education, Self-Care/Home Management,Soft Tissue Mobilization, Therapeutic Activities, Therapeutic Exercises Modalities Cold Pack/Ice Massage,Hot Packs Next Visit Focus/Plan Next Note Type Progress Note Next Visit Plan PN 11th visit next tx. Review HEP: added wall posture , core march and resisted shld ext for prpgression core/ LE strength. POC: Continue review LS ext neutral during hip stretching (hamstring long sit) PRN. * Show posture/pounds image for alignment and educ body mech ADLs (STG 1). Educ: Pain management - RICE, discuss use of hot pack/ex use (STG 2) Cont manual therapy to improve abdominal/LB mobility. POC: Manual therapy & exer to improve LB/abdomen/hip mobility and LB/core/hip strengthening for C/S, L/S, hips and shoulder/scapular stabilization, HEP, Modalities as needed for pain relief.
--- NOTE | 2023-08-14 16:46 | PT.OTN ---
Current Diagnoses Other chronic pain (08/14/23) Low back pain, unspecified (08/14/23) Physical Therapy Treatment Note PT-OP-A Visit Information Start: 07/05/23 16:16 Freq: Status: Active Protocol: Document 08/14/23 09:04 LRN (Rec: 08/14/23 09:47 LRN [id number]) Out-Patient Physical Therapy Visit Information Visit Information Visit Type Progress Note Visit Start Time 09:04 Visit Stop Time 09:42 Visit Number 11 Evaluation Information Evaluation Date 07/10/23 Precautions Precautions Colon CA with resection 2018, back/neck pain history, HBP controlled by meds. PT-OP-B Current Condition Start: 07/05/23 16:16 Freq: Status: Active Protocol: Document 07/10/23 13:48 LRN (Rec: 07/10/23 14:33 LRN [id number]) Current Condition History of Current Condition Onset Date 05/2023 Current Complaints Sciatic pain in rashawn hips, sharp stabbing. History of Current Condition Last week saw Cancer MD and is scheduled 07/20/[address] scan of pelvis and MRI of back . Has pain in L ASIS all the time that is dull achy, but with pressure pain is sharp. States that is the location of the colon resection incision (10 removal of descending colon for cancer removal, 2019 ). Developmental History Developmental History Week before Xmas was helping to decorate the [employer] ( helping little kids making snowflakes & was leaning over a lot), next day in kitchen twisted and had sharp stabbing pain. Pain decreased with rest and Advil & Alleve. A week later was sitting wrong on high bar stool (@ kitchen counter) had return of sharp pain return and had to use walker and raised toilet seat for a couple of days. R ASIS pain onset within the past 2 weeks. PMH: Per intake form: Mild high BP controlled by meds, TMJ pain, Neck pain from computer work. Treatment Goals Patient/Caregiver Goals PT goal: Finish washing dishes without onset of back pain. Have a ex program to improve hip mobility to move around in bed without pain. Vacuuming with modified posturing. Current Functional Impairments (Reported) Functional Limitations- ADL's Not able to complete washing dishes unless she takes a break, because of sharp pain. Able to last 10 minutes. Personal Factors Other Personal Factors That May Effect Colon CA 2019 w/resection of Therapy/Recovery descending colon. PT-OP-C Subjective Start: 07/05/23 16:16 Freq: Status: Active Protocol: Document 08/14/23 09:04 LRN (Rec: 08/14/23 09:47 LRN [id number]) OP-PT Subjective Patient Comments Patient Comments States she hurt her neck doing the wall posture ex w/o a support behind her neck. Can go up/down stairs with use of handrail without pain. Patient Questionnaires Oswestry Low Back Index Oswestry Score 14/100 Oswestry Impairment 1 to 19% Impaired (Score 1-19) OP-PT Pain Assessment Location L ASIS Pain Location Details L ASIS Intensity 5 PT-OP-H Neuro Start: 07/05/23 16:16 Freq: Status: Active Protocol: Document 07/12/23 13:47 LRN (Rec: 07/12/23 17:29 LRN [id number]) Sensation Evaluation Gross Sensation Gross Sensation WNL Deep Tendon Reflex & Clonus Assessment Deep Tendon Reflex Bilateral Achilles Deep Tendon Reflex 3+ Normal But Brisk Bilateral Patellar Deep Tendon Reflex 3+ Normal But Brisk PT-OP-J Posture/Palpation/Skin Start: 07/05/23 16:16 Freq: Status: Active Protocol: Document 07/10/23 13:48 LRN (Rec: 07/10/23 14:33 LRN [id number]) Posture Evaluation Position Standing Head/C-Spine Posture Forward Head T-Spine Posture Increased Kyphosis L-Spine Posture Decreased Lordosis Shoulder Posture (R) Elevated Pelvis Posture (R) PSIS Posterior,(L) PSIS Inferior,(R) ASIS Inferior Weight Distribution Balanced Knee Posture (L) Genu Valgus,(R) Genu Valgus Comments Posture Comments L innominate is posterly rotated and inflared. Palpation Assessment Location ASIS' Palpation Location Rashawn ASIS, L>R Palpation Findings Tenderness Low Back Palpation Findings Tenderness PT-OP-K Range of Motion Start: 07/05/23 16:16 Freq: Status: Active Protocol: Document 08/14/23 09:04 LRN (Rec: 08/14/23 09:47 LRN [id number]) Hip Goniometric Range of Motion Hip Right Passive Testing Position Supine Internal Rotation 37 External Rotation 45 Left Passive Testing Position Supine Internal Rotation 35 External Rotation 45 PT-OP-L Special Tests Start: 07/05/23 16:16 Freq: Status: Active Protocol: Document 07/10/23 13:48 LRN (Rec: 07/10/23 14:33 LRN [id number]) Special Tests Lumbar Spine Special Tests Miky Test Results + bilaterally Comments Mild hip flexor tightnesss Prone Press Up Test Results - Manual Traction Test Results - Straight Leg Raise Test Results + at 45 deg's left, + 60 right Comments L: lat hip pain, R: gastroc pain Slump Test Results - bilaterally Vertical Spine Loading Test Results - PT-OP-M Strength Start: 07/05/23 16:16 Freq: Status: Active Protocol: Document 07/12/23 13:47 LRN (Rec: 07/12/23 17:31 LRN [id number]) Hip Strength Hip Manual Muscle Testing Right Flexion (L2) 5 Normal External Rotation 3+ Fair+ Internal Rotation 5 Normal Left Flexion (L2) 5 Normal External Rotation 3 Fair Internal Rotation 5 Normal Knee Strength Knee Manual Muscle Testing Right Flexion (S2) 4+ Good+ Extension (L3) 5 Normal Left Comments 5/5 in all ms groups Ankle/Foot Strength Ankle and Foot Manual Muscle Testing Right Comments 5/5 in all ms groups Left Comments 5/5 in all ms groups PT-OP-Q Treatments Start: 07/05/23 16:16 Freq: Status: Active Protocol: Document 08/14/23 09:04 LRN (Rec: 08/14/23 09:47 LRN [id number]) Therapeutic Exercises Supine Exercises Rashawn BKFO Supine Exercise Name Frog stretch Reps/Minutes 3' Comments Cued to keep pelvis level TA sequencial march Supine Exercise Name SEquential marching w/cues to breathe with ex. Side bilateral Reps/Minutes 5 reps leading with eachLE Comments cued TA draw in, slow 2nd LE elevate no LB arch/momentum- improved pnfree hamstring stretch Supine Exercise Name HS stretch/LE neural glide Side bilateral Reps/Minutes 5' (2x L, 1x R) Comments Extra time to determine best position of hold Miky stretch Supine Exercise Name Hip flexor stretch - reviewed Side bilateral Equipment Used off side of table Reps/Minutes 90 sec X 2 left LE X 1 right LE Comments Cuing for PPT and opp KTC to prevent LBP, FIg 4 Supine Exercise Name Fig 4 stretch Side bilateral Equipment Used pillow under head Reps/Minutes 60 sec x 2 Comments Extra time to prop pelvis to keep level, cued for hold time Lateral hip stretch Supine Exercise Name reviewed - less of a focus on this stretch Side bilateral Equipment Used pillow under head Reps/Minutes 30 x2 for recovery between sets Comments cued opp LE straight, keep hip toward table/not lumbar roll Piriformis stretch Supine Exercise Name reviewed - less of a focus on this stretch Side right Equipment Used pillow under head Reps/Minutes 30 x2 for recovery between sets Comments Both hips tight KTC stretch Supine Exercise Name opp side Miky stretch with glut stretch Side bilateral Reps/Minutes 4' Comments R side limiting stretch due to groin pain PT-OP-T Assessment and Plan Start: 07/05/23 16:16 Freq: Status: Active Protocol: Document 08/14/23 09:04 LRN (Rec: 08/14/23 09:47 LRN [id number]) Physical Therapy Assessment Rehab Potential Rehabilitation Potential Good Evaluation Complexity Number of Personal Factors/Comorbidities 1-2 Number of Body Systems Impaired 4 or More Clinical Presentation at Evaluation Evolving Impairments Impairments Activity Tolerance,Pain, Posture,ROM,Soft Tissue Mobility,Strength,Transfers Goals Three Impairment Decreased function per TAL score of 30/100 (20-39% impaired, score 20-). Impairment TAL score of 30/100 (20-39% impaired, score 20-39). Short Term Goal (STG) Improve core/hip/pelvic stability and strength with pt able to wash dishes > 10 minutes to finish dishes without back pain. 08/14/23: Having back weariness with doing dishes. if pain, uses heat pad that helps. TAL = 15/100 (1-19% impaired, score 1-19). STG Duration 4 wks-08/10/23 progressing 08/14/23 Extension Work Instructor Goal (LTG) Pt is able to vacuum with proper body mechanics without LBP/R hip pain, TAL score 1-19 (1-19% impaired). 08/14/23: Able to vacuum with onset of LB/L hip pain (feels L hip pain won't ever go away ). LBP rated 1-2/10, not sharp anymore. TAL score is 14/100 (1-19% impaired). LTG Duration 8 wks-09/04/23 (08/14/23: MET GOAL) Two Impairment Decreased core/hip mobility Impairment Pain with moving around in bed . Short Term Goal (STG) Pt will be educated in self soft tissue mob to hips, abdomen and educated in pain management techniques. 07/19/23: Pt educated in self manual MFR to L abdominal upper quadrant. 07/23/23: self STM L TFL decreased anterior hip tension . STG Duration 4 wks-08/10/23 progressed (need mobs of hips and pn mgmt educ) Shelter Goal (LTG) Pt will improve hip mobility to be able to move around in bed without pain. 07/31/2023 Observed patient perform log roll with good tech no grimacing during session 08/08/23: GOAL METpt ableto bridge and good log roll technique to move around in, sup<> sit in bed. LTG Duration 8 wks-09/04/23 GOAL MET One Impairment Pt lacks appropriate self care HEP. Short Term Goal (STG) Pt will be educated in log roll transfers, proper body mechanics for ADLs, proper sitting/standing posture. 07/12/23: Pt educated in log roll technique for transfers in/out of bed and for hip hinging with sit<>stand. 07/19/23: Pt educated in ex to promote proper sit/stand posture. 07/23/23: ed for continued seated and standing posture, use wall and added TB resisted shld ER, improved self corrections. 07/25/23: continued ed stand/sit posture. 08/08/23: coontinued ed side sleeping use pillows betwn BLEs and behind back, then body mechanics log roll, STS and hip hinge fwd machine operator picker basket and walk up /down stairs. STG Duration 2 wks-07/27/23 progressed (need body mech ADLs, ed posture) Shelter Goal (LTG) Pt will be independent in an effective self care HEP for LB /abdomen/hip mobility and LB/ core/hip strengthening, L/S, and shoulder/scapular stabilization. 07/12/23: HEP: R>L Hip ER stretch (Fig 4), Piriformis stretch, and lateral hip stretch. Gluteal L>R KTC stretch 07/19/23: HEP I/S: Sup/stand T/S ext and 07/23/23: added postural TB #1 to shld ER. 07/25/23: added side hip abd AROM. 08/08/23: added wall posture holds and can add resisted shld ER and resisted shld ext, sequencial TA march. . LTG Duration 10/02/23 progressed 08/10/23 Assessment Summary Assessment Pt is a 72 yo female presenting with soft tissue dysfunction of spine & abdomen , resulting in initially LBP and rashawn ASIS pain with palpation, possibly associated with her descending colon resection. Her LBP is decreased and no longer sharp in nature. She is now able to tolerate 10' of dishwashing and vacumming with LBP more associated to fatigue. Her hip mobility has become more symmetrical but ER is limited bilaterally. Pt will benefit from continued skilled physical therapy for core/LB strengthenining, and education in body mechanics for ADLs, self STM, and posture ed/ training and hip ER mobilization. Physical Therapy Plan Frequency and Duration Frequency of Treatment 2x/Week Duration of treatment (weeks) 12 Plan of Care Start Date 07/10/23 Plan of Care End Date 10/02/23 Therapeutic Interventions Therapeutic Interventions Home Exercise Program,Joint Mobilizations,Manual Therapy, Neuromuscular Re-education, Self-Care/Home Management,Soft Tissue Mobilization, Therapeutic Activities, Therapeutic Exercises Modalities Cold Pack/Ice Massage,Hot Packs Next Visit Focus/Plan Next Note Type Treatment Note Next Visit Plan Review HEP: added wall posture , core march and resisted shld ext for progression core/ LE strength. POC: Continue review LS ext neutral during hip stretching (hamstring long sit) PRN. * Show posture/pounds image for alignment and educ body mech ADLs (STG 1). Educ: Pain management - IRINEO, discuss use of hot pack/ex use (STG 2) Cont manual therapy to improve abdominal/LB mobility. POC: core/LB strengthenining, and education in body mechanics for ADLs, self STM, and posture ed/training and hip ER mobilization. Manual therapy & exer to improve LB/ abdomen/hip mobility and LB/ core/hip strengthening for C/S , L/S, hips and shoulder/ scapular stabilization, HEP, Modalities as needed for pain relief.
--- NOTE | 2023-08-17 10:30 | PT.OTN ---
Current Diagnoses Other chronic pain (08/17/23) Low back pain, unspecified (08/17/23) Physical Therapy Treatment Note PT-OP-A Visit Information Start: 07/05/23 16:16 Freq: Status: Active Protocol: Document 08/17/23 09:52 SP (Rec: 08/17/23 10:34 SP [id number]) Out-Patient Physical Therapy Visit Information Visit Information Visit Type Treatment Note Visit Start Time 09:52 Visit Stop Time 10:30 Visit Number 12 Number of [employer] Visits 1 Evaluation Information Evaluation Date 07/10/23 Precautions Precautions Colon CA with resection 2018, back/neck pain history, HBP controlled by meds. PT-OP-B Current Condition Start: 07/05/23 16:16 Freq: Status: Active Protocol: Document 07/10/23 13:48 LRN (Rec: 07/10/23 14:33 LRN [id number]) Current Condition History of Current Condition Onset Date 05/2023 Current Complaints Sciatic pain in rashawn hips, sharp stabbing. History of Current Condition Last week saw Cancer MD and is scheduled 07/20/[address] scan of pelvis and MRI of back . Has pain in L ASIS all the time that is dull achy, but with pressure pain is sharp. States that is the location of the colon resection incision (10 removal of descending colon for cancer removal, 2019 ). Developmental History Developmental History Week before Xmas was helping to decorate the [employer] ( helping little kids making snowflakes & was leaning over a lot), next day in kitchen twisted and had sharp stabbing pain. Pain decreased with rest and Advil & Alleve. A week later was sitting wrong on high bar stool (@ kitchen counter) had return of sharp pain return and had to use walker and raised toilet seat for a couple of days. R ASIS pain onset within the past 2 weeks. PMH: Per intake form: Mild high BP controlled by meds, TMJ pain, Neck pain from computer work. Treatment Goals Patient/Caregiver Goals PT goal: Finish washing dishes without onset of back pain. Have a ex program to improve hip mobility to move around in bed without pain. Vacuuming with modified posturing. Current Functional Impairments (Reported) Functional Limitations- ADL's Not able to complete washing dishes unless she takes a break, because of sharp pain. Able to last 10 minutes. Personal Factors Other Personal Factors That May Effect Colon CA 2019 w/resection of Therapy/Recovery descending colon. PT-OP-C Subjective Start: 07/05/23 16:16 Freq: Status: Active Protocol: Document 08/17/23 09:52 SP (Rec: 08/17/23 10:34 SP [id number]) OP-PT Subjective Patient Comments Patient Comments Pt reports core and ab sore end of day probably due to 3 other mtgs at [facility], [place] [facility] on zoom,etc. More attentive to TA walking down stairs. Compliant with HEP and doing well with them home. PT-OP-H Neuro Start: 07/05/23 16:16 Freq: Status: Active Protocol: Document 07/12/23 13:47 LRN (Rec: 07/12/23 17:29 LRN [id number]) Sensation Evaluation Gross Sensation Gross Sensation WNL Deep Tendon Reflex & Clonus Assessment Deep Tendon Reflex Bilateral Achilles Deep Tendon Reflex 3+ Normal But Brisk Bilateral Patellar Deep Tendon Reflex 3+ Normal But Brisk PT-OP-J Posture/Palpation/Skin Start: 07/05/23 16:16 Freq: Status: Active Protocol: Document 07/10/23 13:48 LRN (Rec: 07/10/23 14:33 LRN [id number]) Posture Evaluation Position Standing Head/C-Spine Posture Forward Head T-Spine Posture Increased Kyphosis L-Spine Posture Decreased Lordosis Shoulder Posture (R) Elevated Pelvis Posture (R) PSIS Posterior,(L) PSIS Inferior,(R) ASIS Inferior Weight Distribution Balanced Knee Posture (L) Genu Valgus,(R) Genu Valgus Comments Posture Comments L innominate is posterly rotated and inflared. Palpation Assessment Location ASIS' Palpation Location Rashawn ASIS, L>R Palpation Findings Tenderness Low Back Palpation Findings Tenderness PT-OP-K Range of Motion Start: 07/05/23 16:16 Freq: Status: Active Protocol: Document 08/14/23 09:04 LRN (Rec: 08/14/23 09:47 LRN [id number]) Hip Goniometric Range of Motion Hip Right Passive Testing Position Supine Internal Rotation 37 External Rotation 45 Left Passive Testing Position Supine Internal Rotation 35 External Rotation 45 PT-OP-L Special Tests Start: 07/05/23 16:16 Freq: Status: Active Protocol: Document 07/10/23 13:48 LRN (Rec: 07/10/23 14:33 LRN [id number]) Special Tests Lumbar Spine Special Tests Miky Test Results + bilaterally Comments Mild hip flexor tightnesss Prone Press Up Test Results - Manual Traction Test Results - Straight Leg Raise Test Results + at 45 deg's left, + 60 right Comments L: lat hip pain, R: gastroc pain Slump Test Results - bilaterally Vertical Spine Loading Test Results - PT-OP-M Strength Start: 07/05/23 16:16 Freq: Status: Active Protocol: Document 07/12/23 13:47 LRN (Rec: 07/12/23 17:31 LRN [id number]) Hip Strength Hip Manual Muscle Testing Right Flexion (L2) 5 Normal External Rotation 3+ Fair+ Internal Rotation 5 Normal Left Flexion (L2) 5 Normal External Rotation 3 Fair Internal Rotation 5 Normal Knee Strength Knee Manual Muscle Testing Right Flexion (S2) 4+ Good+ Extension (L3) 5 Normal Left Comments 5/5 in all ms groups Ankle/Foot Strength Ankle and Foot Manual Muscle Testing Right Comments 5/5 in all ms groups Left Comments 5/5 in all ms groups PT-OP-Q Treatments Start: 07/05/23 16:16 Freq: Status: Active Protocol: Document 08/17/23 09:52 SP (Rec: 08/17/23 10:34 SP [id number]) Therapeutic Exercises Supine Exercises Rashawn BKFO Supine Exercise Name Frog stretch (adductor stretch ) Side bilateral Reps/Minutes Held for 1.5 min Comments Cued to keep pelvis level, no let LB arch off table- pnfree reported TA sequencial march Supine Exercise Name SEquential marching w/cues count for breath 1, 2,3,4 Side bilateral Reps/Minutes 5 reps leading with each LE Comments cued TA draw in, slow 2nd LE elevate no LB arch/momentum- improved pnfree hamstring stretch Supine Exercise Name HS stretch/LE neural glide /c AP Side bilateral Equipment Used use towel behind thigh support , no strain on neck Reps/Minutes 2x L, 1x R- (10 AP) Comments Extra time to determine best position of hold FIg 4 Supine Exercise Name Fig 4 stretch Side bilateral Equipment Used pillow under head & folded towel under R hip level Reps/Minutes 60 sec x 2 Comments Good request folded towel A prop pelvis to keep level, cued ed hold time Lateral hip stretch Supine Exercise Name reviewed - less of a focus on this stretch Side bilateral Resistance can reach knee better Equipment Used pillow under head, use towel better pull ability Reps/Minutes 30 x2 for recovery between sets Comments cued foot over opp leg/tbl, then pull knee in that direction- good stretch Piriformis stretch Supine Exercise Name reviewed - less of a focus on this stretch Side right Equipment Used pillow under head Reps/Minutes 30 x2 for recovery between sets Comments good post hip stretch KTC stretch Supine Exercise Name opp side Miky stretch with glut stretch Side bilateral Reps/Minutes 30 hold x2 between core lat scoot activity Comments R less range but painfree 3/1 Standing Exercises resisted Shld ext Standing Exercise Name reviewed Resistance Tb #3 green Reps/Minutes x10, 2 SH Comments cued postural alignment, CS ext/nod tuck, scap set wall posture Standing Exercise Name TA arms anatomical position palms fwd Equipment Used vertical towel roll behind head/neck- little chin tuck Reps/Minutes 10 SH x5 reps Comments pelvis at wall, roll LB up, TS touching wall, neck neutral little tuck Therapeutic Activity Therapeutic Activity bed mob: core bridge lat scoot Name core strengthening- mechanics lat scoot Reps/Minutes 3 reps over back x2 sets- added to HEP Comments arms up front off table, cued level pelvis during lat lift scoot bridge technique PT-OP-T Assessment and Plan Start: 07/05/23 16:16 Freq: Status: Active Protocol: Document 08/17/23 09:52 SP (Rec: 08/17/23 10:34 SP [id number]) Physical Therapy Assessment Goals Three Impairment Decreased function per TAL score of 30/100 (20-39% impaired, score 20-). Impairment TAL score of 30/100 (20-39% impaired, score 20-39). Short Term Goal (STG) Improve core/hip/pelvic stability and strength with pt able to wash dishes > 10 minutes to finish dishes without back pain. 08/14/23: Having back weariness with doing dishes. if pain, uses heat pad that helps. TAL = 15/100 (1-19% impaired, score 1-19). STG Duration 4 wks-08/10/23 progressing 08/14/23 [facility] Goal (LTG) Pt is able to vacuum with proper body mechanics without LBP/R hip pain, TAL score 1-19 (1-19% impaired). 08/14/23: Able to vacuum with onset of LB/L hip pain (feels L hip pain won't ever go away ). LBP rated 1-2/10, not sharp anymore. TAL score is 14/100 (1-19% impaired). LTG Duration 8 wks-09/04/23 (08/14/23: MET GOAL) Two Impairment Decreased core/hip mobility Impairment Pain with moving around in bed . Short Term Goal (STG) Pt will be educated in self soft tissue mob to hips, abdomen and educated in pain management techniques. 07/19/23: Pt educated in self manual MFR to L abdominal upper quadrant. 07/23/23: self STM L TFL decreased anterior hip tension . STG Duration 4 wks-08/10/23 progressed (need mobs of hips and pn mgmt educ) Surgical Technologist Goal (LTG) Pt will improve hip mobility to be able to move around in bed without pain. 07/31/2023 Observed patient perform log roll with good tech no grimacing during session 08/08/23: GOAL METpt ableto bridge and good log roll technique to move around in, sup<> sit in bed. LTG Duration 8 wks-09/04/23 GOAL MET One Impairment Pt lacks appropriate self care HEP. Short Term Goal (STG) Pt will be educated in log roll transfers, proper body mechanics for ADLs, proper sitting/standing posture. 07/12/23: Pt educated in log roll technique for transfers in/out of bed and for hip hinging with sit<>stand. 07/19/23: Pt educated in ex to promote proper sit/stand posture. 07/23/23: ed for continued seated and standing posture, use wall and added TB resisted shld ER, improved self corrections. 07/25/23: continued ed stand/sit posture. 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 STG Duration 2 wks-07/27/23 progressed (need body mech ADLs, ed posture) Surgical Technologist Goal (LTG) Pt will be independent in an effective self care HEP for LB /abdomen/hip mobility and LB/ core/hip strengthening, L/S, and shoulder/scapular stabilization. 07/12/23: HEP: R>L Hip ER stretch (Fig 4), Piriformis stretch, and lateral hip stretch. Gluteal L>R KTC stretch 07/19/23: HEP I/S: Sup/stand T/S ext and 07/23/23: added postural TB #1 to shld ER. 07/25/23: added side hip abd AROM. 08/08/23: added wall posture holds and can add resisted shld ER and resisted shld ext, sequencial TA august. 08/17/23: added core bridge lat scoot TH Act for improve engagement functional mobility without need BUE support, pn free. LTG Duration 10/02/23 progressed 08/17/23 Assessment Summary Assessment Pt improved stretching HEP review. Pt required cuing slower pacing lift/lower contact no pain but tiring core for proper form TA sequencial august. Added functional bridge lateral scoot in bed for more funcitonal, ableto perform UEs off bed front without back pain able perform. Improved form and neck/back/ core alignment suport duirng wall posture with cues needed and carryover resisted shld ext. Painfree. Pt report core soreness but pleased with engagment useage throughout activity today. Physical Therapy Plan Frequency and Duration Frequency of Treatment 2x/Week Duration of treatment (weeks) 12 Plan of Care Start Date 07/10/23 Plan of Care End Date 10/02/23 Therapeutic Interventions Therapeutic Interventions Home Exercise Program,Joint Mobilizations,Manual Therapy, Neuromuscular Re-education, Self-Care/Home Management,Soft Tissue Mobilization, Therapeutic Activities, Therapeutic Exercises Modalities Cold Pack/Ice Massage,Hot Packs Next Visit Focus/Plan Next Note Type Treatment Note Next Visit Plan Review HEP: added wall posture , core march and resisted shld ext for progression core/ LE strength. POC: Continue review LS ext neutral during hip stretching (hamstring long sit) PRN. * Show posture/pounds image for alignment and educ body mech ADLs (STG 1). Educ: Pain management - RICE, discuss use of hot pack/ex use (STG 2) Cont manual therapy to improve abdominal/LB mobility. POC: core/LB strengthenining, and education in body mechanics for ADLs, self STM, and posture ed/training and hip ER mobilization. Manual therapy & exer to improve LB/ abdomen/hip mobility and LB/ core/hip strengthening for C/S , L/S, hips and shoulder/ scapular stabilization, HEP, Modalities as needed for pain relief.
--- NOTE | 2023-08-21 14:33 | PT.OTN ---
Current Diagnoses Other chronic pain (08/21/23) Low back pain, unspecified (08/21/23) Physical Therapy Treatment Note PT-OP-A Visit Information Start: 07/05/23 16:16 Freq: Status: Active Protocol: Document 08/21/23 13:48 SP (Rec: 08/21/23 14:37 SP [id number]) Out-Patient Physical Therapy Visit Information Visit Information Visit Type Treatment Note Visit Start Time 13:48 Visit Stop Time 14:33 Visit Number 13 Number of INSTALLERS MECHANICAL Visits 2 Evaluation Information Evaluation Date 07/10/23 Precautions Precautions Colon CA with resection 2018, back/neck pain history, HBP controlled by meds. PT-OP-B Current Condition Start: 07/05/23 16:16 Freq: Status: Active Protocol: Document 07/10/23 13:48 LRN (Rec: 07/10/23 14:33 LRN [id number]) Current Condition History of Current Condition Onset Date 05/2023 Current Complaints Sciatic pain in vazquez hips, sharp stabbing. History of Current Condition Last week saw Cancer MD and is scheduled 07/20/[address] scan of pelvis and MRI of back . Has pain in L ASIS all the time that is dull achy, but with pressure pain is sharp. States that is the location of the colon resection incision (10 removal of descending colon for cancer removal, 2019 ). Developmental History Developmental History Week before Xmas was helping to decorate the [employer] ( helping little kids making snowflakes & was leaning over a lot), next day in kitchen twisted and had sharp stabbing pain. Pain decreased with rest and Advil & Alleve. A week later was sitting wrong on high bar stool (@ kitchen counter) had return of sharp pain return and had to use walker and raised toilet seat for a couple of days. R ASIS pain onset within the past 2 weeks. PMH: Per intake form: Mild high BP controlled by meds, TMJ pain, Neck pain from computer work. Treatment Goals Patient/Caregiver Goals PT goal: Finish washing dishes without onset of back pain. Have a ex program to improve hip mobility to move around in bed without pain. Vacuuming with modified posturing. Current Functional Impairments (Reported) Functional Limitations- ADL's Not able to complete washing dishes unless she takes a break, because of sharp pain. Able to last 10 minutes. Personal Factors Other Personal Factors That May Effect Colon CA 2019 w/resection of Therapy/Recovery descending colon. PT-OP-C Subjective Start: 07/05/23 16:16 Freq: Status: Active Protocol: Document 08/21/23 13:48 SP (Rec: 08/21/23 14:37 SP [id number]) OP-PT Subjective Patient Comments Patient Comments Pt reports her L groing pinching feeling with lateral hip stretch so stopped. PT-OP-H Neuro Start: 07/05/23 16:16 Freq: Status: Active Protocol: Document 07/12/23 13:47 LRN (Rec: 07/12/23 17:29 LRN [id number]) Sensation Evaluation Gross Sensation Gross Sensation WNL Deep Tendon Reflex & Clonus Assessment Deep Tendon Reflex Bilateral Achilles Deep Tendon Reflex 3+ Normal But Brisk Bilateral Patellar Deep Tendon Reflex 3+ Normal But Brisk PT-OP-J Posture/Palpation/Skin Start: 07/05/23 16:16 Freq: Status: Active Protocol: Document 07/10/23 13:48 LRN (Rec: 07/10/23 14:33 LRN [id number]) Posture Evaluation Position Standing Head/C-Spine Posture Forward Head T-Spine Posture Increased Kyphosis L-Spine Posture Decreased Lordosis Shoulder Posture (R) Elevated Pelvis Posture (R) PSIS Posterior,(L) PSIS Inferior,(R) ASIS Inferior Weight Distribution Balanced Knee Posture (L) Genu Valgus,(R) Genu Valgus Comments Posture Comments L innominate is posterly rotated and inflared. Palpation Assessment Location ASIS' Palpation Location Vazquez ASIS, L>R Palpation Findings Tenderness Low Back Palpation Findings Tenderness PT-OP-K Range of Motion Start: 07/05/23 16:16 Freq: Status: Active Protocol: Document 08/14/23 09:04 LRN (Rec: 08/14/23 09:47 LRN [id number]) Hip Goniometric Range of Motion Hip Right Passive Testing Position Supine Internal Rotation 37 External Rotation 45 Left Passive Testing Position Supine Internal Rotation 35 External Rotation 45 PT-OP-L Special Tests Start: 07/05/23 16:16 Freq: Status: Active Protocol: Document 07/10/23 13:48 LRN (Rec: 07/10/23 14:33 LRN [id number]) Special Tests Lumbar Spine Special Tests Miky Test Results + bilaterally Comments Mild hip flexor tightnesss Prone Press Up Test Results - Manual Traction Test Results - Straight Leg Raise Test Results + at 45 deg's left, + 60 right Comments L: lat hip pain, R: gastroc pain Slump Test Results - bilaterally Vertical Spine Loading Test Results - PT-OP-M Strength Start: 07/05/23 16:16 Freq: Status: Active Protocol: Document 07/12/23 13:47 LRN (Rec: 07/12/23 17:31 LRN [id number]) Hip Strength Hip Manual Muscle Testing Right Flexion (L2) 5 Normal External Rotation 3+ Fair+ Internal Rotation 5 Normal Left Flexion (L2) 5 Normal External Rotation 3 Fair Internal Rotation 5 Normal Knee Strength Knee Manual Muscle Testing Right Flexion (S2) 4+ Good+ Extension (L3) 5 Normal Left Comments 5/5 in all ms groups Ankle/Foot Strength Ankle and Foot Manual Muscle Testing Right Comments 5/5 in all ms groups Left Comments 5/5 in all ms groups PT-OP-Q Treatments Start: 07/05/23 16:16 Freq: Status: Active Protocol: Document 08/21/23 13:48 SP (Rec: 08/21/23 14:37 SP [id number]) Therapeutic Exercises Supine Exercises resisted clamshell Supine Exercise Name added to HEP Side bilateral Resistance TB #2 Reps/Minutes 5 SH x10 Comments states TA and PPT neutral, some tension in ES but not bad TA sequencial march Supine Exercise Name SEquential marching w/cues count for breath 1, 2,3,4 Side bilateral Reps/Minutes 8 reps leading with each LE Comments improve TA draw in/slow 2nd LE elevate no LB arch/momentum- improved pnfree Miky stretch Supine Exercise Name Hip flexor stretch - reviewed Side bilateral Equipment Used off side of table Reps/Minutes 90 sec X 2 left LE X 1 right LE Comments Cuing for PPT and opp KTC to prevent LBP & ft off floor Sidelying Exercises hip abd Sidelying Exercise Name reviewed HEP Side bilateral Resistance top hand front ont able kickstand Reps/Minutes x15 each Comments impro stacked alignment on side, cued slower pacing better control/no momen Standing Exercises squat with hip hinge Standing Exercise Name Squat hover reviewed Side bilateral Resistance (add band next) Equipment Used hover chair 1 from 19 Reps/Minutes X10 Comments Verbal cues to hip hinge, abd and squat 3/4 to chair seat ( raised seat) Manual Therapy Treatment Soft Tissue Mobilization L hip Body Location L TFL, prox RF, Pirif, glut med distal Mobilization Type Strumming,Sustained Pressure, Other Body Position prone&supine Comments strumming supine hip flexor and STMs & PROM hip ER prone Contract relax increased range , no pain lat hip stretch PT-OP-T Assessment and Plan Start: 07/05/23 16:16 Freq: Status: Active Protocol: Document 08/21/23 13:48 SP (Rec: 08/21/23 14:37 SP [id number]) Physical Therapy Assessment Goals Three Impairment Decreased function per TAL score of 30/100 (20-39% impaired, score 20-). Impairment TAL score of 30/100 (20-39% impaired, score 20-39). Short Term Goal (STG) Improve core/hip/pelvic stability and strength with pt able to wash dishes > 10 minutes to finish dishes without back pain. 08/14/23: Having back weariness with doing dishes. if pain, uses heat pad that helps. TAL = 15/100 (1-19% impaired, score 1-19). 08/21/23: lasts about few min before back pain. Ed squat & pivot put dishes away. STG Duration 4 wks-08/10/23 progressing 08/14/23 [employer] Goal (LTG) Pt is able to vacuum with proper body mechanics without LBP/R hip pain, TAL score 1-19 (1-19% impaired). 08/14/23: Able to vacuum with onset of LB/L hip pain (feels L hip pain won't ever go away ). LBP rated 1-2/10, not sharp anymore. TAL score is 14/100 (1-19% impaired). LTG Duration 8 wks-09/04/23 (08/14/23: MET GOAL) Two Impairment Decreased core/hip mobility Impairment Pain with moving around in bed . Short Term Goal (STG) Pt will be educated in self soft tissue mob to hips, abdomen and educated in pain management techniques. 07/19/23: Pt educated in self manual MFR to L abdominal upper quadrant. 07/23/23: self STM L TFL decreased anterior hip tension . STG Duration 4 wks-08/10/23 progressed (need mobs of hips and pn mgmt educ) Snf Goal (LTG) Pt will improve hip mobility to be able to move around in bed without pain. 07/31/2023 Observed patient perform log roll with good tech no grimacing during session 08/08/23: GOAL METpt ableto bridge and good log roll technique to move around in, sup<> sit in bed. LTG Duration 8 wks-09/04/23 GOAL MET One Impairment Pt lacks appropriate self care HEP. Short Term Goal (STG) Pt will be educated in log roll transfers, proper body mechanics for ADLs, proper sitting/standing posture. 07/12/23: Pt educated in log roll technique for transfers in/out of bed and for hip hinging with sit<>stand. 07/19/23: Pt educated in ex to promote proper sit/stand posture. 07/23/23: ed for continued seated and standing posture, use wall and added TB resisted shld ER, improved self corrections. 07/25/23: continued ed stand/sit posture. 08/08/23: coontinued ed side sleeping use pillows betwn BLEs and behind back, then body mechanics log roll, STS and hip hinge fwd strip picker basket and walk up /down stairs. STG Duration 2 wks-07/27/23 progressed (need body mech ADLs, ed posture) [employer] Goal (LTG) Pt will be independent in an effective self care HEP for LB /abdomen/hip mobility and LB/ core/hip strengthening, L/S, and shoulder/scapular stabilization. 07/12/23: HEP: R>L Hip ER stretch (Fig 4), Piriformis stretch, and lateral hip stretch. Gluteal L>R KTC stretch 07/19/23: HEP I/S: Sup/stand T/S ext and 07/23/23: added postural TB #1 to shld ER. 07/25/23: added side hip abd AROM. 08/08/23: added wall posture holds and can add resisted shld ER and resisted shld ext, sequencial TA august. 08/17/23: added core bridge lat scoot TH Act for improve engagement functional mobility without need BUE support, pn free. 08/21/23: added LTG Duration 10/02/23 progressed 08/17/23 Assessment Summary Assessment Pt reported little sore over L TFL area and able perform L lat hip stretch and increase L hip ER post manual contract relax and STMs end tx. She stated muscle tiring after hip abd review and added resisted clamshell in hooklying, intension progress hip abd strength for sit stand normal surfaces without UE support with ease. She requires Physical Therapy Plan Frequency and Duration Frequency of Treatment 2x/Week Duration of treatment (weeks) 12 Plan of Care Start Date 07/10/23 Plan of Care End Date 10/02/23 Therapeutic Interventions Therapeutic Interventions Home Exercise Program,Joint Mobilizations,Manual Therapy, Neuromuscular Re-education, Self-Care/Home Management,Soft Tissue Mobilization, Therapeutic Activities, Therapeutic Exercises Modalities Cold Pack/Ice Massage,Hot Packs Next Visit Focus/Plan Next Note Type Treatment Note Next Visit Plan Review HEP: review STS progress 18, L hip ER. Check hip alignment, fine today . POC: Continue review LS ext neutral during hip stretching (hamstring long sit) PRN. * Show posture/pounds image for alignment and educ body mech ADLs (STG 1). Educ: Pain management - RICE, discuss use of hot pack/ex use (STG 2) Cont manual therapy to improve abdominal/LB mobility. POC: core/LB strengthenining, and education in body mechanics for ADLs, self STM, and posture ed/training and hip ER mobilization. Manual therapy & exer to improve LB/ abdomen/hip mobility and LB/ core/hip strengthening for C/S , L/S, hips and shoulder/ scapular stabilization, HEP, Modalities as needed for pain relief.
--- NOTE | 2023-08-23 17:25 | PT.OTN ---
Current Diagnoses Other chronic pain (08/23/23) Low back pain, unspecified (08/23/23) Physical Therapy Treatment Note PT-OP-A Visit Information Start: 07/05/23 16:16 Freq: Status: Active Protocol: Document 08/23/23 09:52 LRN (Rec: 08/23/23 10:32 LRN [id number]) Out-Patient Physical Therapy Visit Information Visit Information Visit Type Treatment Note Visit Start Time 09:52 Visit Stop Time 10:30 Visit Number 14 Evaluation Information Evaluation Date 07/10/23 Precautions Precautions Colon CA with resection 2018, back/neck pain history, HBP controlled by meds. PT-OP-B Current Condition Start: 07/05/23 16:16 Freq: Status: Active Protocol: Document 07/10/23 13:48 LRN (Rec: 07/10/23 14:33 LRN [id number]) Current Condition History of Current Condition Onset Date 05/2023 Current Complaints Sciatic pain in vazquez hips, sharp stabbing. History of Current Condition Last week saw Cancer MD and is scheduled 07/20/[address] scan of pelvis and MRI of back . Has pain in L ASIS all the time that is dull achy, but with pressure pain is sharp. States that is the location of the colon resection incision (10 removal of descending colon for cancer removal, 2019 ). Developmental History Developmental History Week before Xmas was helping to decorate the [employer] ( helping little kids making snowflakes & was leaning over a lot), next day in kitchen twisted and had sharp stabbing pain. Pain decreased with rest and Advil & Alleve. A week later was sitting wrong on high bar stool (@ kitchen counter) had return of sharp pain return and had to use walker and raised toilet seat for a couple of days. R ASIS pain onset within the past 2 weeks. PMH: Per intake form: Mild high BP controlled by meds, TMJ pain, Neck pain from computer work. Treatment Goals Patient/Caregiver Goals PT goal: Finish washing dishes without onset of back pain. Have a ex program to improve hip mobility to move around in bed without pain. Vacuuming with modified posturing. Current Functional Impairments (Reported) Functional Limitations- ADL's Not able to complete washing dishes unless she takes a break, because of sharp pain. Able to last 10 minutes. Personal Factors Other Personal Factors That May Effect Colon CA 2019 w/resection of Therapy/Recovery descending colon. PT-OP-C Subjective Start: 07/05/23 16:16 Freq: Status: Active Protocol: Document 08/23/23 09:52 LRN (Rec: 08/23/23 10:32 LRN [id number]) OP-PT Subjective Patient Comments Patient Comments Yesterday around the house the hips weren't hurting but the middle of the back hurt, dull ache all day. Once did ex's felt better. PT-OP-H Neuro Start: 07/05/23 16:16 Freq: Status: Active Protocol: Document 07/12/23 13:47 LRN (Rec: 07/12/23 17:29 LRN [id number]) Sensation Evaluation Gross Sensation Gross Sensation WNL Deep Tendon Reflex & Clonus Assessment Deep Tendon Reflex Bilateral Achilles Deep Tendon Reflex 3+ Normal But Brisk Bilateral Patellar Deep Tendon Reflex 3+ Normal But Brisk PT-OP-J Posture/Palpation/Skin Start: 07/05/23 16:16 Freq: Status: Active Protocol: Document 07/10/23 13:48 LRN (Rec: 07/10/23 14:33 LRN [id number]) Posture Evaluation Position Standing Head/C-Spine Posture Forward Head T-Spine Posture Increased Kyphosis L-Spine Posture Decreased Lordosis Shoulder Posture (R) Elevated Pelvis Posture (R) PSIS Posterior,(L) PSIS Inferior,(R) ASIS Inferior Weight Distribution Balanced Knee Posture (L) Genu Valgus,(R) Genu Valgus Comments Posture Comments L innominate is posterly rotated and inflared. Palpation Assessment Location ASIS' Palpation Location Vazquez ASIS, L>R Palpation Findings Tenderness Low Back Palpation Findings Tenderness PT-OP-K Range of Motion Start: 07/05/23 16:16 Freq: Status: Active Protocol: Document 08/23/23 09:52 LRN (Rec: 08/23/23 10:32 LRN [id number]) Hip Goniometric Range of Motion Hip Right Passive Testing Position Supine Left Passive Testing Position Supine PT-OP-L Special Tests Start: 07/05/23 16:16 Freq: Status: Active Protocol: Document 07/10/23 13:48 LRN (Rec: 07/10/23 14:33 LRN [id number]) Special Tests Lumbar Spine Special Tests Miky Test Results + bilaterally Comments Mild hip flexor tightnesss Prone Press Up Test Results - Manual Traction Test Results - Straight Leg Raise Test Results + at 45 deg's left, + 60 right Comments L: lat hip pain, R: gastroc pain Slump Test Results - bilaterally Vertical Spine Loading Test Results - PT-OP-M Strength Start: 07/05/23 16:16 Freq: Status: Active Protocol: Document 07/12/23 13:47 LRN (Rec: 07/12/23 17:31 LR [id number]) Hip Strength Hip Manual Muscle Testing Right Flexion (L2) 5 Normal External Rotation 3+ Fair+ Internal Rotation 5 Normal Left Flexion (L2) 5 Normal External Rotation 3 Fair Internal Rotation 5 Normal Knee Strength Knee Manual Muscle Testing Right Flexion (S2) 4+ Good+ Extension (L3) 5 Normal Left Comments 5/5 in all ms groups Ankle/Foot Strength Ankle and Foot Manual Muscle Testing Right Comments 5/5 in all ms groups Left Comments 5/5 in all ms groups PT-OP-Q Treatments Start: 07/05/23 16:16 Freq: Status: Active Protocol: Document 08/23/23 09:52 LRN (Rec: 08/23/23 10:32 N [id number]) Therapeutic Exercises Supine Exercises resisted clamshell Supine Exercise Name added to HEP Side bilateral Resistance TB #2 Reps/Minutes 5 SH x10 Comments states TA and PPT neutral, some tension in ES but not bad hamstring stretch Supine Exercise Name HS stretch/LE neural glide /c AP Side bilateral Equipment Used use towel behind thigh support , no strain on neck Reps/Minutes 2x L, 1x R- (10 AP) Comments Extra time to determine best position of hold FIg 4 Supine Exercise Name Fig 4 stretch, f/b Active hip ER x 10 Side bilateral Equipment Used pillow under head & folded towel under R hip level Reps/Minutes 60 sec x 2 Comments Good request folded towel A prop pelvis to keep level, cued ed hold time Lateral hip stretch Supine Exercise Name reviewed - less of a focus on this stretch Side left Resistance can reach knee better Equipment Used pillow under head, use towel better pull ability Reps/Minutes 30 x2 for recovery between sets Comments Pt able to put L foot above R knee for stretch rather than over opp knee. Standing Exercises squat with hip hinge Standing Exercise Name Squat hover reviewed & sit<> stands Side bilateral Resistance L2 TB Equipment Used hover chair 1 from 19 Reps/Minutes 6' Comments Verbal cues to hip hinge and keep knees abd, squat 3/4 Manual Therapy Treatment Soft Tissue Mobilization L abdomen Body Location Abdomen stretch and with knees LTR Mobilization Type Myofascial Release,Sustained Pressure Intensity/Depth Moderate Body Position Hooklying Comments L side tigher than R at ASIS. PT-OP-T Assessment and Plan Start: 07/05/23 16:16 Freq: Status: Active Protocol: Document 08/23/23 09:52 LRN (Rec: 08/23/23 10:32 LRN [id number]) Physical Therapy Assessment Goals Three Impairment Decreased function per TAL score of 30/100 (20-39% impaired, score 20-). Impairment TAL score of 30/100 (20-39% impaired, score 20-39). Short Term Goal (STG) Improve core/hip/pelvic stability and strength with pt able to wash dishes > 10 minutes to finish dishes without back pain. 08/14/23: Having back weariness with doing dishes. if pain, uses heat pad that helps. TAL = 15/100 (1-19% impaired, score 1-19). 08/21/23: lasts about few min before back pain. Ed squat & pivot put dishes away. STG Duration 4 wks-08/10/23 progressing 08/14/23 Snf Goal (LTG) Pt is able to vacuum with proper body mechanics without LBP/R hip pain, TAL score 1-19 (1-19% impaired). 08/14/23: Able to vacuum with onset of LB/L hip pain (feels L hip pain won't ever go away ). LBP rated 1-2/10, not sharp anymore. TAL score is 14/100 (1-19% impaired). LTG Duration 8 wks-09/04/23 (08/14/23: MET GOAL) Two Impairment Decreased core/hip mobility Impairment Pain with moving around in bed . Short Term Goal (STG) Pt will be educated in self soft tissue mob to hips, abdomen and educated in pain management techniques. 07/19/23: Pt educated in self manual MFR to L abdominal upper quadrant. 07/23/23: self STM L TFL decreased anterior hip tension . STG Duration 4 wks-08/10/23 progressed (need mobs of hips and pn mgmt educ) [employer] Goal (LTG) Pt will improve hip mobility to be able to move around in bed without pain. 07/31/2023 Observed patient perform log roll with good tech no grimacing during session 08/08/23: GOAL METpt ableto bridge and good log roll technique to move around in, sup<> sit in bed. LTG Duration 8 wks-09/04/23 GOAL MET One Impairment Pt lacks appropriate self care HEP. Short Term Goal (STG) Pt will be educated in log roll transfers, proper body mechanics for ADLs, proper sitting/standing posture. 07/12/23: Pt educated in log roll technique for transfers in/out of bed and for hip hinging with sit<>stand. 07/19/23: Pt educated in ex to promote proper sit/stand posture. 07/23/23: ed for continued seated and standing posture, use wall and added TB resisted shld ER, improved self corrections. 07/25/23: continued ed stand/sit posture. 08/08/23: coontinued ed side sleeping use pillows betwn BLEs and behind back, then body mechanics log roll, STS and hip hinge fwd cone picker basket and walk up /down stairs. STG Duration 2 wks-07/27/23 progressed (need body mech ADLs, ed posture) Snf Goal (LTG) Pt will be independent in an effective self care HEP for LB /abdomen/hip mobility and LB/ core/hip strengthening, L/S, and shoulder/scapular stabilization. 07/12/23: HEP: R>L Hip ER stretch (Fig 4), Piriformis stretch, and lateral hip stretch. Gluteal L>R KTC stretch 07/19/23: HEP I/S: Sup/stand T/S ext and 07/23/23: added postural TB #1 to shld ER. 07/25/23: added side hip abd AROM. 08/08/23: added wall posture holds and can add resisted shld ER and resisted shld ext, sequencial TA august. 08/17/23: added core bridge lat scoot TH Act for improve engagement functional mobility without need BUE support, pn free. 08/21/23: added LTG Duration 10/02/23 progressed 08/17/23 Assessment Summary Assessment Pt has soft tissue dysfunction of the spine and abdomen, with onset of LBP and bilateral ASIS pain with palpation, probably associated with her colon resection. Stretch to hip ER (fig4) was felt in anterior hips at ASIS) . Pelvic alignment is good. Anterior ASIS discomfort with Hover squat/TB and Fig 4 stretch. L anterior abdomen is tighter than R. Physical Therapy Plan Frequency and Duration Frequency of Treatment 2x/Week Duration of treatment (weeks) 12 Plan of Care Start Date 07/10/23 Plan of Care End Date 10/02/23 Next Visit Focus/Plan Next Note Type Treatment Note Next Visit Plan Next: Focus on vazquez hip ER stretch and abdominal STM. Educ: Pain management - RICE, discuss use of hot pack/ex use (STG 2). Address goals as indicated below. Continue review LS ext neutral during hip stretching ( hamstring long sit) PRN. * Show posture/pounds image for alignment and educ body mech ADLs (STG 1). Cont manual therapy to improve abdominal/LB mobility. POC: core/LB strengthenining, and education in body mechanics for ADLs, self STM, and posture ed/training and hip ER mobilization. Manual therapy & exer to improve LB/ abdomen/hip mobility and LB/ core/hip strengthening for C/S , L/S, hips and shoulder/ scapular stabilization, HEP, Modalities as needed for pain relief.
--- NOTE | 2023-08-28 10:35 | PT.OTN ---
Current Diagnoses Other chronic pain (08/28/23) Low back pain, unspecified (08/28/23) Physical Therapy Treatment Note PT-OP-A Visit Information Start: 07/05/23 16:16 Freq: Status: Active Protocol: Document 08/28/23 09:48 SP (Rec: 08/28/23 10:35 SP [id number]) Out-Patient Physical Therapy Visit Information Visit Information Visit Type Treatment Note Visit Start Time 09:48 Visit Stop Time 10:35 Visit Number 15 Number of PRODUCTION TROUBLESHOOTER Visits 1 Evaluation Information Evaluation Date 07/10/23 Precautions Precautions Colon CA with resection 2018, back/neck pain history, HBP controlled by meds. PT-OP-B Current Condition Start: 07/05/23 16:16 Freq: Status: Active Protocol: Document 07/10/23 13:48 LRN (Rec: 07/10/23 14:33 LRN [id number]) Current Condition History of Current Condition Onset Date 05/2023 Current Complaints Sciatic pain in vazquez hips, sharp stabbing. History of Current Condition Last week saw Cancer MD and is scheduled 07/20/[address] scan of pelvis and MRI of back . Has pain in L ASIS all the time that is dull achy, but with pressure pain is sharp. States that is the location of the colon resection incision (10 removal of descending colon for cancer removal, 2019 ). Developmental History Developmental History Week before Xmas was [facility] ( helping little kids making snowflakes & was leaning over a lot), next day in kitchen twisted and had sharp stabbing pain. Pain decreased with rest and Advil & Alleve. A week later was sitting wrong on high bar stool (@ kitchen counter) had return of sharp pain return and had to use walker and raised toilet seat for a couple of days. R ASIS pain onset within the past 2 weeks. PMH: Per intake form: Mild high BP controlled by meds, TMJ pain, Neck pain from computer work. Treatment Goals Patient/Caregiver Goals PT goal: Finish washing dishes without onset of back pain. Have a ex program to improve hip mobility to move around in bed without pain. Vacuuming with modified posturing. Current Functional Impairments (Reported) Functional Limitations- ADL's Not able to complete washing dishes unless she takes a break, because of sharp pain. Able to last 10 minutes. Personal Factors Other Personal Factors That May Effect Colon CA 2019 w/resection of Therapy/Recovery descending colon. PT-OP-C Subjective Start: 07/05/23 16:16 Freq: Status: Active Protocol: Document 08/28/23 09:48 SP (Rec: 08/28/23 10:35 SP [id number]) OP-PT Subjective Patient Comments Patient Comments Pt reports only has 2 more appts and having cataract surgery Sep 03 1 eye and Sep 24 opp eye. She thinks 2 appts with gap between gives her time to see how HEP self before final decision of DC to own HEP. She reports only having to take Tylenol couple times in a week is tremendous improvement in her mobility and strength back to normal progression noticed. PT-OP-H Neuro Start: 07/05/23 16:16 Freq: Status: Active Protocol: Document 07/12/23 13:47 LRN (Rec: 07/12/23 17:29 LRN [id number]) Sensation Evaluation Gross Sensation Gross Sensation WNL Deep Tendon Reflex & Clonus Assessment Deep Tendon Reflex Bilateral Achilles Deep Tendon Reflex 3+ Normal But Brisk Bilateral Patellar Deep Tendon Reflex 3+ Normal But Brisk PT-OP-J Posture/Palpation/Skin Start: 07/05/23 16:16 Freq: Status: Active Protocol: Document 07/10/23 13:48 LRN (Rec: 07/10/23 14:33 LRN [id number]) Posture Evaluation Position Standing Head/C-Spine Posture Forward Head T-Spine Posture Increased Kyphosis L-Spine Posture Decreased Lordosis Shoulder Posture (R) Elevated Pelvis Posture (R) PSIS Posterior,(L) PSIS Inferior,(R) ASIS Inferior Weight Distribution Balanced Knee Posture (L) Genu Valgus,(R) Genu Valgus Comments Posture Comments L innominate is posterly rotated and inflared. Palpation Assessment Location ASIS' Palpation Location Vazquez ASIS, L>R Palpation Findings Tenderness Low Back Palpation Findings Tenderness PT-OP-K Range of Motion Start: 07/05/23 16:16 Freq: Status: Active Protocol: Document 08/23/23 09:52 LRN (Rec: 08/23/23 10:32 LRN [id number]) Hip Goniometric Range of Motion Hip Right Passive Testing Position Supine Left Passive Testing Position Supine PT-OP-L Special Tests Start: 07/05/23 16:16 Freq: Status: Active Protocol: Document 07/10/23 13:48 LRN (Rec: 07/10/23 14:33 LRN [id number]) Special Tests Lumbar Spine Special Tests Miky Test Results + bilaterally Comments Mild hip flexor tightnesss Prone Press Up Test Results - Manual Traction Test Results - Straight Leg Raise Test Results + at 45 deg's left, + 60 right Comments L: lat hip pain, R: gastroc pain Slump Test Results - bilaterally Vertical Spine Loading Test Results - PT-OP-M Strength Start: 07/05/23 16:16 Freq: Status: Active Protocol: Document 07/12/23 13:47 LRN (Rec: 07/12/23 17:31 LRN [id number]) Hip Strength Hip Manual Muscle Testing Right Flexion (L2) 5 Normal External Rotation 3+ Fair+ Internal Rotation 5 Normal Left Flexion (L2) 5 Normal External Rotation 3 Fair Internal Rotation 5 Normal Knee Strength Knee Manual Muscle Testing Right Flexion (S2) 4+ Good+ Extension (L3) 5 Normal Left Comments 5/5 in all ms groups Ankle/Foot Strength Ankle and Foot Manual Muscle Testing Right Comments 5/5 in all ms groups Left Comments 5/5 in all ms groups PT-OP-Q Treatments Start: 07/05/23 16:16 Freq: Status: Active Protocol: Document 08/28/23 09:48 SP (Rec: 08/28/23 10:35 SP [id number]) Therapeutic Exercises Standing Exercises TA /c SL sliders Standing Exercise Name added to HEP (progression self easy standing B home) Side bilateral Resistance AROM alternating Equipment Used contact table PRN, slider ( home device)- core/hip abd strengthening Reps/Minutes 10 reps each LE Comments ed/cues for posture and TA/NS resisted Shld ext Standing Exercise Name reviewed Resistance Tb #3 green Reps/Minutes x10, 2 SH Comments cued postural alignment, CS ext/nod tuck, scap set wall posture Standing Exercise Name TA arms anatomical position palms fwd- free standing posture engagment Equipment Used free standing incorporate into ADLs for reduction neck/back pain Reps/Minutes 10 SH x5 reps Comments ed postural alignment for increase endurance/pn reduction ADLs squat with hip hinge Standing Exercise Name Squat hover reviewed & sit<> stands Side bilateral Resistance L2 TB below knees, arms on hips Equipment Used hover chair 18 Reps/Minutes 2x10 reps Comments Verbal cues to hip hinge and keep knees abd, squat 3/4 Therapeutic Activity Therapeutic Activity body mechanics Name ADLs washing dishes, cooking, long roll in/out bed Comments -log roll -STS from chair/slow descend sit -Cues for straight back/head neutral, TA/NS and soft knee alignment - stop do CS retraction/ rotation/scap retraction as in wall posture/ resisted shld ext for muscle activation and reduction neck/back pain during ADLs. Self-Care/Home Management Treatment Education Other Education Much time ed postural awareness carryover into ADLs, future tx gardening. Better understanding adjustment in postural alignment after education use posture and pound image and how gravity adds more stress to back. Wt shift between BLEs. PT-OP-T Assessment and Plan Start: 07/05/23 16:16 Freq: Status: Active Protocol: Document 08/28/23 09:48 SP (Rec: 08/28/23 10:35 SP [id number]) Physical Therapy Assessment Goals Three Impairment Decreased function per TAL score of 30/100 (20-39% impaired, score 20-). Impairment TAL score of 30/100 (20-39% impaired, score 20-39). Short Term Goal (STG) Improve core/hip/pelvic stability and strength with pt able to wash dishes > 10 minutes to finish dishes without back pain. 08/14/23: Having back weariness with doing dishes. if pain, uses heat pad that helps. TAL = 15/100 (1-19% impaired, score 1-19). 08/21/23: lasts about few min before back pain. Ed squat & pivot put dishes away. 08/28/23: slow progress: she reports filling up water pitchers standing in front sink hurts back. STG Duration 4 wks-08/10/23 progressing 08/28/23 Loading Unit Operator Crimping Goal (LTG) Pt is able to vacuum with proper body mechanics without LBP/R hip pain, TAL score 1-19 (1-19% impaired). 08/14/23: Able to vacuum with onset of LB/L hip pain (feels L hip pain won't ever go away ). LBP rated 1-2/10, not sharp anymore. TAL score is 14/100 (1-19% impaired). 08/28/23: Progressing: just middle of back weak but no pain. LTG Duration 8 wks-09/04/23 (08/14/23: MET GOAL) Two Impairment Decreased core/hip mobility Impairment Pain with moving around in bed . Short Term Goal (STG) Pt will be educated in self soft tissue mob to hips, abdomen and educated in pain management techniques. 07/19/23: Pt educated in self manual MFR to L abdominal upper quadrant. 07/23/23: self STM L TFL decreased anterior hip tension . 08/28/23: GOAL MET: self massage when needed and complaint with HEP every night to help back relief, couple nights ago had pain all night the pillow mgt isn't helping moves to much but find back best with pillow under thighs and use angle bed for comfort/ support. STG Duration 4 wks-08/10/23 GOAL MET Nursing Home Goal (LTG) Pt will improve hip mobility to be able to move around in bed without pain. 07/31/2023 Observed patient perform log roll with good tech no grimacing during session 08/08/23: GOAL METpt ableto bridge and good log roll technique to move around in, sup<> sit in bed. LTG Duration 8 wks-09/04/23 GOAL MET One Impairment Pt lacks appropriate self care HEP. Short Term Goal (STG) Pt will be educated in log roll transfers, proper body mechanics for ADLs, proper sitting/standing posture. 07/12/23: Pt educated in log roll technique for transfers in/out of bed and for hip hinging with sit<>stand. 07/19/23: Pt educated in ex to promote proper sit/stand posture. 07/23/23: ed for continued seated and standing posture, use wall and added TB resisted shld ER, improved self corrections. 07/25/23: continued ed stand/sit posture. 08/08/23: coontinued ed side sleeping use pillows betwn BLEs and behind back, then body mechanics log roll, STS and hip hinge fwd seed cone picker basket and walk up /down stairs. 08/28/23: Progressing: good sup >SL>sit but further ed for sit >SL/Supine carryover STG Duration 2 wks-07/27/23 progressed (need body mech ADLs, ed posture) Nursing Home Goal (LTG) Pt will be independent in an effective self care HEP for LB /abdomen/hip mobility and LB/ core/hip strengthening, L/S, and shoulder/scapular stabilization. 07/12/23: HEP: R>L Hip ER stretch (Fig 4), Piriformis stretch, and lateral hip stretch. Gluteal L>R KTC stretch 07/19/23: HEP I/S: Sup/stand T/S ext and 07/23/23: added postural TB #1 to shld ER. 07/25/23: added side hip abd AROM. 08/08/23: added wall posture holds and can add resisted shld ER and resisted shld ext, sequencial TA august. 08/17/23: added core bridge lat scoot TH Act for improve engagement functional mobility without need BUE support, pn free. 08/21/23: added isometric abd STS eccentric taps 08/28/23: SL sliders vs easier home device Vazquez for progression TA standing support strength/endurance kitchen ADLs. LTG Duration 10/02/23 progressed 08/28/23 Progress Towards Goals Progress Towards Goals Progressing Toward Goals Progress Comments MET STG&>LTG #2 education self STMs and use pillows for sleeping, best on back. Assessment Summary Assessment Pt is progressing with goals, much time spent edcuation on body mechanics and postural alignment to support reduction in posterior neck/back help for endurance standing ADLs: washing dishes/cooking/filling water pitcher with better understanding beingmore mindful of adjustments and stop do CS AROM and shld ext for postural active support. Physical Therapy Plan Frequency and Duration Frequency of Treatment 2x/Week Duration of treatment (weeks) 12 Plan of Care Start Date 07/10/23 Plan of Care End Date 10/02/23 Therapeutic Interventions Therapeutic Interventions Home Exercise Program,Joint Mobilizations,Manual Therapy, Neuromuscular Re-education, Self-Care/Home Management,Soft Tissue Mobilization, Therapeutic Activities, Therapeutic Exercises Modalities Cold Pack/Ice Massage,Hot Packs Next Visit Focus/Plan Next Note Type Treatment Note Next Visit Plan 2 appts left PRODUCTION TROUBLESHOOTER then PT. Next tx: review core and hip strengthening HEP, add if supportive to elongated ADL standing/mobility for cooking/ gardening. Continue Mechanics with ADLs and gardening next tx to prep DC last appt in 3 weeks. Gap between appts will all pt eye surgery recovery and self HEP ready to continue own or if need extend POC.
--- NOTE | 2023-08-30 11:37 | PT.OTN ---
Current Diagnoses Other chronic pain (08/30/23) Low back pain, unspecified (08/30/23) Physical Therapy Treatment Note PT-OP-A Visit Information Start: 07/05/23 16:16 Freq: Status: Active Protocol: Document 08/30/23 08:11 AB (Rec: 08/30/23 11:37 AB [id number]) Out-Patient Physical Therapy Visit Information Visit Information Visit Type Treatment Note Visit Start Time 09:48 Visit Stop Time 10:32 Visit Number 16 Number of PROGRAM ASSOCIATE Visits 2 Evaluation Information Evaluation Date 07/10/23 Precautions Precautions Colon CA with resection 2018, back/neck pain history, HBP controlled by meds. PT-OP-B Current Condition Start: 07/05/23 16:16 Freq: Status: Active Protocol: Document 07/10/23 13:48 LRN (Rec: 07/10/23 14:33 LRN [id number]) Current Condition History of Current Condition Onset Date 05/2023 Current Complaints Sciatic pain in rashawn hips, sharp stabbing. History of Current Condition Last week saw Cancer MD and is scheduled 07/20/[address] scan of pelvis and MRI of back . Has pain in L ASIS all the time that is dull achy, but with pressure pain is sharp. States that is the location of the colon resection incision (10 removal of descending colon for cancer removal, 2019 ). Developmental History Developmental History Week before Xmas was helping to decorate the [employer] ( helping little kids making snowflakes & was leaning over a lot), next day in kitchen twisted and had sharp stabbing pain. Pain decreased with rest and Advil & Alleve. A week later was sitting wrong on high bar stool (@ kitchen counter) had return of sharp pain return and had to use walker and raised toilet seat for a couple of days. R ASIS pain onset within the past 2 weeks. PMH: Per intake form: Mild high BP controlled by meds, TMJ pain, Neck pain from computer work. Treatment Goals Patient/Caregiver Goals PT goal: Finish washing dishes without onset of back pain. Have a ex program to improve hip mobility to move around in bed without pain. Vacuuming with modified posturing. Current Functional Impairments (Reported) Functional Limitations- ADL's Not able to complete washing dishes unless she takes a break, because of sharp pain. Able to last 10 minutes. Personal Factors Other Personal Factors That May Effect Colon CA 2019 w/resection of Therapy/Recovery descending colon. PT-OP-C Subjective Start: 07/05/23 16:16 Freq: Status: Active Protocol: Document 08/30/23 08:11 AB (Rec: 08/30/23 11:37 AB [id number]) OP-PT Subjective Patient Comments Patient Comments Patient reports she is the same, standing at the sink, and gardening the back feels weak, also sitting too much causes the back to hurt when she gets up. Observed ribs move cranially with breathing/ infracostal angle 138 deg. PT-OP-H Neuro Start: 07/05/23 16:16 Freq: Status: Active Protocol: Document 07/12/23 13:47 LRN (Rec: 07/12/23 17:29 LRN [id number]) Sensation Evaluation Gross Sensation Gross Sensation WNL Deep Tendon Reflex & Clonus Assessment Deep Tendon Reflex Bilateral Achilles Deep Tendon Reflex 3+ Normal But Brisk Bilateral Patellar Deep Tendon Reflex 3+ Normal But Brisk PT-OP-J Posture/Palpation/Skin Start: 07/05/23 16:16 Freq: Status: Active Protocol: Document 07/10/23 13:48 LRN (Rec: 07/10/23 14:33 LRN [id number]) Posture Evaluation Position Standing Head/C-Spine Posture Forward Head T-Spine Posture Increased Kyphosis L-Spine Posture Decreased Lordosis Shoulder Posture (R) Elevated Pelvis Posture (R) PSIS Posterior,(L) PSIS Inferior,(R) ASIS Inferior Weight Distribution Balanced Knee Posture (L) Genu Valgus,(R) Genu Valgus Comments Posture Comments L innominate is posterly rotated and inflared. Palpation Assessment Location ASIS' Palpation Location Rashawn ASIS, L>R Palpation Findings Tenderness Low Back Palpation Findings Tenderness PT-OP-K Range of Motion Start: 07/05/23 16:16 Freq: Status: Active Protocol: Document 08/23/23 09:52 LRN (Rec: 08/23/23 10:32 LRN [id number]) Hip Goniometric Range of Motion Hip Right Passive Testing Position Supine Left Passive Testing Position Supine PT-OP-L Special Tests Start: 07/05/23 16:16 Freq: Status: Active Protocol: Document 07/10/23 13:48 LRN (Rec: 07/10/23 14:33 LRN [id number]) Special Tests Lumbar Spine Special Tests Miky Test Results + bilaterally Comments Mild hip flexor tightnesss Prone Press Up Test Results - Manual Traction Test Results - Straight Leg Raise Test Results + at 45 deg's left, + 60 right Comments L: lat hip pain, R: gastroc pain Slump Test Results - bilaterally Vertical Spine Loading Test Results - PT-OP-M Strength Start: 07/05/23 16:16 Freq: Status: Active Protocol: Document 07/12/23 13:47 LRN (Rec: 07/12/23 17:31 LRN [id number]) Hip Strength Hip Manual Muscle Testing Right Flexion (L2) 5 Normal External Rotation 3+ Fair+ Internal Rotation 5 Normal Left Flexion (L2) 5 Normal External Rotation 3 Fair Internal Rotation 5 Normal Knee Strength Knee Manual Muscle Testing Right Flexion (S2) 4+ Good+ Extension (L3) 5 Normal Left Comments 5/5 in all ms groups Ankle/Foot Strength Ankle and Foot Manual Muscle Testing Right Comments 5/5 in all ms groups Left Comments 5/5 in all ms groups PT-OP-Q Treatments Start: 07/05/23 16:16 Freq: Status: Active Protocol: Document 08/30/23 08:11 AB (Rec: 08/30/23 11:37 AB [id number]) Therapeutic Exercises Supine Exercises abdominial bracing with LE extension Side bilateral Reps/Minutes X10 Comments Verbal cues to brace as knee moves laterally out to side TA sequencial march Supine Exercise Name SEquential marching w/cues count for breath 1, 2,3,4 Side bilateral Reps/Minutes X10 each LE Comments post hip flexor stretch Miky stretch Supine Exercise Name Hip flexor stretch - added knee flexion AROM X10 to each stretch Side bilateral Equipment Used off side of table Reps/Minutes 60 sec left and right LE X 2 each Comments post manual therapy, VC for breathing with diaphragm Sitting Exercises seated hip abduction with band Side bilateral Resistance level 2 band Reps/Minutes X10 without hold an done one minute hold Comments Verbal cues Standing Exercises squat with hip hinge Resistance L2 band above knees Reps/Minutes X10 Comments VC to squat to a depth that does not increase pain Manual Therapy Treatment Soft Tissue Mobilization STM to bilateral hip flexors Body Location hip flex at groin Mobilization Type Cross-Friction,Rolling Intensity/Depth Moderate Body Position Hooklying Comments prior to stretch Self-Care/Home Management Treatment Education Other Education Breathing from diaphragm, verbal and tactile cues, patient ed rationale for relaxing muscles and to perform in modified restorative pose when feeling weak post doing too much. Patient ed to bring HEP to eye surgeon, to make sure she is made aware how long she must not perform exercises post eye surgery. Activities Self-Care/Home Management Activities HEP revised to allow choice for similar exercises instead of performing all versions, and to discontinue easier exercise when a version of ex was progressed. PT-OP-T Assessment and Plan Start: 07/05/23 16:16 Freq: Status: Active Protocol: Document 08/30/23 08:11 AB (Rec: 08/30/23 11:37 AB [id number]) Physical Therapy Assessment Goals Three Impairment Decreased function per TAL score of 30/100 (20-39% impaired, score 20-). Impairment TAL score of 30/100 (20-39% impaired, score 20-39). Short Term Goal (STG) Improve core/hip/pelvic stability and strength with pt able to wash dishes > 10 minutes to finish dishes without back pain. 08/14/23: Having back weariness with doing dishes. if pain, uses heat pad that helps. TAL = 15/100 (1-19% impaired, score 1-19). 08/21/23: lasts about few min before back pain. Ed squat & pivot put dishes away. 08/28/23: slow progress: she reports filling up water pitchers standing in front sink hurts back. STG Duration 4 wks-08/10/23 progressing 08/28/23 Outpatient Phlebotomist Goal (LTG) Pt is able to vacuum with proper body mechanics without LBP/R hip pain, TAL score 1-19 (1-19% impaired). 08/14/23: Able to vacuum with onset of LB/L hip pain (feels L hip pain won't ever go away ). LBP rated 1-2/10, not sharp anymore. TAL score is 14/100 (1-19% impaired). 08/28/23: Progressing: just middle of back weak but no pain. LTG Duration 8 wks-09/04/23 (08/14/23: MET GOAL) One Impairment Pt lacks appropriate self care HEP. Short Term Goal (STG) Pt will be educated in log roll transfers, proper body mechanics for ADLs, proper sitting/standing posture. 07/12/23: Pt educated in log roll technique for transfers in/out of bed and for hip hinging with sit<>stand. 07/19/23: Pt educated in ex to promote proper sit/stand posture. 07/23/23: ed for continued seated and standing posture, use wall and added TB resisted shld ER, improved self corrections. 07/25/23: continued ed stand/sit posture. 08/08/23: coontinued ed side sleeping use pillows betwn BLEs and behind back, then body mechanics log roll, STS and hip hinge fwd pickler helper basket and walk up /down stairs. 08/28/23: Progressing: good sup >SL>sit but further ed for sit >SL/Supine carryover 08/30/23 self initiated log roll this session, verbalizing steps. STG Duration 2 wks-07/27/23 progressed (need [facility] AD[facility], ed posture) Outpatient Phlebotomist Goal (LTG) Pt will be independent in an effective self care HEP for LB /abdomen/hip mobility and LB/ core/hip strengthening, L/S, and shoulder/scapular stabilization. 07/12/23: HEP: R>L Hip ER stretch (Fig 4), Piriformis stretch, and lateral hip stretch. Gluteal L>R KTC stretch 07/19/23: HEP I/S: Sup/stand T/S ext and 07/23/23: added postural TB #1 to shld ER. 07/25/23: added side hip abd AROM. 08/08/23: added wall posture holds and can add resisted shld ER and resisted shld ext, sequencial TA august. 08/17/23: added core bridge lat scoot TH Act for improve engagement functional mobility without need BUE support, pn free. 08/21/23: added isometric abd STS eccentric taps 08/28/23: SL sliders vs easier home device Rashawn for progression TA standing support strength/endurance kitchen ADLs. LTG Duration 10/02/23 progressed 08/28/23 Assessment Summary Assessment Tamara reports feeling refreshed end of session, HEP updated to make patient aware of similar exercises for a muscle group, and patient advised to choose one vs performing multiple versions. Physical Therapy Plan Frequency and Duration Frequency of Treatment 2x/Week Duration of treatment (weeks) 12 Plan of Care Start Date 07/10/23 Plan of Care End Date 10/02/23 Next Visit Focus/Plan Next Visit Plan glute med activation and adominal bracing with LE extension to HEP, review breathing from diaphragm.
--- NOTE | 2023-09-27 15:17 | PT.OTN ---
Current Diagnoses Other chronic pain (09/27/23) Low back pain, unspecified (09/27/23) Physical Therapy Treatment Note PT-OP-A Visit Information Start: 07/05/23 16:16 Freq: Status: Active Protocol: Document 09/27/23 14:34 LRN (Rec: 09/27/23 15:17 LRN [id number]) Out-Patient Physical Therapy Visit Information Visit Information Visit Type Treatment Note Visit Start Time 14:34 Visit Stop Time 15:15 Visit Number 17 Evaluation Information Evaluation Date 07/10/23 Precautions Precautions Colon CA with resection 2018, back/neck pain history, HBP controlled by meds. PT-OP-B Current Condition Start: 07/05/23 16:16 Freq: Status: Active Protocol: Document 07/10/23 13:48 LRN (Rec: 07/10/23 14:33 LRN [id number]) Current Condition History of Current Condition Onset Date 05/2023 Current Complaints Sciatic pain in vazquez hips, sharp stabbing. History of Current Condition Last week saw Cancer MD and is scheduled 07/20/[address] scan of pelvis and MRI of back . Has pain in L ASIS all the time that is dull achy, but with pressure pain is sharp. States that is the location of the colon resection incision (10 removal of descending colon for cancer removal, 2019 ). Developmental History Developmental History Week before Xmas was helping to decorate the [employer] ( helping little kids making snowflakes & was leaning over a lot), next day in kitchen twisted and had sharp stabbing pain. Pain decreased with rest and Advil & Alleve. A week later was sitting wrong on high bar stool (@ kitchen counter) had return of sharp pain return and had to use walker and raised toilet seat for a couple of days. R ASIS pain onset within the past 2 weeks. PMH: Per intake form: Mild high BP controlled by meds, TMJ pain, Neck pain from computer work. Treatment Goals Patient/Caregiver Goals PT goal: Finish washing dishes without onset of back pain. Have a ex program to improve hip mobility to move around in bed without pain. Vacuuming with modified posturing. Current Functional Impairments (Reported) Functional Limitations- ADL's Not able to complete washing dishes unless she takes a break, because of sharp pain. Able to last 10 minutes. Personal Factors Other Personal Factors That May Effect Colon CA 2019 w/resection of Therapy/Recovery descending colon. PT-OP-C Subjective Start: 07/05/23 16:16 Freq: Status: Active Protocol: Document 09/27/23 14:34 LRN (Rec: 09/27/23 15:17 LRN [id number]) OP-PT Subjective Patient Comments Patient Comments States she hs been doing pretty good. Had catarct surgery so stopped for awhile, but now having pain with return to ex. 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 Pt states she has her bands and is doing her standing ex's at home. States after ex review she is ready for discharge to her HEP. PT-OP-H Neuro Start: 07/05/23 16:16 Freq: Status: Active Protocol: Document 07/12/23 13:47 LRN (Rec: 07/12/23 17:29 LRN [id number]) Sensation Evaluation Gross Sensation Gross Sensation WNL Deep Tendon Reflex & Clonus Assessment Deep Tendon Reflex Bilateral Achilles Deep Tendon Reflex 3+ Normal But Brisk Bilateral Patellar Deep Tendon Reflex 3+ Normal But Brisk PT-OP-J Posture/Palpation/Skin Start: 07/05/23 16:16 Freq: Status: Active Protocol: Document 07/10/23 13:48 LRN (Rec: 07/10/23 14:33 LRN [id number]) Posture Evaluation Position Standing Head/C-Spine Posture Forward Head T-Spine Posture Increased Kyphosis L-Spine Posture Decreased Lordosis Shoulder Posture (R) Elevated Pelvis Posture (R) PSIS Posterior,(L) PSIS Inferior,(R) ASIS Inferior Weight Distribution Balanced Knee Posture (L) Genu Valgus,(R) Genu Valgus Comments Posture Comments L innominate is posterly rotated and inflared. Palpation Assessment Location ASIS' Palpation Location Vazquez ASIS, L>R Palpation Findings Tenderness Low Back Palpation Findings Tenderness PT-OP-K Range of Motion Start: 07/05/23 16:16 Freq: Status: Active Protocol: Document 08/23/23 09:52 LRN (Rec: 08/23/23 10:32 LRN [id number]) Hip Goniometric Range of Motion Hip Right Passive Testing Position Supine Left Passive Testing Position Supine PT-OP-L Special Tests Start: 07/05/23 16:16 Freq: Status: Active Protocol: Document 07/10/23 13:48 LRN (Rec: 07/10/23 14:33 LRN [id number]) Special Tests Lumbar Spine Special Tests Miky Test Results + bilaterally Comments Mild hip flexor tightnesss Prone Press Up Test Results - Manual Traction Test Results - Straight Leg Raise Test Results + at 45 deg's left, + 60 right Comments L: lat hip pain, R: gastroc pain Slump Test Results - bilaterally Vertical Spine Loading Test Results - PT-OP-M Strength Start: 07/05/23 16:16 Freq: Status: Active Protocol: Document 07/12/23 13:47 LRN (Rec: 07/12/23 17:31 LRN [id number]) Hip Strength Hip Manual Muscle Testing Right Flexion (L2) 5 Normal External Rotation 3+ Fair+ Internal Rotation 5 Normal Left Flexion (L2) 5 Normal External Rotation 3 Fair Internal Rotation 5 Normal Knee Strength Knee Manual Muscle Testing Right Flexion (S2) 4+ Good+ Extension (L3) 5 Normal Left Comments 5/5 in all ms groups Ankle/Foot Strength Ankle and Foot Manual Muscle Testing Right Comments 5/5 in all ms groups Left Comments 5/5 in all ms groups PT-OP-Q Treatments Start: 07/05/23 16:16 Freq: Status: Active Protocol: Document 09/27/23 14:34 LRN (Rec: 09/27/23 15:17 LRN [id number]) Therapeutic Exercises Supine Exercises abdominial bracing with LE extension Side bilateral Reps/Minutes X10 Comments Verbal cues to brace as knee moves laterally out to side resisted clamshell Supine Exercise Name Reviewed verbally w/pt TA sequencial march Supine Exercise Name Sequential marching w/cues count for breath 1, 2,3,4 Side bilateral Reps/Minutes X10 each LE Comments post hip flexor stretch hamstring stretch Supine Exercise Name HS stretch/LE neural glide /c AP Side bilateral Equipment Used use towel behind thigh support , no strain on neck Reps/Minutes 2x L, 1x R- (10 AP) Comments Extra time to determine best position of hold Miky stretch Supine Exercise Name Hip flexor stretch - added knee flexion AROM X10 to each stretch Side bilateral Equipment Used off side of table Reps/Minutes 60 sec left and right LE X 2 each Comments post manual therapy, VC for breathing with diaphragm Thoracic Ext Supine Exercise Name Thoracic ext, posture press Resistance Pillow under neck/head Equipment Used hooklying, arms at side press into table Reps/Minutes 10 SH x10 Comments cued rhomboid & post arm engage into table- no LB arch FIg 4 Supine Exercise Name Fig 4 stretch, f/b Active hip ER x 10 Side bilateral Equipment Used pillow under head & folded towel under R hip level Reps/Minutes 60 sec x 2 Comments Good request folded towel A prop pelvis to keep level, cued ed hold time Sidelying Exercises Lateral Hip stretch Side bilateral Reps/Minutes 3' hip abd Side bilateral Resistance top hand front on table kickstand Reps/Minutes x15 each Comments impro stacked alignment on side, cued slower pacing better control/no momen Sitting Exercises SL long sit Sitting Exercise Name SL on plinth for long sit distalHS/Prox gastroc stretch Side bilateral Reps/Minutes 60SH each Comments Cuing to keep arch in back and to do ankle pumps after each 10 sec hold Self-Care/Home Management Treatment Education Patient Education Body Mechanics Other Education Pt educated in proper body mechanics for ADLs, proper sitting/standing posture, and reviewed log roll method for sup<>sit transfer. Educated pt in Proper posture for stress on back with different postures. Activities Self-Care/Home Management Activities Issued HEP: SL hip AD stretch . Handouts issued for proper body mechanics for ADLs, proper sitting/standing posture, and Proper posture for stress on back with different postures. PT-OP-T Assessment and Plan Start: 07/05/23 16:16 Freq: Status: Active Protocol: Document 09/27/23 14:34 LRN (Rec: 09/27/23 15:17 LRN [id number]) Physical Therapy Assessment Goals Three Impairment Decreased function per TAL score of 30/100 (20-39% impaired, score 20-). Impairment TAL score of 30/100 (20-39% impaired, score 20-39). Short Term Goal (STG) Improve core/hip/pelvic stability and strength with pt able to wash dishes > 10 minutes to finish dishes without back pain. 08/14/23: Having back weariness with doing dishes. if pain, uses heat pad that helps. TAL = 15/100 (1-19% impaired, score 1-19). 08/21/23: lasts about few min before back pain. Ed squat & pivot put dishes away. 08/28/23: slow progress: she reports filling up water pitchers standing in front sink hurts back. STG Duration 4 wks-08/10/23 (09/27/23: MET GOAL) Character Actress Goal (LTG) Pt is able to vacuum with proper body mechanics without LBP/R hip pain, TAL score 1-19 (1-19% impaired). 08/14/23: Able to vacuum with onset of LB/L hip pain (feels L hip pain won't ever go away ). LBP rated 1-2/10, not sharp anymore. TAL score is 14/100 (1-19% impaired). 08/28/23: Progressing: just middle of back weak but no pain. LTG Duration 8 wks-09/04/23 (08/14/23: MET GOAL) Two Impairment Decreased core/hip mobility Impairment Pain with moving around in bed . Short Term Goal (STG) Pt will be educated in self soft tissue mob to hips, abdomen and educated in pain management techniques. 07/19/23: Pt educated in self manual MFR to L abdominal upper quadrant. 07/23/23: self STM L TFL decreased anterior hip tension . 08/28/23: GOAL MET: self massage when needed and complaint with HEP every night to help back relief, couple nights ago had pain all night the pillow mgt isn't helping moves to much but find back best with pillow under thighs and use angle bed for comfort/ support. STG Duration 4 wks-08/10/23 GOAL MET Assisted Goal (LTG) Pt will improve hip mobility to be able to move around in bed without pain. 07/31/2023 Observed patient perform log roll with good tech no grimacing during session 08/08/23: GOAL METpt ableto bridge and good log roll technique to move around in, sup<> sit in bed. LTG Duration 8 wks-09/04/23 GOAL MET One Impairment Pt lacks appropriate self care HEP. Short Term Goal (STG) Pt will be educated in log roll transfers, proper body mechanics for ADLs, proper sitting/standing posture. 07/12/23: Pt educated in log roll technique for transfers in/out of bed and for hip hinging with sit<>stand. 07/19/23: Pt educated in ex to promote proper sit/stand posture. 07/23/23: ed for continued seated and standing posture, use wall and added TB resisted shld ER, improved self corrections. 07/25/23: continued ed stand/sit posture. 08/08/23: coontinued ed side sleeping use pillows betwn BLEs and behind back, then body mechanics log roll, STS and hip hinge fwd brass pickler basket and walk up /down stairs. 08/28/23: Progressing: good sup >SL>sit but further ed for sit >SL/Supine carryover 08/30/23 self initiated log roll this session, verbalizing steps. 09/27/23: Pt educated in proper body mechanics for ADLs , proper sitting/standing posture, and reviewed log roll method for sup<>sit transfer. STG Duration 2 wks-07/27/23 (09/27/23: MET GOAL) Assisted Goal (LTG) Pt will be independent in an effective self care HEP for LB /abdomen/hip mobility and LB/ core/hip strengthening, L/S, and shoulder/scapular stabilization. 07/12/23: HEP: R>L Hip ER stretch (Fig 4), Piriformis stretch, and lateral hip stretch. Gluteal L>R KTC stretch 07/19/23: HEP I/S: Sup/stand T/S ext and 07/23/23: added postural TB #1 to shld ER. 07/25/23: added side hip abd AROM. 08/08/23: added wall posture holds and can add resisted shld ER and resisted shld ext, sequencial TA august. 08/17/23: added core bridge lat scoot TH Act for improve engagement functional mobility without need BUE support, pn free. 08/21/23: added isometric abd STS eccentric taps 08/28/23: SL sliders vs easier home device Vazquez for progression TA standing support strength/endurance kitchen ADLs. LTG Duration 10/02/23 (09/27/23: MET GOAL ) Assessment Summary Assessment Pt is being seen for soft tissue dysfunction of the spine and abdomen, with onset of LBP and bilateral ASIS pain with palpation, associated with her colon resection. She has made very good progress towards managing her pain on a HEP. She demonstrates good knowledge of her HEP although she has not been able to do the ex's after her catarct surgery. She has been able to restart her HEP s/p catarct surgery without onset of pain, and prior to surgery was managing her pain with her HEP ; therefore the pt is ready for discharge to her HEP. Physical Therapy Plan Discharge Physical Therapy Discharge Reasons Goals Met Discharge Comments We would be more than happy to work with this pleasant individual again. Thank you for your referral.
--- NOTE | 2023-09-27 15:23 | PT.OTN ---
Current Diagnoses Other chronic pain (09/27/23) Low back pain, unspecified (09/27/23) Physical Therapy Treatment Note PT-OP-A Visit Information Start: 07/05/23 16:16 Freq: Status: Active Protocol: Document 09/27/23 14:34 LRN (Rec: 09/27/23 15:17 LRN [id number]) Out-Patient Physical Therapy Visit Information Visit Information Visit Type Treatment Note Visit Start Time 14:34 Visit Stop Time 15:15 Visit Number 17 Evaluation Information Evaluation Date 07/10/23 Precautions Precautions Colon CA with resection 2018, back/neck pain history, HBP controlled by meds. PT-OP-B Current Condition Start: 07/05/23 16:16 Freq: Status: Active Protocol: Document 07/10/23 13:48 LRN (Rec: 07/10/23 14:33 LRN [id number]) Current Condition History of Current Condition Onset Date 05/2023 Current Complaints Sciatic pain in vazquez hips, sharp stabbing. History of Current Condition Last week saw Cancer MD and is scheduled 07/20/[address] scan of pelvis and MRI of back . Has pain in L ASIS all the time that is dull achy, but with pressure pain is sharp. States that is the location of the colon resection incision (10 removal of descending colon for cancer removal, 2019 ). Developmental History Developmental History Week before Xmas was helping to decorate the [employer] ( helping little kids making snowflakes & was leaning over a lot), next day in kitchen twisted and had sharp stabbing pain. Pain decreased with rest and Advil & Alleve. A week later was sitting wrong on high bar stool (@ kitchen counter) had return of sharp pain return and had to use walker and raised toilet seat for a couple of days. R ASIS pain onset within the past 2 weeks. PMH: Per intake form: Mild high BP controlled by meds, TMJ pain, Neck pain from computer work. Treatment Goals Patient/Caregiver Goals PT goal: Finish washing dishes without onset of back pain. Have a ex program to improve hip mobility to move around in bed without pain. Vacuuming with modified posturing. Current Functional Impairments (Reported) Functional Limitations- ADL's Not able to complete washing dishes unless she takes a break, because of sharp pain. Able to last 10 minutes. Personal Factors Other Personal Factors That May Effect Colon CA 2019 w/resection of Therapy/Recovery descending colon. PT-OP-C Subjective Start: 07/05/23 16:16 Freq: Status: Active Protocol: Document 09/27/23 14:34 LRN (Rec: 09/27/23 15:17 LRN [id number]) OP-PT Subjective Patient Comments Patient Comments States she hs been doing pretty good. Had catarct surgery so stopped for awhile, but now having pain with return to ex. 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 Pt states she has her bands and is doing her standing ex's at home. States after ex review she is ready for discharge to her HEP. Patient Questionnaires Oswestry Low Back Index Oswestry Score 6 Oswestry Impairment 1 to 19% Impaired (Score 1-19) PT-OP-H Neuro Start: 07/05/23 16:16 Freq: Status: Active Protocol: Document 07/12/23 13:47 LRN (Rec: 07/12/23 17:29 LRN [id number]) Sensation Evaluation Gross Sensation Gross Sensation WNL Deep Tendon Reflex & Clonus Assessment Deep Tendon Reflex Bilateral Achilles Deep Tendon Reflex 3+ Normal But Brisk Bilateral Patellar Deep Tendon Reflex 3+ Normal But Brisk PT-OP-J Posture/Palpation/Skin Start: 07/05/23 16:16 Freq: Status: Active Protocol: Document 07/10/23 13:48 LRN (Rec: 07/10/23 14:33 LRN [id number]) Posture Evaluation Position Standing Head/C-Spine Posture Forward Head T-Spine Posture Increased Kyphosis L-Spine Posture Decreased Lordosis Shoulder Posture (R) Elevated Pelvis Posture (R) PSIS Posterior,(L) PSIS Inferior,(R) ASIS Inferior Weight Distribution Balanced Knee Posture (L) Genu Valgus,(R) Genu Valgus Comments Posture Comments L innominate is posterly rotated and inflared. Palpation Assessment Location ASIS' Palpation Location Vazquez ASIS, L>R Palpation Findings Tenderness Low Back Palpation Findings Tenderness PT-OP-K Range of Motion Start: 07/05/23 16:16 Freq: Status: Active Protocol: Document 08/23/23 09:52 LRN (Rec: 08/23/23 10:32 LRN [id number]) Hip Goniometric Range of Motion Hip Right Passive Testing Position Supine Left Passive Testing Position Supine PT-OP-L Special Tests Start: 07/05/23 16:16 Freq: Status: Active Protocol: Document 07/10/23 13:48 LRN (Rec: 07/10/23 14:33 LRN [id number]) Special Tests Lumbar Spine Special Tests Miky Test Results + bilaterally Comments Mild hip flexor tightnesss Prone Press Up Test Results - Manual Traction Test Results - Straight Leg Raise Test Results + at 45 deg's left, + 60 right Comments L: lat hip pain, R: gastroc pain Slump Test Results - bilaterally Vertical Spine Loading Test Results - PT-OP-M Strength Start: 07/05/23 16:16 Freq: Status: Active Protocol: Document 07/12/23 13:47 LRN (Rec: 07/12/23 17:31 LRN [id number]) Hip Strength Hip Manual Muscle Testing Right Flexion (L2) 5 Normal External Rotation 3+ Fair+ Internal Rotation 5 Normal Left Flexion (L2) 5 Normal External Rotation 3 Fair Internal Rotation 5 Normal Knee Strength Knee Manual Muscle Testing Right Flexion (S2) 4+ Good+ Extension (L3) 5 Normal Left Comments 5/5 in all ms groups Ankle/Foot Strength Ankle and Foot Manual Muscle Testing Right Comments 5/5 in all ms groups Left Comments 5/5 in all ms groups PT-OP-Q Treatments Start: 07/05/23 16:16 Freq: Status: Active Protocol: Document 09/27/23 14:34 LRN (Rec: 09/27/23 15:17 LRN [id number]) Therapeutic Exercises Supine Exercises abdominial bracing with LE extension Side bilateral Reps/Minutes X10 Comments Verbal cues to brace as knee moves laterally out to side resisted clamshell Supine Exercise Name Reviewed verbally w/pt TA sequencial march Supine Exercise Name Sequential marching w/cues count for breath 1, 2,3,4 Side bilateral Reps/Minutes X10 each LE Comments post hip flexor stretch hamstring stretch Supine Exercise Name HS stretch/LE neural glide /c AP Side bilateral Equipment Used use towel behind thigh support , no strain on neck Reps/Minutes 2x L, 1x R- (10 AP) Comments Extra time to determine best position of hold Miky stretch Supine Exercise Name Hip flexor stretch - added knee flexion AROM X10 to each stretch Side bilateral Equipment Used off side of table Reps/Minutes 60 sec left and right LE X 2 each Comments post manual therapy, VC for breathing with diaphragm Thoracic Ext Supine Exercise Name Thoracic ext, posture press Resistance Pillow under neck/head Equipment Used hooklying, arms at side press into table Reps/Minutes 10 SH x10 Comments cued rhomboid & post arm engage into table- no LB arch FIg 4 Supine Exercise Name Fig 4 stretch, f/b Active hip ER x 10 Side bilateral Equipment Used pillow under head & folded towel under R hip level Reps/Minutes 60 sec x 2 Comments Good request folded towel A prop pelvis to keep level, cued ed hold time Sidelying Exercises Lateral Hip stretch Side bilateral Reps/Minutes 3' hip abd Side bilateral Resistance top hand front on table kickstand Reps/Minutes x15 each Comments impro stacked alignment on side, cued slower pacing better control/no momen Sitting Exercises SL long sit Sitting Exercise Name SL on plinth for long sit distalHS/Prox gastroc stretch Side bilateral Reps/Minutes 60SH each Comments Cuing to keep arch in back and to do ankle pumps after each 10 sec hold Self-Care/Home Management Treatment Education Patient Education Body Mechanics Other Education Pt educated in proper body mechanics for ADLs, proper sitting/standing posture, and reviewed log roll method for sup<>sit transfer. Educated pt in Proper posture for stress on back with different postures. Activities Self-Care/Home Management Activities Issued HEP: SL hip AD stretch . Handouts issued for proper body mechanics for ADLs, proper sitting/standing posture, and Proper posture for stress on back with different postures. PT-OP-T Assessment and Plan Start: 07/05/23 16:16 Freq: Status: Active Protocol: Document 09/27/23 14:34 LRN (Rec: 09/27/23 15:17 LRN [id number]) Physical Therapy Assessment Goals Three Impairment Decreased function per TAL score of 30/100 (20-39% impaired, score 20-). Impairment TAL score of 30/100 (20-39% impaired, score 20-39). Short Term Goal (STG) Improve core/hip/pelvic stability and strength with pt able to wash dishes > 10 minutes to finish dishes without back pain. 08/14/23: Having back weariness with doing dishes. if pain, uses heat pad that helps. TAL = 15/100 (1-19% impaired, score 1-19). 08/21/23: lasts about few min before back pain. Ed squat & pivot put dishes away. 08/28/23: slow progress: she reports filling up water pitchers standing in front sink hurts back. STG Duration 4 wks-08/10/23 (09/27/23: MET GOAL) Dentist Private Practice Goal (LTG) Pt is able to vacuum with proper body mechanics without LBP/R hip pain, TAL score 1-19 (1-19% impaired). 08/14/23: Able to vacuum with onset of LB/L hip pain (feels L hip pain won't ever go away ). LBP rated 1-2/10, not sharp anymore. TAL score is 14/100 (1-19% impaired). 08/28/23: Progressing: just middle of back weak but no pain. LTG Duration 8 wks-09/04/23 (08/14/23: MET GOAL) Two Impairment Decreased core/hip mobility Impairment Pain with moving around in bed . Short Term Goal (STG) Pt will be educated in self soft tissue mob to hips, abdomen and educated in pain management techniques. 07/19/23: Pt educated in self manual MFR to L abdominal upper quadrant. 07/23/23: self STM L TFL decreased anterior hip tension . 08/28/23: GOAL MET: self massage when needed and complaint with HEP every night to help back relief, couple nights ago had pain all night the pillow mgt isn't helping moves to much but find back best with pillow under thighs and use angle bed for comfort/ support. STG Duration 4 wks-08/10/23 GOAL MET Dentist Private Practice Goal (LTG) Pt will improve hip mobility to be able to move around in bed without pain. 07/31/2023 Observed patient perform log roll with good tech no grimacing during session 08/08/23: GOAL METpt ableto bridge and good log roll technique to move around in, sup<> sit in bed. LTG Duration 8 wks-09/04/23 GOAL MET One Impairment Pt lacks appropriate self care HEP. Short Term Goal (STG) Pt will be educated in log roll transfers, proper body mechanics for ADLs, proper sitting/standing posture. 07/12/23: Pt educated in log roll technique for transfers in/out of bed and for hip hinging with sit<>stand. 07/19/23: Pt educated in ex to promote proper sit/stand posture. 07/23/23: ed for continued seated and standing posture, use wall and added TB resisted shld ER, improved self corrections. 07/25/23: continued ed stand/sit posture. 08/08/23: coontinued ed side sleeping use pillows betwn BLEs and behind back, then body mechanics log roll, STS and hip hinge fwd cone picker basket and walk up /down stairs. 08/28/23: Progressing: good sup >SL>sit but further ed for sit >SL/Supine carryover 08/30/23 self initiated log roll this session, verbalizing steps. 09/27/23: Pt educated in proper body mechanics for ADLs , proper sitting/standing posture, and reviewed log roll method for sup<>sit transfer. STG Duration 2 wks-07/27/23 (09/27/23: MET GOAL) [facility] Goal (LTG) Pt will be independent in an effective self care HEP for LB /abdomen/hip mobility and LB/ core/hip strengthening, L/S, and shoulder/scapular stabilization. 07/12/23: HEP: R>L Hip ER stretch (Fig 4), Piriformis stretch, and lateral hip stretch. Gluteal L>R KTC stretch 07/19/23: HEP I/S: Sup/stand T/S ext and 07/23/23: added postural TB #1 to shld ER. 07/25/23: added side hip abd AROM. 08/08/23: added wall posture holds and can add resisted shld ER and resisted shld ext, sequencial TA august. 08/17/23: added core bridge lat scoot TH Act for improve engagement functional mobility without need BUE support, pn free. 08/21/23: added isometric abd STS eccentric taps 08/28/23: SL sliders vs easier home device Vazquez for progression TA standing support strength/endurance kitchen ADLs. LTG Duration 10/02/23 (09/27/23: MET GOAL ) Assessment Summary Assessment Pt is being seen for soft tissue dysfunction of the spine and abdomen, with onset of LBP and bilateral ASIS pain with palpation, associated with her colon resection. She has made very good progress towards managing her pain on a HEP. She demonstrates good knowledge of her HEP although she has not been able to do the ex's after her catarct surgery. She has been able to restart her HEP s/p catarct surgery without onset of pain, and prior to surgery was managing her pain with her HEP ; therefore the pt is ready for discharge to her HEP. Physical Therapy Plan Discharge Physical Therapy Discharge Reasons Goals Met Discharge Comments We would be more than happy to work with this pleasant individual again. Thank you for your referral.
== END 2023-10-01 12:24 | disposition home or self-care (01) ==
LOC: PHYS 14:30
PROVIDERS: Family Provider Family Medicine; PCP Family Medicine; Referring Provider Family Medicine; Visit Provider Family Medicine
DX: M54.50 Low back pain, unspecified (principal); G89.29 Other chronic pain
CPT/HCPCS: 97110; 97112; 97140; 97162; 97530; 97535

== ENCOUNTER → 2024-05-30 13:57 | Outpatient (CLI) | payer MEDICARE, BC, SELFPAY ==
--- NOTE | 2024-05-30 13:58 | DI.MG.S_ITS ---
BILATERAL DIGITAL SCREENING MAMMOGRAM 3D/2D WITH CAD: 05/30/2024 CLINICAL: Routine screening. Family history of breast cancer. Comparison is made to exams dated: 05/08/2023 mammogram, 05/02/2022 mammogram, and 03/04/2021 mammogram - [facility]. The breasts are extremely dense, which lowers the sensitivity of mammography (category d />75% glandular tissue). Current study was also evaluated with a Computer Aided Detection (CAD) system. There are benign vascular calcifications in both breasts. There also are benign post operative findings and biopsy clip in the left breast. No significant masses, calcifications, or other findings are seen in either breast. There has been no significant interval change. IMPRESSION: BENIGN There is no mammographic evidence of malignancy. A 1 year screening mammogram is recommended. Based on the Tyrer Cuzick model (a risk assessment model) the patient's lifetime risk is 11.3% and her 10 year risk is 7.8%. According to the ACR, ACS, and NCCN guidelines, an annual breast MRI exam along with mammogram is recommended if the patient's lifetime risk is 20% or greater. This exam was interpreted at Station ID: [id number]. NOTE: For mammograms, a report in lay terms will be sent to the patient. Approximately 15% of breast malignancies will not be visualized mammographically. In the management of a palpable breast mass, a negative mammogram must not discourage biopsy of a clinically suspicious lesion. Electronically Signed By: Gabriele brown/mikal:06/03/2024 07:34:50 letter sent: Normal Exam ACR BI-RADS Category 2: Benign
== END ==
PROVIDERS: Family Provider Family Medicine; PCP Family Medicine; Referring Provider Family Medicine; Visit Provider Family Medicine
DX: Z12.31 Encounter for screening mammogram for malignant neoplasm of breast (principal); Z80.3 Family history of malignant neoplasm of breast; R92.343 Mammographic extreme density, bilateral breasts
CPT/HCPCS: 77063; 77067

== ENCOUNTER → 2024-07-17 10:34 | Outpatient (CLI) | payer MEDICARE, BC, SELFPAY ==
[2024-07-17 11:01] LABS: Add Manual Diff / Slide Review NO; Basophils Absolute Auto 0 /uL (0-100); Basophils Percent Auto 0.8 % (0-2); Eosinophils Absolute Auto 100 /uL (0-450); Eosinophils Percent Auto 1.7 % (2-4); Hematocrit 41.2 % (36-46); Hemoglobin 13.7 g/dL (12.0-16.0); Lymphocytes Absolute Auto 1500 /uL (1100-4500); Lymphocytes Percent Auto 40.3 % (25-40); Mean Corpuscular HGB Conc 33.1 % (30-36); Mean Corpuscular Volume 90.7 fL (80-100); Monocytes Absolute Auto 400 /uL (0-900); Monocytes Percent Auto 9.8 % (3-14); Neutrophils Absolute Auto 1800 /uL (1500-7000); Neutrophils Percent Auto 47.4 % (50-75); Platelet Count 336 X10^3/uL (150-400); Red Blood Cell Count 4.55 X10^6/uL (4.0-5.2); Red Cell Distribution Width 13.4 % (11.6-14.8); White Blood Cell Count 3.7 X10^3/uL (4.5-11.0)
[2024-07-17 11:18] LABS: Alanine Aminotransferase 19 IU/L (<35); Albumin 4.2 g/dL (3.5-5.0); Albumin Globulin Ratio 1.8 (1.0-2.8); Alkaline Phosphatase 60 U/L (38-126); Aspartate Aminotransferase 29 IU/L (14-36); BUN Creatinine Ratio 11.8 (6-22); Bilirubin Total 1.5 mg/dL (0.2-1.3); Blood Urea Nitrogen 8 mg/dL (7-17); Calcium 9.2 mg/dL (8.4-10.2); Carbon Dioxide 32 mmol/L (22-32); Chloride 100 mmol/L (98-107); Cholesterol 214 mg/dL (140-199); Estimated Glomerular Filt Rate > 60 mL/min (>60); Globulin 2.3 g/dL (1.7-4.1); Glucose 87 mg/dL (80-110); HDL Cholesterol 93 mg/dL (40-60); HEMOLYSIS < 15 (0-50); LDL Cholesterol Calculated 105 mg/dL (<100); Potassium 3.9 mmol/L (3.4-5.1); Sodium 137 mmol/L (137-145); Total Protein 6.5 g/dL (6.3-8.2); Triglycerides 78 mg/dL (35-150)
== END ==
PROVIDERS: Family Provider Family Medicine; PCP Family Medicine; Referring Provider Family Medicine; Visit Provider Family Medicine
DX: I10 Essential (primary) hypertension (principal); E78.5 Hyperlipidemia, unspecified
CPT/HCPCS: 36415; 80053; 80061; 85025

== ENCOUNTER → 2025-06-05 12:41 | Outpatient (CLI) | payer MEDICARE, BC, SELFPAY ==
--- NOTE | 2025-06-05 12:42 | DI.MG.S_ITS ---
MM screening mammo BI: 06/05/2025. BI-RADS: 2 CLINICAL: 74-year old female for bilateral screening mammogram. Tyrer-Cuzick lifetime risk of 13.1%. No personal or first-degree family history of breast cancer. The patient had a prior left breast biopsy. PRIOR EXAMS 05/30/2024, 05/08/2023, 05/02/2022, 11/11/2021. MAMMOGRAPHY TECHNIQUE: 2D and 3D (tomosynthesis) digital mammographic views obtained, with additional images as needed for full coverage. Current study was also evaluated with a Computer Aided Detection (CAD) system. DENSITY D. The breasts are extremely dense, which lowers the sensitivity of mammography. MAMMOGRAPHY FINDINGS Right: No suspicious mass, asymmetry, microcalcification, or other abnormality seen. Left: Biopsy markers present on the left. There are no suspicious masses, calcifications, or other findings in the breast. IMPRESSION: Right * No evidence of malignancy. Left * No evidence of malignancy with benign findings. RECOMMENDATIONS Bilateral * Annual screening mammography. OVERALL ASSESSMENT CATEGORY BI-RADS-2: Benign. The [employer] recommends annual screening mammography beginning at age 40 for women with average risk of breast cancer. ELECTRONICALLY SIGNED: Valeria Ibarra M.D. on 06/09/2025 at 01:19:49 PM PT Interpreting Station ID: [id number]
== END ==
LOC: MAMMO 12:42
PROVIDERS: Family Provider Family Medicine; PCP Family Medicine; Referring Provider Family Medicine; Visit Provider Family Medicine
DX: Z12.31 Encounter for screening mammogram for malignant neoplasm of breast (principal); R92.343 Mammographic extreme density, bilateral breasts
CPT/HCPCS: 77063; 77067